=== PATIENT | male | born 1970 | race American Indian/Alaskan Native ===

== ENCOUNTER 2018-07-16 11:43 | Inpatient (IN) | payer MEDICARE ==
--- NOTE | 2018-07-16 12:05 | Emergency Department Report ---
HPI - General Time Seen by Provider: 07/16/18 11:56 - HPI HPI: 47-year-old male presents to the emergency department with complaint of a 3-4 day history of some slurred speech and difficulty talking. He also complains of some midsternal chest pain/pressure that has been going on since last night. The patient has a history of end-stage renal disease on dialysis on Sunday//Sunday. He last had a full dialysis session last . He did go to dialysis yesterday but only had about 2 hours done. 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 He did not receive anything for his symptoms and now. He slurred speech, he denies any headache, numbness or difficulty with movement but does say that he feels tremulous. ED Past Medical Hx - Medications Home Medications: Home Medications Medication Instructions Recorded Confirmed Last Taken Type AtorvaSTATin [Lipitor] 20 mg PO QHS 07/16/18 07/16/18 Unknown History Carvedilol [Coreg] 25 mg PO BID 07/16/18 07/16/18 Unknown History Ergocalciferol (Vitamin D2) 50,000 unit PO QWEEK 07/16/18 07/16/18 Unknown History [Drisdol] Gabapentin [Gralise] 300 mg PO QHS 07/16/18 07/16/18 Unknown History Losartan [Cozaar] 100 mg PO QDAY 07/16/18 07/16/18 Unknown History NIFEdipine [Nifedipine ER] 90 mg PO QHS 07/16/18 07/16/18 Unknown History Sevelamer Carbonate [Renvela] 2,400 mg PO TIDWM 07/16/18 07/16/18 Unknown History Topiramate [Topamax] 50 mg PO BID 07/16/18 07/16/18 Unknown History Venlafaxine [Effexor 37.5mg tab] 37.5 mg PO QDAY 07/16/18 07/16/18 Unknown History Vit B Comp C/Folic Acid/Vit D3 1 each PO DAILY 07/16/18 07/16/18 Unknown History [Dialyvite 800 Plus D Wafer] hydrOXYzine HCl [Hydroxyzine HCl] 25 mg PO TID 07/16/18 07/16/18 Unknown History ED Review of Systems ROS: Stated complaint: CHEST PAIN/SLURR SPEECH Other details as noted in HPI Comment: All other systems reviewed and negative Constitutional: denies: chills, fever Eyes: denies: eye pain, vision change ENT: denies: ear pain, throat pain Respiratory: denies: cough, wheezing Cardiovascular: chest pain, edema Gastrointestinal: denies: abdominal pain, vomiting Genitourinary: denies: dysuria, discharge Musculoskeletal: denies: back pain, arthralgia Skin: denies: rash, change in color Neurological: other (slurred speech). denies: headache Physical Exam - Physical Exam Physical Exam: GENERAL: The patient is well-developed well-nourished. HEENT: Normocephalic. Atraumatic. Patient has moist mucous membranes. EYES: Extraocular motions are intact. NECK: Supple. Trachea is midline. CHEST/LUNGS: Clear to auscultation. There is no respiratory distress noted. HEART/CARDIOVASCULAR: Regular. There is no tachycardia. There is no obvious murmur. ABDOMEN: Abdomen is soft, nontender. Patient has normal bowel sounds. There is no abdominal distention. SKIN: Skin is warm and dry. There are multiple b/l foot ulcerating wounds. Bilateral lower extremity nonpitting swelling. NEURO: The patient is awake, alert, and oriented. The patient is cooperative. The patient has no focal neurologic deficits. Patient has some stuttering speech. No pronator drift. No dysmetria. MUSCULOSKELETAL: There is no tenderness or deformity. There is no evidence of acute injury. ED Medical Decision Making - Lab Data Result diagrams: 07/16/18 12:12 07/16/18 12:16 - EKG Data -: EKG Interpreted by Me EKG shows normal: sinus rhythm, axis, intervals (prolonged DC interval), QRS complexes (LVH, Q waves to the inferior leads), ST-T waves Rate: bradycardia (58 bpm) - EKG Data When compared to previous EKG there are: previous EKG unavailable Interpretation: other (mild sinus bradycardia, prolonged DC interval, LVH, Q waves in the inferior leads) - Radiology Data Radiology results: report reviewed, image reviewed interpreted by me: Chest x-ray does not show any pneumothorax, pleural effusion, pneumonia or obvious focal consolidation. CT HEAD WITHOUT CONTRAST: HISTORY: Slurred speech. TECHNIQUE: Sequential 2.5mm CT images. COMPARISON: none. FINDINGS: Cerebral Parenchyma: Within normal limits. Cerebellum: Within normal limits. Brainstem: Within normal limits. Ventricles: Normal. Sella: Normal. Extra-axial spaces: Normal. Basal Cisterns: Normal. Intracranial Hemorrhage: None. Midline Shift: None. Calvarium: Normal. Sinuses: Normal. Mastoid Air Cells: Normal. Visualized Orbits: Normal. IMPRESSION: Cranial CT scan within normal limits. No acute intracranial process identified. Transcribed By: TTR Dictated By: SHARI MARTIN JR, MD Electronically Authenticated By: SHARI MARTIN JR, MD Signed Date/Time: 07/16/18 2435 - Medical Decision Making This patient presents to the emergency department with a complaint of a 3 day history of some slurred speech and a one-day history of some chest pain. EKG did not show any signs of ST elevation [place] or dysrhythmia. Chest x-ray did not show any acute process. CT scan of the head did not show any bleed, shift, mass, ischemia or any other acute process.the patient has elevated troponin levels but at the same time also is end-stage renal disease. He was given some aspirin to protect the heart. He has an elevated d-dimer level and a VQ scan will be ordered. The patient will be admitted to the hospital for further evaluation and treatment and was accepted for admission by the hospitalist, Dr. Carlton. - Differential Diagnosis MT, PE, CVA, TIA Critical Care Time: No Critical care attestation.: If time is entered above; I have spent that time in minutes in the direct care of this critically ill patient, excluding procedure time. ED Disposition Clinical Impression: Slurred speech, ESRD needing dialysis, Elevated troponin Chest pain Qualifiers: Chest pain type: unspecified Qualified Code(s): R07.9 - Chest pain, unspecified Disposition: OP ADMIT IP TO THIS HOSP Is pt being admited?: Yes Condition: Fair Time of Disposition: 14:45
[2018-07-16 12:33] LABS: Basophils % (Auto) 0.6 % (0.0-1.8); Eosinophils # (Auto) 0.3 K/mm3 (0.0-0.4); Eosinophils % (Auto) 3.1 % (0.0-4.3); Hematocrit 34.8 % (35.5-45.6); Hemoglobin 11.6 gm/dl (11.8-15.2); Lymphocytes # (Auto) 1.2 K/mm3 (1.2-5.4); Lymphocytes % (Auto) 13.7 % (13.4-35.0); Mean Corpuscular HGB Conc 33 % (32-34); Mean Corpuscular Volume 94 fl (84-94); Monocytes # (Auto) 0.8 K/mm3 (0.0-0.8); Monocytes % (Auto) 9.3 % (0.0-7.3); Platelet Count 138 K/mm3 (140-440); Red Cell Distribution Width 15.9 % (13.2-15.2)
[2018-07-16 12:37] LABS: INR 1.08 (0.87-1.13); Partial Thromboplastin Time 29.7 Sec. (24.2-36.6)
[2018-07-16 12:51] LABS: Calcium 8.8 mg/dL (8.4-10.2)
--- NOTE | 2018-07-16 13:35 | XRay Report ---
AP CHEST: HISTORY: chest pain Mild cardiomegaly is evident. This appears to be new since 10/07/09. Normal pulmonary vascularity. The lungs are clear. The bony structures are intact. IMPRESSION: Mild cardiomegaly. Lungs clear.
[2018-07-16 13:46] LABS: Chol/HDL Ratio 2.06 %
--- NOTE | 2018-07-16 13:51 | Cat Scan Report ---
CT HEAD WITHOUT CONTRAST: HISTORY: Slurred speech. TECHNIQUE: Sequential 2.5mm CT images. COMPARISON: none. FINDINGS: Cerebral Parenchyma: Within normal limits. Cerebellum: Within normal limits. Brainstem: Within normal limits. Ventricles: Normal. Sella: Normal. Extra-axial spaces: Normal. Basal Cisterns: Normal. Intracranial Hemorrhage: None. Midline Shift: None. Calvarium: Normal. Sinuses: Normal. Mastoid Air Cells: Normal. Visualized Orbits: Normal. IMPRESSION: Cranial CT scan within normal limits. No acute intracranial process identified.
[2018-07-16] MEDS ORDERED: BABY ASPIRIN PO ONE (14:48)
[2018-07-16] MEDS ORDERED: ASPIRIN ONE (16:40)
[2018-07-16] MEDS ORDERED: ZOFRAN IV PRN ×2 (20:34→20:58)
[2018-07-16] MEDS ORDERED: SODIUM CHLORIDE FLUSH SYRINGE 10 ML IV PRN ×2 (20:34→20:58)
--- NOTE | 2018-07-16 20:38 | History and Physical Report ---
History of Present Illness Date of examination: 07/16/18 Date of admission: 07/16/18 14:47 Chief complaint: Chest pain --for 1 day since last night History of present illness: 47-year-old -[place] male with history of end-stage renal disease, hypertension hyperlipidemia, vitamin D deficiency and peripheral neuropathy comes in for chest pain since last night. Chest pain is intermittent in nature. Retrosternal. Nonradiating. Pain is about 6 on a scale of 1-10. No diaphoresis no shortness of breath. Patient had dialysis yesterday but for only 2 hours. Patient says he had 3-4 days history of slurred speech but during my history taking there was no slurred speech or any weakness . No shortness of breath. No palpitations. No orthopnea. Patient also has a chronic open wound on left lower extremity elbows or ankle and medial aspect of the left foot. No fever or chills. Past Medical History End-stage renal disease Hypertension Hyperlipidemia Vitamin D deficiency. Peripheral neuropathy Depression Past surgical history AV fistula in left upper extremity, amputation of the right big toe cholecystectomy 4 eye surgeries Family history hypertension Diabetes--mother has both of them Social history does not smoke or abnormal alcohol Review of Systems ROS: Stated complaint: CHEST PAIN/SLURR SPEECH Other details as noted in HPI Comment: All other systems reviewed and negative Constitutional: denies: chills, fever Eyes: denies: eye pain, vision change ENT: denies: ear pain, throat pain Respiratory: denies: cough, wheezing Cardiovascular: chest pain, edema Gastrointestinal: denies: abdominal pain, vomiting Genitourinary: denies: dysuria, discharge Musculoskeletal: denies: back pain, arthralgia Skin: denies: rash, change in color Neurological: other (slurred speech). denies: headache 14 point review of systems--otherwise negative Medications and Allergies Allergies Allergy/AdvReac Type Severity Reaction Status Date / Time No Known Allergies Allergy Unverified 07/16/18 16:37 Home Medications Medication Instructions Recorded Confirmed Last Taken Type AtorvaSTATin [Lipitor] 20 mg PO QHS 07/16/18 07/16/18 Unknown History Carvedilol [Coreg] 25 mg PO BID 07/16/18 07/16/18 Unknown History Ergocalciferol (Vitamin D2) 50,000 unit PO QWEEK 07/16/18 07/16/18 Unknown History [Drisdol] Gabapentin [Gralise] 300 mg PO QHS 07/16/18 07/16/18 Unknown History Losartan [Cozaar] 100 mg PO QDAY 07/16/18 07/16/18 Unknown History NIFEdipine [Nifedipine ER] 90 mg PO QHS 07/16/18 07/16/18 Unknown History Sevelamer Carbonate [Renvela] 2,400 mg PO TIDWM 07/16/18 07/16/18 Unknown History Topiramate [Topamax] 50 mg PO BID 07/16/18 07/16/18 Unknown History Venlafaxine [Effexor 37.5mg tab] 37.5 mg PO QDAY 07/16/18 07/16/18 Unknown History Vit B Comp C/Folic Acid/Vit D3 1 each PO DAILY 07/16/18 07/16/18 Unknown History [Dialyvite 800 Plus D Wafer] hydrOXYzine HCl [Hydroxyzine HCl] 25 mg PO TID 07/16/18 07/16/18 Unknown History Exam - Constitutional Vitals: Temp Pulse Resp BP Pulse Ox 97.7 F 58 L 18 118/80 99 07/16/18 18:52 07/16/18 18:52 07/16/18 18:52 07/16/18 18:52 07/16/18 16:00 General appearance: Present: no acute distress, well-nourished - EENT Eyes: Present: PERRL ENT: hearing intact, clear oral mucosa - Neck Neck: Present: supple, normal ROM - Respiratory Respiratory effort: normal Respiratory: bilateral: CTA - Cardiovascular Rhythm: regular Heart Sounds: Present: S1 & S2. Absent: rub, click - Extremities Extremities: No edema, abnormal Extremity abnormal: ulceration (right foot ulcer 6 cm x 3 cm on the medial aspect of the left foot. Superficial and erythematous infection. Also open ulcer on the left tibia L6 centimeters above the ankle anteriorly. No drainage.), other (right foot great toe amputated amputated, hyperpigmentation both lower extremities.) Peripheral Pulses: within normal limits - Abdominal General gastrointestinal: Present: soft, non-tender, non-distended, normal bowel sounds Male genitourinary: Present: normal - Rectal Rectal Exam: deferred - Integumentary Integumentary: Present: clear, warm, dry - Musculoskeletal Musculoskeletal: gait normal, strength equal bilaterally - Psychiatric Psychiatric: appropriate mood/affect, intact judgment & insight - Neurologic Neurologic: CNII-XII intact, moves all extremities - Allied Health Allied health notes reviewed: nursing, case management Results - Labs CBC & Chem 7: 07/16/18 12:12 07/16/18 12:16 Labs: Laboratory Last Values WBC 9.0 K/mm3 (4.5-11.0) 07/16/18 12:12 RBC 3.70 M/mm3 (3.65-5.03) 07/16/18 12:12 Hgb 11.6 gm/dl (11.8-15.2) L 07/16/18 12:12 Hct 34.8 % (35.5-45.6) L 07/16/18 12:12 MCV 94 fl (84-94) 07/16/18 12:12 MCH 31 pg (28-32) 07/16/18 12:12 MCHC 33 % (32-34) 07/16/18 12:12 RDW 15.9 % (13.2-15.2) H 07/16/18 12:12 Plt Count 138 K/mm3 (140-440) L 07/16/18 12:12 Lymph % (Auto) 13.7 % (13.4-35.0) 07/16/18 12:12 [place] % (Auto) 9.3 % (0.0-7.3) H 07/16/18 12:12 Eos % (Auto) 3.1 % (0.0-4.3) 07/16/18 12:12 Baso % (Auto) 0.6 % (0.0-1.8) 07/16/18 12:12 Lymph # 1.2 K/mm3 (1.2-5.4) 07/16/18 12:12 [place] # 0.8 K/mm3 (0.0-0.8) 07/16/18 12:12 Eos # 0.3 K/mm3 (0.0-0.4) 07/16/18 12:12 Baso # 0.0 K/mm3 (0.0-0.1) 07/16/18 12:12 Seg Neutrophils % 73.3 % (40.0-70.0) H 07/16/18 12:12 Seg Neutrophils # 6.6 K/mm3 (1.8-7.7) 07/16/18 12:12 PT 14.7 Sec. (12.2-14.9) 07/16/18 12:16 INR 1.08 (0.87-1.13) 07/16/18 12:16 APTT 29.7 Sec. (24.2-36.6) 07/16/18 12:16 D-Dimer 473.16 ng/mlDDU (0-234) H 07/16/18 15:23 Sodium 138 mmol/L (137-145) 07/16/18 12:16 Potassium 4.9 mmol/L (3.6-5.0) 07/16/18 12:16 Chloride 97.2 mmol/L (98-107) L 07/16/18 12:16 Carbon Dioxide 20 mmol/L (22-30) L 07/16/18 12:16 Anion Gap 26 mmol/L 07/16/18 12:16 BUN 83 mg/dL (9-20) H 07/16/18 12:16 Creatinine 8.8 mg/dL (0.8-1.5) H 07/16/18 12:16 Estimated GFR 8 ml/min 07/16/18 12:16 BUN/Creatinine Ratio 9 % 07/16/18 12:16 Glucose 169 mg/dL (75-100) H 07/16/18 12:16 Calcium 8.8 mg/dL (8.4-10.2) 07/16/18 12:16 Total Bilirubin 0.40 mg/dL (0.1-1.2) 07/16/18 12:16 AST 32 units/L (5-40) 07/16/18 12:16 ALT 46 units/L (7-56) 07/16/18 12:16 Alkaline Phosphatase 241 units/L (35-129) H 07/16/18 12:16 Troponin T 1.060 ng/mL (0.00-0.029) H* 07/16/18 19:00 Total Protein 7.9 g/dL (6.3-8.2) 07/16/18 12:16 Albumin 3.0 g/dL (3.9-5) L 07/16/18 12:16 Albumin/Globulin Ratio 0.6 % 07/16/18 12:16 Triglycerides 36 mg/dL (2-149) 07/16/18 12:16 Cholesterol 91 mg/dL (50-199) 07/16/18 12:16 LDL Cholesterol Direct 50 mg/dL (50-130) 07/16/18 12:16 HDL Cholesterol 44 mg/dL (40-59) 07/16/18 12:16 Cholesterol/HDL Ratio 2.06 % 07/16/18 12:16 - Imaging and Cardiology EKG: report reviewed Chest x-ray: report reviewed Imaging and Cardiology: EKG did not show any signs of ST elevation [place] or dysrhythmia Chest x-ray did not show any acute process. CT scan of the head did not show any bleed, shift, mass, ischemia or any other acute process. The patient has elevated troponin levels but at the same time also is end-stage renal disease. He has an elevated d-dimer level and a VQ scan will be ordered. Assessment and Plan Advance Directives: Yes (full code) VTE prophylaxis?: Chemical Plan of care discussed with patient/family: Yes - Patient Problems (1) Chest pain Current Visit: Yes Status: Acute Qualifiers: Chest pain type: unspecified Qualified Code(s): R07.9 - Chest pain, unspecified Plan to address problem: Serial troponins and Lexiscan ordered Costochondritis and gastroesophageal reflux disease in the differential diagnosis Costochondritis unlikely--no chest wall tenderness (2) ESRD needing dialysis Current Visit: Yes Status: Chronic Plan to address problem: Nephrology consultation for hemo- dialysis (3) Type 2 diabetes mellitus Current Visit: Yes Status: Chronic Qualifiers: Diabetes mellitus rn long term care insulin use: without intermediate use Plan to address problem: Coverage for now Check hemoglobin A1c (4) Elevated troponin Current Visit: Yes Status: Acute Plan to address problem: Secondary to end-stage renal disease Alison scan ordered (5) Slurred speech Current Visit: Yes Status: Resolved Plan to address problem: There is no slurred speech during my examination and patient is a very poor historian TIA workup was not ordered because there was no slurred speech. Patient says he had slurred speech for 4 days which is unusual to resolve by itself in the emergency room. Hence doubt the complaint. Hence no workup on TIA. (6) Hypertension Current Visit: Yes Status: Chronic Qualifiers: Hypertension type: essential hypertension Qualified Code(s): I10 - Essential (primary) hypertension Plan to address problem: Continue antihypertensives (7) Hyperlipidemia Current Visit: Yes Status: Chronic Qualifiers: Hyperlipidemia type: mixed hyperlipidemia Qualified Code(s): E78.2 - Mixed hyperlipidemia Plan to address problem: Continue statins (8) Peripheral neuropathy Current Visit: Yes Status: Chronic Qualifiers: Peripheral neuropathy type: polyneuropathy, unspecified Qualified Code(s): G62.9 - Polyneuropathy, unspecified Plan to address problem: Continue gabapentin (9) Depression Current Visit: Yes Status: Chronic Qualifiers: Depression Type: unspecified Qualified Code(s): F32.9 - Major depressive disorder, single episode, unspecified Plan to address problem: Continue Effexor 37.5 mg daily (10) Vitamin D deficiency Current Visit: Yes Status: Chronic Plan to address problem: Continue vitamin D per schedule (11) DVT prophylaxis Current Visit: Yes Status: Acute Plan to address problem: On heparin and GI prophylaxis
[2018-07-16] MEDS ORDERED: TYLENOL PO PRN (20:58)
[2018-07-16] MEDS ORDERED: SODIUM CHLORIDE FLUSH SYRINGE 10 ML IV SCH (22:00)
[2018-07-16] MEDS ORDERED: HEPARIN SUB-Q SCH (22:00)
[2018-07-16] MEDS: PROCARDIA XL PO SCH (22:47)
[2018-07-16] MEDS: PEPCID PO SCH (22:47)
[2018-07-16] MEDS: COZAAR PO SCH (22:47)
[2018-07-16] MEDS: HumaLOG SUB-Q SCH (22:50)
[2018-07-16] MEDS: Renal Caps PO SCH (22:51)
[2018-07-16] MEDS: COREG PO SCH (22:51)
[2018-07-16] MEDS: TOPAMAX PO SCH (22:52)
[2018-07-16] MEDS: EFFEXOR PO SCH (22:52)
[2018-07-16] MEDS: SODIUM CHLORIDE FLUSH SYRINGE 10 ML IV SCH (22:54)
[2018-07-16] MEDS: PERCOCET 5/325 PO PRN (23:40)
[2018-07-16] MEDS: ATARAX PO SCH (23:40)
[2018-07-17 06:35] LABS: Basophils # (Auto) 0.1 K/mm3 (0.0-0.1); Basophils % (Auto) 0.7 % (0.0-1.8); Eosinophils # (Auto) 0.2 K/mm3 (0.0-0.4); Eosinophils % (Auto) 3.1 % (0.0-4.3); Hematocrit 34.6 % (35.5-45.6); Hemoglobin 11.3 gm/dl (11.8-15.2); Lymphocytes % (Auto) 12.1 % (13.4-35.0); Mean Corpuscular HGB Conc 33 % (32-34); Mean Corpuscular Volume 95 fl (84-94); Monocytes # (Auto) 0.8 K/mm3 (0.0-0.8); Platelet Count 129 K/mm3 (140-440); Red Blood Count 3.63 M/mm3 (3.65-5.03); Red Cell Distribution Width 16.2 % (13.2-15.2)
[2018-07-17 07:02] LABS: Albumin 3.2 g/dL (3.9-5); Calcium 8.6 mg/dL (8.4-10.2)
[2018-07-17] MEDS: HumaLOG SUB-Q SCH ×4 (07:30→22:45)
[2018-07-17] MEDS ORDERED: ATARAX PO SCH (08:00)
[2018-07-17] MEDS: RENVELA PO SCH ×3 (08:00→19:11)
[2018-07-17] MEDS: ATARAX PO SCH ×3 (08:00→21:25)
[2018-07-17] MEDS: EFFEXOR PO SCH (10:00)
[2018-07-17] MEDS: VITAMIN D2 PO SCH (10:00)
[2018-07-17] MEDS: TOPAMAX PO SCH ×2 (10:00→22:45)
[2018-07-17] MEDS: COZAAR PO SCH (10:00)
[2018-07-17] MEDS: COREG PO SCH ×2 (10:00→22:45)
[2018-07-17] MEDS: SODIUM CHLORIDE FLUSH SYRINGE 10 ML IV SCH ×2 (10:00→22:50)
[2018-07-17] MEDS: PEPCID PO SCH ×2 (10:00→22:45)
[2018-07-17] MEDS: Renal Caps PO SCH (10:00)
--- NOTE | 2018-07-17 11:07 | Consultation ---
History of Present Illness - Reason for Consult Consult date: 07/17/18 end stage renal disease - History of Present Illness This is a 47 year old male who presented to the hospital for evaluation of slurred speech. Patient states on Sunday he began to have slurred speech and so he went to [facility] and they gave him fluids and send him home per patient. Patient decided to come to this E. for further evaluation. Patient has ESRD and receives hemodialysis at [facility] and states he was last dialyzed there on as Sunday he was at [facility] and yesterday he came here. Patient also has history of Hypertension, Diabetes Mellitus and PVD. We are being consulted for management of this patient's ESRD. Past History Past Medical History: diabetes, dialysis, hypertension, hyperlipidemia, PVD, renal failure Past Surgical History: Other (Left AVF placement) Social history: no significant social history Family history: no significant family history Medications and Allergies Allergies Allergy/AdvReac Type Severity Reaction Status Date / Time No Known Allergies Allergy Unverified 07/16/18 16:37 Home Medications Medication Instructions Recorded Confirmed Last Taken Type AtorvaSTATin [Lipitor] 20 mg PO QHS 07/16/18 07/16/18 Unknown History Carvedilol [Coreg] 25 mg PO BID 07/16/18 07/16/18 Unknown History Ergocalciferol (Vitamin D2) 50,000 unit PO QWEEK 07/16/18 07/16/18 Unknown History [Drisdol] Gabapentin [Gralise] 300 mg PO QHS 07/16/18 07/16/18 Unknown History Losartan [Cozaar] 100 mg PO QDAY 07/16/18 07/16/18 Unknown History NIFEdipine [Nifedipine ER] 90 mg PO QHS 07/16/18 07/16/18 Unknown History Sevelamer Carbonate [Renvela] 2,400 mg PO TIDWM 07/16/18 07/16/18 Unknown History Topiramate [Topamax] 50 mg PO BID 07/16/18 07/16/18 Unknown History Venlafaxine [Effexor 37.5mg tab] 37.5 mg PO QDAY 07/16/18 07/16/18 Unknown History Vit B Comp C/Folic Acid/Vit D3 1 each PO DAILY 07/16/18 07/16/18 Unknown History [Dialyvite 800 Plus D Wafer] hydrOXYzine HCl [Hydroxyzine HCl] 25 mg PO TID 07/16/18 07/16/18 Unknown History Active Meds: Active Medications Acetaminophen (Tylenol) 650 mg PO Q4H PRN PRN Reason: Pain MILD(1-3)/Fever >100.5/SANCEHZ Atorvastatin Calcium (Lipitor) 20 mg PO QHS [facility] Last Admin: 07/16/18 22:51 Dose: 20 mg Documented by: Carvedilol (Coreg) 25 mg PO BID [facility] Last Admin: 07/16/18 22:51 Dose: Not Given Documented by: Ergocalciferol (Vitamin D2) 50,000 unit PO [facility] Famotidine (Pepcid) 10 mg PO BID [facility] Last Admin: 07/16/18 22:47 Dose: 10 mg Documented by: Heparin Sodium (Porcine) (Heparin) 5,000 unit SUB-Q Q12HR [facility] Last Admin: 07/16/18 22:53 Dose: 5,000 unit Documented by: Hydroxyzine HCl (Atarax) 25 mg PO TID [facility] Last Admin: 07/16/18 23:40 Dose: Not Given Documented by: Insulin Human Lispro (Humalog) 0 unit SUB-Q [facility]; Protocol Last Admin: 07/16/18 22:50 Dose: 8 unit Documented by: Losartan Potassium (Cozaar) 100 mg PO QDAY [facility] Last Admin: 07/16/18 22:47 Dose: 100 mg Documented by: Multivit/Ca Carb/B Cmplx/FA/Prenat (Renal Caps) 1 cap PO DAILY [facility] Last Admin: 07/16/18 22:51 Dose: 1 cap Documented by: Nifedipine (Procardia Xl) 90 mg PO QHS [facility] Last Admin: 07/16/18 22:47 Dose: 90 mg Documented by: Ondansetron HCl (Zofran) 4 mg IV Q8H PRN PRN Reason: Nausea And Vomiting Oxycodone/Acetaminophen (Percocet 5/325) 1 tab PO Q6H PRN PRN Reason: Pain, Moderate (4-6) Last Admin: 07/16/18 23:40 Dose: 1 tab Documented by: Sevelamer Carbonate (Renvela) 2,400 mg PO TIDWM [facility] Sodium Chloride (Sodium Chloride Flush Syringe 10 Ml) 10 ml IV BID [facility] Last Admin: 07/16/18 22:54 Dose: 10 ml Documented by: Sodium Chloride (Sodium Chloride Flush Syringe 10 Ml) 10 ml IV PRN PRN PRN Reason: LINE FLUSH Topiramate (Topamax) 50 mg PO BID [facility] Last Admin: 07/16/18 22:52 Dose: 50 mg Documented by: Venlafaxine HCl (Effexor) 37.5 mg PO QDAY [facility] Last Admin: 07/16/18 22:52 Dose: 37.5 mg Documented by: Review of Systems Constitutional: fatigue, no weight loss, no weight gain, no fever, no chills, no sweats Ears, nose, mouth and throat: no ear pain, no ear discharge, no tinnitis, no decreased hearing, no nose pain Cardiovascular: edema, no chest pain, no orthopnea, no palpitations, no rapid/irregular heart beat, no syncope, no lightheadedness, no shortness of breath Respiratory: no cough with sputum, no shortness of breath, no dyspnea on exertion Gastrointestinal: no abdominal pain, no nausea, no vomiting, no diarrhea, no constipation Rectal: no pain, no incontinence, no bleeding Musculoskeletal: other (wounds to feet), no neck stiffness, no neck pain, no shooting arm pain Integumentary: foot/leg ulcers Neurological: no head injury, no transient paralysis, no seizures, no syncope, no tremors Psychiatric: no anxiety, no memory loss, no change in sleep habits, no sleep disturbances, no insomnia, no hypersomnia Endocrine: no cold intolerance, no heat intolerance, no polyphagia, no excessive thirst, no polydipsia Hematologic/Lymphatic: no easy bruising, no easy bleeding, no lymphadenopathy Exam - Vital Signs Vital signs: Vital Signs Temp Pulse Resp BP Pulse Ox 97.7 F 60 18 111/69 99 07/16/18 11:49 07/16/18 11:49 07/16/18 11:49 07/16/18 11:49 07/16/18 11:49 - General Appearance General appearance: well-developed, appears stated age, fatigue EENT: ATNC, PERRL, hearing intact, vision intact Neck: Present: neck supple, trachea midline Respiratory: Decreased Breath Sounds Heart: bradycardia, S1S2 Gastrointestinal: Present: normoactive bowel sounds Integumentary: warm and dry, hyperpigmentation, chronic venous stasis Neurologic: alert and oriented x3, other (has slurred speech) Musculoskeletal: Present: joint swelling, other (has wounds to bilateral legs, has andrea dressing. Has left AVF intact) Psychiatric: cooperative Results - Lab Results 07/17/18 05:58 07/17/18 05:58 Most recent lab results Calcium 8.6 mg/dL (8.4-10.2) 07/17/18 05:58 Assessment and Plan End Stage Renal Disease: -Hemodialysis today for UF and clearance -Has left AVF -Fluid restriction of 1 liter per day -Renal diet -Obtain daily weights -Monitor I/O's -Assess dialysis needs daily Slurred Speech: -Head CT normal -As per Attending PVD: -Duplex scan- pending Hypertension: -On Coreg and Losartan -Adjust regimen as needed Diabetes Mellitus: -On insulin as per primary
[2018-07-17] MEDS ORDERED: NACL 0.9% 100 ML IV PRN (11:23)
[2018-07-17] MEDS ORDERED: ALBURX 25% (ALBUMIN) IV PRN (11:23)
--- NOTE | 2018-07-17 12:02 | Consultation ---
History of Present Illness Consult date: 07/17/18 Requesting physician: BRET VELAZQUEZ Consult reason: chest pain, elevated troponin History of present illness: The pt is a 47 year old male with past medical history of ESRD on HD ([facility]), HTN, DM, PVD, blindness. He reports that he sees a stitch welder at [facility] once per year. He presented with complaints of chest pain since last night. He states that he was laying in bed when the pain began. He describes the pain as a constant precordial pressure which is currently resolved. He also experienced some SOB. He admits that he missed dialysis on both this past Sunday and Sunday. Pt denies any prior AMI, CAD, HF or arrhythmia. He denies any prior cardiac w/u. Past History Past Medical History: diabetes, dialysis, hypertension, PVD, renal failure Past Surgical History: Other (Left AVF placement) Social history: no significant social history Family history: no significant family history Medications and Allergies Allergies Allergy/AdvReac Type Severity Reaction Status Date / Time No Known Allergies Allergy Unverified 07/16/18 16:37 Home Medications Medication Instructions Recorded Confirmed Last Taken Type AtorvaSTATin [Lipitor] 20 mg PO QHS 07/16/18 07/16/18 Unknown History Carvedilol [Coreg] 25 mg PO BID 07/16/18 07/16/18 Unknown History Ergocalciferol (Vitamin D2) 50,000 unit PO QWEEK 07/16/18 07/16/18 Unknown History [Drisdol] Gabapentin [Gralise] 300 mg PO QHS 07/16/18 07/16/18 Unknown History Losartan [Cozaar] 100 mg PO QDAY 07/16/18 07/16/18 Unknown History NIFEdipine [Nifedipine ER] 90 mg PO QHS 07/16/18 07/16/18 Unknown History Sevelamer Carbonate [Renvela] 2,400 mg PO TIDWM 07/16/18 07/16/18 Unknown History Topiramate [Topamax] 50 mg PO BID 07/16/18 07/16/18 Unknown History Venlafaxine [Effexor 37.5mg tab] 37.5 mg PO QDAY 07/16/18 07/16/18 Unknown History Vit B Comp C/Folic Acid/Vit D3 1 each PO DAILY 07/16/18 07/16/18 Unknown History [Dialyvite 800 Plus D Wafer] hydrOXYzine HCl [Hydroxyzine HCl] 25 mg PO TID 07/16/18 07/16/18 Unknown History Active Meds: Active Medications Acetaminophen (Tylenol) 650 mg PO Q4H PRN PRN Reason: Pain MILD(1-3)/Fever >100.5/SANCHEZ Albumin Human (Alburx 25% (Albumin)) 12.5 gm IV JOSE PRN PRN Reason: Hypotension Atorvastatin Calcium (Lipitor) 20 mg PO QHS [facility] Last Admin: 07/16/18 22:51 Dose: 20 mg Documented by: Carvedilol (Coreg) 25 mg PO BID [facility] Last Admin: 07/16/18 22:51 Dose: Not Given Documented by: Ergocalciferol (Vitamin D2) 50,000 unit PO We [facility] Famotidine (Pepcid) 10 mg PO BID [facility] Last Admin: 07/16/18 22:47 Dose: 10 mg Documented by: Heparin Sodium (Porcine) (Heparin) 5,000 unit SUB-Q Q12HR [facility] Last Admin: 07/16/18 22:53 Dose: 5,000 unit Documented by: Hydroxyzine HCl (Atarax) 25 mg PO TID [facility] Last Admin: 07/16/18 23:40 Dose: Not Given Documented by: Sodium Chloride (Nacl 0.9%) 100 mls @ 999 mls/hr IV JOSE PRN PRN Reason: Hypotension Insulin Human Lispro (Humalog) 0 unit SUB-Q ACHS [facility]; Protocol Last Admin: 07/16/18 22:50 Dose: 8 unit Documented by: Losartan Potassium (Cozaar) 100 mg PO QDAY [facility] Last Admin: 07/16/18 22:47 Dose: 100 mg Documented by: Multivit/Ca Carb/B Cmplx/FA/Prenat (Renal Caps) 1 cap PO DAILY [facility] Last Admin: 07/16/18 22:51 Dose: 1 cap Documented by: Nifedipine (Procardia Xl) 90 mg PO QHS [facility] Last Admin: 07/16/18 22:47 Dose: 90 mg Documented by: Ondansetron HCl (Zofran) 4 mg IV Q8H PRN PRN Reason: Nausea And Vomiting Oxycodone/Acetaminophen (Percocet 5/325) 1 tab PO Q6H PRN PRN Reason: Pain, Moderate (4-6) Last Admin: 07/16/18 23:40 Dose: 1 tab Documented by: Sevelamer Carbonate (Renvela) 2,400 mg PO TIDWM [facility] Sodium Chloride (Sodium Chloride Flush Syringe 10 Ml) 10 ml IV BID [facility] Last Admin: 07/16/18 22:54 Dose: 10 ml Documented by: Sodium Chloride (Sodium Chloride Flush Syringe 10 Ml) 10 ml IV PRN PRN PRN Reason: LINE FLUSH Topiramate (Topamax) 50 mg PO BID [facility] Last Admin: 07/16/18 22:52 Dose: 50 mg Documented by: Venlafaxine HCl (Effexor) 37.5 mg PO QDAY [facility] Last Admin: 07/16/18 22:52 Dose: 37.5 mg Documented by: Review of Systems Constitutional: no weight loss, no weight gain, no fever, no chills, no sweats Ears, nose, mouth and throat: no ear pain, no nose pain, no sinus pressure, no sinus pain Cardiovascular: chest pain, shortness of breath, high blood pressure, no orthopnea, no palpitations, no rapid/irregular heart beat, no edema, no syncope, no lightheadedness, no paroxysmal nocturnal dyspnea, no leg edema Respiratory: shortness of breath, no cough, no congestion, no wheezing, no pain on inspiration Gastrointestinal: no abdominal pain, no nausea, no vomiting, no diarrhea, no constipation, no change in bowel habits Genitourinary Male: no dysuria, no hematuria, no flank pain, no discharge, no urinary frequency, no urinary hesitancy Musculoskeletal: no neck stiffness, no neck pain, no shooting arm pain, no arm numbness/tingling, no low back pain, no shooting leg pain, no leg numbness/tingling Integumentary: no rash, no pruritis, no redness, no sores, no wounds Neurological: no head injury, no paralysis, no weakness, no parathesias, no numbness, no tingling, no seizures, no syncope Psychiatric: no anxiety Endocrine: no cold intolerance, no heat intolerance Hematologic/Lymphatic: no easy bruising, no easy bleeding Allergic/Immunologic: no urticaria, no wheezing Physical Examination Vital Signs Temp Pulse Resp BP Pulse Ox 97.7 F 60 18 111/69 99 07/16/18 11:49 07/16/18 11:49 07/16/18 11:49 07/16/18 11:49 07/16/18 11:49 General appearance: no acute distress HEENT: Positive: Normocephaly, Mucus Membranes Moist Neck: Positive: neck supple, trachea midline Cardiac: Positive: Reg Rate and Rhythm, S1/S2 Lungs: Positive: Decreased Breath Sounds Neuro: Positive: Grossly Intact Abdomen: Positive: Soft. Negative: Tender Skin: Positive: Other (bilateral foot wounds in dressings ) Extremities: Present: Other (bilateral foot wounds covered with dressings ) Results 07/17/18 05:58 07/17/18 05:58 Cardiac Enzymes 07/16/18 07/17/18 Range/Units 12:16 05:58 AST 32 33 (5-40) units/L Coagulation 07/16/18 Range/Units 12:16 PT 14.7 (12.2-14.9) Sec. INR 1.08 (0.87-1.13) APTT 29.7 (24.2-36.6) Sec. Lipids 07/16/18 Range/Units 12:16 Triglycerides 36 (2-149) mg/dL Cholesterol 91 (50-199) mg/dL HDL Cholesterol 44 (40-59) mg/dL Cholesterol/HDL Ratio 2.06 % CBC 07/16/18 07/17/18 Range/Units 12:12 05:58 WBC 9.0 8.0 (4.5-11.0) K/mm3 RBC 3.70 3.63 L (3.65-5.03) M/mm3 Hgb 11.6 L 11.3 L (11.8-15.2) gm/dl Hct 34.8 L 34.6 L (35.5-45.6) % Plt Count 138 L 129 L (140-440) K/mm3 Lymph # 1.2 1.0 L (1.2-5.4) K/mm3 [place] # 0.8 0.8 (0.0-0.8) K/mm3 Eos # 0.3 0.2 (0.0-0.4) K/mm3 Baso # 0.0 0.1 (0.0-0.1) K/mm3 Comprehensive Metabolic Panel 07/16/18 07/17/18 Range/Units 12:16 05:58 Sodium 138 137 (137-145) mmol/L Potassium 4.9 4.9 (3.6-5.0) mmol/L Chloride 97.2 L 94.9 L (98-107) mmol/L Carbon Dioxide 20 L 21 L (22-30) mmol/L BUN 83 H 94 H (9-20) mg/dL Creatinine 8.8 H 9.5 H (0.8-1.5) mg/dL Glucose 169 H 281 H (75-100) mg/dL Calcium 8.8 8.6 (8.4-10.2) mg/dL AST 32 33 (5-40) units/L ALT 46 48 (7-56) units/L Alkaline Phosphatase 241 H 257 H (35-129) units/L Total Protein 7.9 8.2 (6.3-8.2) g/dL Albumin 3.0 L 3.2 L (3.9-5) g/dL - Imaging and Cardiology Echo: pending EKG: report reviewed, image reviewed EKG interpretations - Telemetry EKG Rhythm: Sinus Rhythm - EKG Sinus rhythms and dysrhythmias: sinus rhythm Chamber hypertrophy or enlargement: left ventricular hypertro Myocardial infarction: inferior WI (old age inde Assessment and Plan Initiate heparin gtt and ASA in setting of significant elevated cardiac enzymes, although suspect NSTEMI type 2. Pt currently reports resolution of chest pain, ECG with no acute ischemic changes. Agree with all other present cardiac management. Obtain echo. Pt with elevated DDimer - he is to have V/Q scan today and stress test on Sunday, 07/19. The patient has been seen in conjunction with Dr. Caren Asif who agrees with the assessment and plan of care. - Patient Problems (1) Chest pain Current Visit: Yes Status: Acute Qualifiers: Chest pain type: unspecified Qualified Code(s): R07.9 - Chest pain, unspecified (2) NSTEMI (non-ST elevated myocardial infarction) Current Visit: Yes Status: Acute (3) Elevated d-dimer Current Visit: Yes Status: Acute (4) ESRD needing dialysis Current Visit: Yes Status: Chronic (5) Hypertension Current Visit: Yes Status: Chronic Qualifiers: Hypertension type: essential hypertension Qualified Code(s): I10 - Essential (primary) hypertension (6) Type 2 diabetes mellitus Current Visit: Yes Status: Chronic Qualifiers: Diabetes mellitus manager long term care insulin use: without nursing home use (7) PVD (peripheral vascular disease) Current Visit: Yes Status: Chronic
[2018-07-17] MEDS ORDERED: HEPARIN 10,000 UNITS/10 ML IV ONE (12:11)
--- NOTE | 2018-07-17 12:35 | Nuclear Medicine Report ---
LUNG SCAN, VENTILATION AND PERFUSION: History: Elevated d-dimer. Technique: 5mci of Tc99m MAA was infused for the perfusion images. 15mci XE 133 gas was inhaled for the ventilatory images. Correlation is made with a chest x-ray dated . Findings: Inhalation of Xenon gas demonstrates a normal distribution of the activity throughout both lungs. The wash out phases show no focal retention of activity. After injection of Technetium 99m macroaggregated albumin gamma camera imaging of the lungs in multiple projections demonstrates normal pulmonary contours with a homogeneous distribution of activity. No focal areas of perfusion deficiency are identified. IMPRESSION: Low probability for pulmonary embolus.
[2018-07-17 13:20] LABS: Hematocrit 34.4 % (35.5-45.6); Hemoglobin 11.4 gm/dl (11.8-15.2)
[2018-07-17 13:27] LABS: INR 1.19 (0.87-1.13)
[2018-07-17 13:28] LABS: Partial Thromboplastin Time 32.6 Sec. (24.2-36.6)
--- NOTE | 2018-07-17 15:44 | Progress Note ---
Assessment and Plan Assessment and plan: (1) Chest pain - Troponins were negative - We'll do stress test (2) ESRD needing dialysis - Nephrology consulted and will have hemodialysis (3) Type 2 diabetes mellitus - Poorly controlled - Hemoglobin A1c is 10.5 - Sliding-scale insulin, Lantus 20 units daily at bedtime will be started tonight, I'll give him a dose of Lantus 10 units - Accu-Chek, ADA diet, monitoring and adjust as needed (4) Elevated troponin - Cardiology consulted - We'll follow the results of Lexiscan (5) Slurred speech - Patient said he went [place] when he has slurred speech and told has TIA but no workup was done - CT head was done and negative (6) Hypertension Continue antihypertensives (7) Hyperlipidemia Continue statins (8) Peripheral neuropathy Continue gabapentin (9) Depression Continue Effexor 37.5 mg daily (10) Vitamin D deficiency Continue vitamin D per schedule (11) DVT prophylaxis On heparin and GI prophylaxis History Interval history: Patient was seen and evaluated this morning, patient is legally blind. Alert and oriented. Noticed leg swelling and ulcer 3 days ago. Hospitalist Physical - Physical exam Narrative exam: Not in cardiopulmonary distress. The patient appeared well nourished and normally developed. Vital signs as documented. Head exam is unremarkable. No scleral icterus . Neck is without jugular venous distension, thyromegaly, or carotid bruits. Lungs are clear to auscultation. Cardiac exam reveals regular rate and Rhythm. First and second heart sounds normal. No murmurs, rubs or gallops. Abdominal exam reveals normal bowel sounds, no masses, no organomegaly and no aortic enlargement. Extremities bliateral cronic LE swelling and ulcer on the left leg and foot. 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 No focal weakness. - Constitutional Vitals: Temp Pulse Resp BP Pulse Ox 97.9 F 58 L 18 141/80 97 07/17/18 01:42 07/17/18 04:00 07/17/18 01:12 07/17/18 01:12 07/17/18 08:57 General appearance: Present: no acute distress Results - Labs CBC & Chem 7: 07/17/18 12:52 07/17/18 05:58 Labs: Laboratory Last Values WBC 8.0 K/mm3 (4.5-11.0) 07/17/18 05:58 RBC 3.63 M/mm3 (3.65-5.03) L 07/17/18 05:58 Hgb 11.4 gm/dl (11.8-15.2) L 07/17/18 12:52 Hct 34.4 % (35.5-45.6) L 07/17/18 12:52 MCV 95 fl (84-94) H 07/17/18 05:58 MCH 31 pg (28-32) 07/17/18 05:58 MCHC 33 % (32-34) 07/17/18 05:58 RDW 16.2 % (13.2-15.2) H 07/17/18 05:58 Plt Count 122 K/mm3 (140-440) L 07/17/18 12:52 Lymph % (Auto) 12.1 % (13.4-35.0) L 07/17/18 05:58 [place] % (Auto) 10.0 % (0.0-7.3) H 07/17/18 05:58 Eos % (Auto) 3.1 % (0.0-4.3) 07/17/18 05:58 Baso % (Auto) 0.7 % (0.0-1.8) 07/17/18 05:58 Lymph # 1.0 K/mm3 (1.2-5.4) L 07/17/18 05:58 [place] # 0.8 K/mm3 (0.0-0.8) 07/17/18 05:58 Eos # 0.2 K/mm3 (0.0-0.4) 07/17/18 05:58 Baso # 0.1 K/mm3 (0.0-0.1) 07/17/18 05:58 Seg Neutrophils % 74.1 % (40.0-70.0) H 07/17/18 05:58 Seg Neutrophils # 5.9 K/mm3 (1.8-7.7) 07/17/18 05:58 PT 15.9 Sec. (12.2-14.9) H 07/17/18 12:52 INR 1.19 (0.87-1.13) H 07/17/18 12:52 APTT 32.6 Sec. (24.2-36.6) 07/17/18 12:52 D-Dimer 473.16 ng/mlDDU (0-234) H 07/16/18 15:23 Sodium 137 mmol/L (137-145) 07/17/18 05:58 Potassium 4.9 mmol/L (3.6-5.0) 07/17/18 05:58 Chloride 94.9 mmol/L (98-107) L 07/17/18 05:58 Carbon Dioxide 21 mmol/L (22-30) L 07/17/18 05:58 Anion Gap 26 mmol/L 07/17/18 05:58 BUN 94 mg/dL (9-20) H 07/17/18 05:58 Creatinine 9.5 mg/dL (0.8-1.5) H 07/17/18 05:58 Estimated GFR 7 ml/min 07/17/18 05:58 BUN/Creatinine Ratio 10 % 07/17/18 05:58 Glucose 281 mg/dL (75-100) H 07/17/18 05:58 POC Glucose 268 (70-105) H 07/17/18 08:29 Hemoglobin A1c 10.9 % (4-6) H 07/16/18 21:16 Calcium 8.6 mg/dL (8.4-10.2) 07/17/18 05:58 Total Bilirubin 0.40 mg/dL (0.1-1.2) 07/17/18 05:58 AST 33 units/L (5-40) 07/17/18 05:58 ALT 48 units/L (7-56) 07/17/18 05:58 Alkaline Phosphatase 257 units/L (35-129) H 07/17/18 05:58 Troponin T 1.080 ng/mL (0.00-0.029) H* 07/17/18 05:58 Total Protein 8.2 g/dL (6.3-8.2) 07/17/18 05:58 Albumin 3.2 g/dL (3.9-5) L 07/17/18 05:58 Albumin/Globulin Ratio 0.6 % 07/17/18 05:58 Triglycerides 36 mg/dL (2-149) 07/16/18 12:16 Cholesterol 91 mg/dL (50-199) 07/16/18 12:16 LDL Cholesterol Direct 50 mg/dL (50-130) 07/16/18 12:16 HDL Cholesterol 44 mg/dL (40-59) 07/16/18 12:16 Cholesterol/HDL Ratio 2.06 % 07/16/18 12:16 Active Medications - Current Medications Current Medications: Generic Name Dose Route Start Last Admin Trade Name Freq PRN Reason Stop Dose Admin Acetaminophen 650 mg 07/16/18 20:34 Tylenol PO Q4H PRN Pain MILD(1-3)/Fever >100.5/SANCHEZ Albumin Human 12.5 gm 07/17/18 11:23 Alburx 25% (Albumin) IV JOSE PRN Hypotension Aspirin 325 mg 07/18/18 10:00 Aspirin PO QDAY [facility] Atorvastatin Calcium 20 mg 07/16/18 22:00 07/16/18 22:51 Lipitor PO 20 mg QHS [facility] Administration Carvedilol 25 mg 07/16/18 22:00 07/17/18 10:00 Coreg PO Not Given BID [facility] Ergocalciferol 50,000 unit 07/17/18 10:00 07/17/18 10:00 Vitamin D2 PO Not Given [facility] Famotidine 10 mg 07/16/18 22:00 07/17/18 10:00 Pepcid PO Not Given BID [facility] Hydroxyzine HCl 25 mg 07/16/18 23:00 07/17/18 14:00 Atarax PO Not Given TID [facility] Sodium Chloride 100 mls @ 999 mls/hr 07/17/18 11:23 Nacl 0.9% IV JOSE PRN Hypotension Heparin Sodium/Sodium Chloride 25,000 unit in 500 mls @ 20 mls/hr 07/17/18 13:00 Heparin/ 0.45% Nacl-25,000 Unit/500 Ml IV TITRATE [facility] Protocol 1,000 UNITS/HR Insulin Human Lispro 0 unit 07/16/18 22:00 07/17/18 11:30 Humalog SUB-Q Not Given ACHS [facility] Protocol Losartan Potassium 100 mg 07/16/18 21:00 07/17/18 10:00 Cozaar PO Not Given QDAY [facility] Multivit/Ca Carb/B Cmplx/FA/Prenat 1 cap 07/16/18 21:00 07/17/18 10:00 Renal Caps PO Not Given DAILY [facility] Nifedipine 90 mg 07/16/18 22:00 07/16/18 22:47 Procardia Xl PO 90 mg QHS [facility] Administration Ondansetron HCl 4 mg 07/16/18 20:34 Zofran IV Q8H PRN Nausea And Vomiting Oxycodone/Acetaminophen 1 tab 07/16/18 20:34 07/16/18 23:40 Percocet 5/325 PO 1 tab Q6H PRN Administration Pain, Moderate (4-6) Sevelamer Carbonate 2,400 mg 07/17/18 08:00 07/17/18 12:00 Renvela PO Not Given TIDWM [facility] Sodium Chloride 10 ml 07/16/18 22:00 07/17/18 10:00 Sodium Chloride Flush Syringe 10 Ml IV Not Given BID [facility] Sodium Chloride 10 ml 07/16/18 20:58 Sodium Chloride Flush Syringe 10 Ml IV PRN PRN LINE FLUSH Topiramate 50 mg 07/16/18 22:00 07/17/18 10:00 Topamax PO Not Given BID [facility] Venlafaxine HCl 37.5 mg 07/16/18 21:00 07/17/18 10:00 Effexor PO Not Given QDAY [facility]
[2018-07-17] MEDS ORDERED: LANTUS SUB-Q ONE (16:00)
[2018-07-17] MEDS ORDERED: NACL 0.9 (PRIMING MACHINE ONLY DIALYSIS) MC ONE (16:31)
[2018-07-17] MEDS ORDERED: LANTUS SUB-Q SCH (22:00)
[2018-07-17 22:02] LABS: Hepatitis B Surface Antigen Non-Reactive (Negative); Hepatitis C Virus Antibody Non-Reactive (NonReactive)
[2018-07-17] MEDS: PROCARDIA XL PO SCH (22:45)
[2018-07-17] MEDS: PERCOCET 5/325 PO PRN (23:56)
[2018-07-18] MEDS ORDERED: HEPARIN 10,000 UNITS/10 ML IV ONE ×2 (03:00→03:10)
[2018-07-18] MEDS: HEPARIN/ 0.45% NACL-25,000 UNIT/500 ML 25,000 UNIT/500 ML BAG IV SCH (03:02)
[2018-07-18 06:14] LABS: Basophils # (Auto) 0.1 K/mm3 (0.0-0.1); Basophils % (Auto) 0.7 % (0.0-1.8); Eosinophils # (Auto) 0.3 K/mm3 (0.0-0.4); Eosinophils % (Auto) 4.2 % (0.0-4.3); Hematocrit 33.3 % (35.5-45.6); Hemoglobin 10.9 gm/dl (11.8-15.2); Lymphocytes # (Auto) 1.3 K/mm3 (1.2-5.4); Lymphocytes % (Auto) 18.2 % (13.4-35.0); Mean Corpuscular HGB Conc 33 % (32-34); Mean Corpuscular Volume 95 fl (84-94); Monocytes # (Auto) 0.7 K/mm3 (0.0-0.8); Monocytes % (Auto) 9.6 % (0.0-7.3); Platelet Count 120 K/mm3 (140-440); Red Cell Distribution Width 16.7 % (13.2-15.2)
[2018-07-18 06:43] LABS: Albumin 2.9 g/dL (3.9-5); Calcium 8.3 mg/dL (8.4-10.2)
[2018-07-18] MEDS: HumaLOG SUB-Q SCH ×3 (07:30→22:55)
[2018-07-18] MEDS: ASPIRIN PO SCH (09:01)
[2018-07-18] MEDS: COREG PO SCH ×2 (09:01→22:44)
[2018-07-18] MEDS: PEPCID PO SCH ×2 (09:01→22:43)
[2018-07-18] MEDS: RENVELA PO SCH ×2 (09:01→17:52)
[2018-07-18] MEDS: Renal Caps PO SCH (09:02)
[2018-07-18] MEDS: COZAAR PO SCH (09:02)
[2018-07-18] MEDS: EFFEXOR PO SCH (09:02)
[2018-07-18] MEDS: TOPAMAX PO SCH ×2 (09:02→22:45)
[2018-07-18] MEDS: ATARAX PO SCH ×3 (09:02→20:16)
--- NOTE | 2018-07-18 12:22 | Consultation ---
History of Present Illness Consult date: 07/18/18 Reason for consult: other (Bilateral foot ulcerations) - History of present illness History of present illness: 47 yo blind diabetic male with bilateral foot ulcerations. He is ambulatory with assistance. Past History Past Medical History: diabetes, dialysis, hypertension, PVD, renal failure Past Surgical History: Other (Left AVF placement) Social history: no significant social history Family history: no significant family history Medications and Allergies Allergies Allergy/AdvReac Type Severity Reaction Status Date / Time No Known Allergies Allergy Unverified 07/16/18 16:37 Home Medications Medication Instructions Recorded Confirmed Last Taken Type AtorvaSTATin [Lipitor] 20 mg PO QHS 07/16/18 07/16/18 Unknown History Carvedilol [Coreg] 25 mg PO BID 07/16/18 07/16/18 Unknown History Ergocalciferol (Vitamin D2) 50,000 unit PO QWEEK 07/16/18 07/16/18 Unknown History [Drisdol] Gabapentin [Gralise] 300 mg PO QHS 07/16/18 07/16/18 Unknown History Losartan [Cozaar] 100 mg PO QDAY 07/16/18 07/16/18 Unknown History NIFEdipine [Nifedipine ER] 90 mg PO QHS 07/16/18 07/16/18 Unknown History Sevelamer Carbonate [Renvela] 2,400 mg PO TIDWM 07/16/18 07/16/18 Unknown History Topiramate [Topamax] 50 mg PO BID 07/16/18 07/16/18 Unknown History Venlafaxine [Effexor 37.5mg tab] 37.5 mg PO QDAY 07/16/18 07/16/18 Unknown History Vit B Comp C/Folic Acid/Vit D3 1 each PO DAILY 07/16/18 07/16/18 Unknown History [Dialyvite 800 Plus D Wafer] hydrOXYzine HCl [Hydroxyzine HCl] 25 mg PO TID 07/16/18 07/16/18 Unknown History Active Meds: Active Medications Acetaminophen (Tylenol) 650 mg PO Q4H PRN PRN Reason: Pain MILD(1-3)/Fever >100.5/SANCHEZ Albumin Human (Alburx 25% (Albumin)) 12.5 gm IV JOSE PRN PRN Reason: Hypotension Aspirin (Aspirin) 325 mg PO QDAY [facility]RISTINE Last Admin: 07/18/18 09:01 Dose: 325 mg Documented by: Atorvastatin Calcium (Lipitor) 20 mg PO QHS [facility] Last Admin: 07/17/18 22:45 Dose: 20 mg Documented by: Carvedilol (Coreg) 25 mg PO BID [facility] Last Admin: 07/18/18 09:01 Dose: 25 mg Documented by: Ergocalciferol (Vitamin D2) 50,000 unit PO We [facility] Last Admin: 07/17/18 10:00 Dose: Not Given Documented by: Famotidine (Pepcid) 10 mg PO BID [facility] Last Admin: 07/18/18 09:01 Dose: 10 mg Documented by: Hydroxyzine HCl (Atarax) 25 mg PO TID [facility] Last Admin: 07/18/18 09:02 Dose: 25 mg Documented by: Sodium Chloride (Nacl 0.9%) 100 mls @ 999 mls/hr IV JOSE PRN PRN Reason: Hypotension Heparin Sodium/Sodium Chloride (Heparin/ 0.45% Nacl-25,000 Unit/500 Ml) 25,000 unit in 500 mls @ 20 mls/hr IV TITRATE [facility]; Protocol Last Titration: 07/18/18 11:33 Dose: 1,100 units/hr, 22 mls/hr Documented by: Insulin Glargine (Lantus) 20 units SUB-Q QHS [facility] Last Admin: 07/17/18 22:45 Dose: 20 units Documented by: Insulin Human Lispro (Humalog) 0 unit SUB-Q ACHS [facility]; Protocol Last Admin: 07/18/18 07:30 Dose: Not Given Documented by: Losartan Potassium (Cozaar) 100 mg PO QDAY [facility] Last Admin: 07/18/18 09:02 Dose: 100 mg Documented by: Multivit/Ca Carb/B Cmplx/FA/Prenat (Renal Caps) 1 cap PO DAILY [facility] Last Admin: 07/18/18 09:02 Dose: 1 cap Documented by: Nifedipine (Procardia Xl) 90 mg PO QHS [facility] Last Admin: 07/17/18 22:45 Dose: 90 mg Documented by: Ondansetron HCl (Zofran) 4 mg IV Q8H PRN PRN Reason: Nausea And Vomiting Oxycodone/Acetaminophen (Percocet 5/325) 1 tab PO Q6H PRN PRN Reason: Pain, Moderate (4-6) Last Admin: 07/17/18 23:56 Dose: 1 tab Documented by: Sevelamer Carbonate (Renvela) 2,400 mg PO TIDWM [facility] Last Admin: 07/18/18 09:01 Dose: 2,400 mg Documented by: Sodium Chloride (Sodium Chloride Flush Syringe 10 Ml) 10 ml IV BID [facility] Last Admin: 07/17/18 22:50 Dose: 10 ml Documented by: Sodium Chloride (Sodium Chloride Flush Syringe 10 Ml) 10 ml IV PRN PRN PRN Reason: LINE FLUSH Topiramate (Topamax) 50 mg PO BID [facility] Last Admin: 07/18/18 09:02 Dose: 50 mg Documented by: Venlafaxine HCl (Effexor) 37.5 mg PO QDAY [facility] Last Admin: 07/18/18 09:02 Dose: 37.5 mg Documented by: Review of Systems All systems: negative (none) Exam Vital Signs Temp Pulse Resp BP Pulse Ox 97.7 F 60 18 111/69 99 07/16/18 11:49 07/16/18 11:49 07/16/18 11:49 07/16/18 11:49 07/16/18 11:49 - General physical appearance Positive: well developed, well nourished, no distress - Eyes Positive: PERRL, normal occular movement - ENT Positive: normal pinna, normal nares, normal mucosa, no hearing loss, no [place] estion - Neck Positive: no masses, no bruits, trachea midline, no venous distension - Respiratory Positive: normal expansion, normal respiratory effort, clear to auscultation - Cardiovascular Rhythm: regular Heart Sounds: Present: S1 & S2. Absent: rub, click - Extremities Extremities: no ischemia, pulses symmetrical, No edema - Breasts Breasts: deferred - Abdomen Abdomen: Present: soft, bowel sounds normal. Absent: tender, distended Hernia: none - Genitourinary Male Genitourinary: deferred - Integumentary other (There is a 15 X 3 X 0.3 cm left anterior leg ulceration. The left medial foot and great toe is denuded as is the right metatarsal area & lateral foot. DP are non-palpable bilaterally. The right great toe is surgically absent. ) - Neurologic Neurologic: alert and oriented to time, place and person, motor strength and sensation are grossly intact - Musculoskeletal normal gait, normal posture - Psychiatric Psychiatric: appropriate mood/affect, intact judgment & insight Results - Labs 07/18/18 04:55 07/18/18 04:55 Abnormal lab results 07/17/18 07/17/18 07/17/18 Range/Units 12:52 12:52 18:49 RBC (3.65-5.03) M/mm3 Hgb 11.4 L (11.8-15.2) gm/dl Hct 34.4 L (35.5-45.6) % MCV (84-94) fl RDW (13.2-15.2) % Plt Count 122 L (140-440) K/mm3 [place] % (Auto) (0.0-7.3) % PT 15.9 H (12.2-14.9) Sec. INR 1.19 H (0.87-1.13) Heparin Anti-Xa Level (0.3-0.7) U.I./ml Chloride (98-107) mmol/L BUN (9-20) mg/dL Creatinine (0.8-1.5) mg/dL Glucose (75-100) mg/dL POC Glucose 270 H (70-105) Calcium (8.4-10.2) mg/dL Phosphorus (2.5-4.5) mg/dL Alkaline Phosphatase (35-129) units/L Albumin (3.9-5) g/dL 07/17/18 07/18/18 07/18/18 Range/Units 21:09 04:55 04:55 RBC 3.50 L (3.65-5.03) M/mm3 Hgb 10.9 L (11.8-15.2) gm/dl Hct 33.3 L (35.5-45.6) % MCV 95 H (84-94) fl RDW 16.7 H (13.2-15.2) % Plt Count 120 L (140-440) K/mm3 [place] % (Auto) 9.6 H (0.0-7.3) % PT (12.2-14.9) Sec. INR (0.87-1.13) Heparin Anti-Xa Level (0.3-0.7) U.I./ml Chloride 95.6 L (98-107) mmol/L BUN 62 H (9-20) mg/dL Creatinine 7.3 H (0.8-1.5) mg/dL Glucose 123 H (75-100) mg/dL POC Glucose 315 H (70-105) Calcium 8.3 L (8.4-10.2) mg/dL Phosphorus 6.20 H (2.5-4.5) mg/dL Alkaline Phosphatase 275 H (35-129) units/L Albumin 2.9 L (3.9-5) g/dL 07/18/18 Range/Units 09:24 RBC (3.65-5.03) M/mm3 Hgb (11.8-15.2) gm/dl Hct (35.5-45.6) % MCV (84-94) fl RDW (13.2-15.2) % Plt Count (140-440) K/mm3 [place] % (Auto) (0.0-7.3) % PT (12.2-14.9) Sec. INR (0.87-1.13) Heparin Anti-Xa Level 0.15 L (0.3-0.7) U.I./ml Chloride (98-107) mmol/L BUN (9-20) mg/dL Creatinine (0.8-1.5) mg/dL Glucose (75-100) mg/dL POC Glucose (70-105) Calcium (8.4-10.2) mg/dL Phosphorus (2.5-4.5) mg/dL Alkaline Phosphatase (35-129) units/L Albumin (3.9-5) g/dL Diabetes panel 07/18/18 Range/Units 04:55 Sodium 138 (137-145) mmol/L Potassium 4.3 (3.6-5.0) mmol/L Chloride 95.6 L (98-107) mmol/L Carbon Dioxide 22 (22-30) mmol/L BUN 62 H (9-20) mg/dL Creatinine 7.3 H (0.8-1.5) mg/dL Glucose 123 H (75-100) mg/dL Calcium 8.3 L (8.4-10.2) mg/dL AST 34 (5-40) units/L ALT 48 (7-56) units/L Alkaline Phosphatase 275 H (35-129) units/L Total Protein 7.8 (6.3-8.2) g/dL Albumin 2.9 L (3.9-5) g/dL Calcium panel 07/18/18 Range/Units 04:55 Calcium 8.3 L (8.4-10.2) mg/dL Phosphorus 6.20 H (2.5-4.5) mg/dL Albumin 2.9 L (3.9-5) g/dL Pituitary panel 07/18/18 Range/Units 04:55 Sodium 138 (137-145) mmol/L Potassium 4.3 (3.6-5.0) mmol/L Chloride 95.6 L (98-107) mmol/L Carbon Dioxide 22 (22-30) mmol/L BUN 62 H (9-20) mg/dL Creatinine 7.3 H (0.8-1.5) mg/dL Glucose 123 H (75-100) mg/dL Calcium 8.3 L (8.4-10.2) mg/dL Adrenal panel 07/18/18 Range/Units 04:55 Sodium 138 (137-145) mmol/L Potassium 4.3 (3.6-5.0) mmol/L Chloride 95.6 L (98-107) mmol/L Carbon Dioxide 22 (22-30) mmol/L BUN 62 H (9-20) mg/dL Creatinine 7.3 H (0.8-1.5) mg/dL Glucose 123 H (75-100) mg/dL Calcium 8.3 L (8.4-10.2) mg/dL Total Bilirubin 0.50 (0.1-1.2) mg/dL AST 34 (5-40) units/L ALT 48 (7-56) units/L Alkaline Phosphatase 275 H (35-129) units/L Total Protein 7.8 (6.3-8.2) g/dL Albumin 2.9 L (3.9-5) g/dL - Imaging Additional studies: 1) A1c on 07/16/18 was 10.9. 2) Arterial dopplers were performed on 07/16/18. Results are still pending. Assessment and Plan - Patient Problems (1) PVD (peripheral vascular disease) Current Visit: Yes Status: Chronic Plan to address problem: 1) F/u arterial dopplers 2) Strict control of DM 3) F[facility]u in [facility] 4) Wound care per the Wound Care nurse.
--- NOTE | 2018-07-18 12:53 | Progress Note ---
Assessment and Plan End Stage Renal Disease: -S/P Hemodialysis yesterday for UF and clearance -Has left AVF that is functional -Fluid restriction of 1 liter per day -Renal diet -Obtain daily weights -Monitor I/O's -Assess dialysis needs daily Slurred Speech: -Head CT normal -As per Attending PVD: -Duplex scan- pending Hypertension: -On Coreg and Losartan -Adjust regimen as needed Diabetes Mellitus: -On insulin as per primary Subjective Date of service: 07/18/18 Principal diagnosis: ESRD Interval history: Seen sitting up at edge of bed. Awake and alert. No family at bedside. Objective - Vital Signs Vital signs: Vital Signs - 12hr 07/18/18 07/18/18 07/18/18 03:13 04:00 04:31 Temperature 98.2 F Pulse Rate 64 64 65 Respiratory 16 16 Rate Blood Pressure 150/89 145/86 O2 Sat by Pulse 93 90 Oximetry 07/18/18 07/18/18 07/18/18 08:18 08:22 10:00 Temperature 97.9 F 97.9 F Pulse Rate 63 Respiratory 18 20 Rate Blood Pressure 141/84 O2 Sat by Pulse 94 94 Oximetry - General Appearance General appearance: well-developed, appears stated age, fatigue EENT: ATNC, PERRL, hearing intact, vision intact Neck: no JVD, supple Respiratory: Present: Decreased Breath Sounds Cardiology: regular, S1S2 Gastrointestinal: normoactive bowel sounds Integumentary: warm and dry, chronic venous stasis Neurologic: alert and oriented x3 Musculoskeletal: joint swelling, other (has wound dressing to both feet, positive edema) Psychiatric: cooperative - Lab 07/18/18 04:55 07/18/18 04:55 Most recent lab results Calcium 8.3 mg/dL (8.4-10.2) L 07/18/18 04:55 Phosphorus 6.20 mg/dL (2.5-4.5) H 07/18/18 04:55 Medications & Allergies - Medications Allergies/Adverse Reactions: Allergies No Known Allergies Allergy (Unverified 07/16/18 16:37) Home Medications: Home Medications Medication Instructions Recorded Confirmed Last Taken Type AtorvaSTATin [Lipitor] 20 mg PO QHS 07/16/18 07/16/18 Unknown History Carvedilol [Coreg] 25 mg PO BID 07/16/18 07/16/18 Unknown History Ergocalciferol (Vitamin D2) 50,000 unit PO QWEEK 07/16/18 07/16/18 Unknown History [Drisdol] Gabapentin [Gralise] 300 mg PO QHS 07/16/18 07/16/18 Unknown History Losartan [Cozaar] 100 mg PO QDAY 07/16/18 07/16/18 Unknown History NIFEdipine [Nifedipine ER] 90 mg PO QHS 07/16/18 07/16/18 Unknown History Sevelamer Carbonate [Renvela] 2,400 mg PO TIDWM 07/16/18 07/16/18 Unknown History Topiramate [Topamax] 50 mg PO BID 07/16/18 07/16/18 Unknown History Venlafaxine [Effexor 37.5mg tab] 37.5 mg PO QDAY 07/16/18 07/16/18 Unknown History Vit B Comp C/Folic Acid/Vit D3 1 each PO DAILY 07/16/18 07/16/18 Unknown History [Dialyvite 800 Plus D Wafer] hydrOXYzine HCl [Hydroxyzine HCl] 25 mg PO TID 07/16/18 07/16/18 Unknown History Active Medications: Generic Name Dose Route Start Last Admin Trade Name Freq PRN Reason Stop Dose Admin Acetaminophen 650 mg 07/16/18 20:34 Tylenol PO Q4H PRN Pain MILD(1-3)/Fever >100.5/SANCHEZ Albumin Human 12.5 gm 07/17/18 11:23 Alburx 25% (Albumin) IV JOSE PRN Hypotension Aspirin 325 mg 07/18/18 10:00 07/18/18 09:01 Aspirin PO 325 mg QDAY CHRISTINE Administration Atorvastatin Calcium 20 mg 07/16/18 22:00 07/17/18 22:45 Lipitor PO 20 mg QHS CHRISTINE Administration Carvedilol 25 mg 07/16/18 22:00 07/18/18 09:01 Coreg PO 25 mg BID CHRISTINE Administration Ergocalciferol 50,000 unit 07/17/18 10:00 07/17/18 10:00 Vitamin D2 PO Not Given We [facility] Famotidine 10 mg 07/16/18 22:00 07/18/18 09:01 Pepcid PO 10 mg BID CHRISTINE Administration Hydroxyzine HCl 25 mg 07/16/18 23:00 07/18/18 09:02 Atarax PO 25 mg TID CHRISTINE Administration Sodium Chloride 100 mls @ 999 mls/hr 07/17/18 11:23 Nacl 0.9% IV JOSE PRN Hypotension Heparin Sodium/Sodium Chloride 25,000 unit in 500 mls @ 20 mls/hr 07/17/18 13:00 07/18/18 11:33 Heparin/ 0.45% Nacl-25,000 Unit/500 Ml IV 1,100 units/hr TITRATE CHRISTINE 22 mls/hr Titration Protocol 1,000 UNITS/HR Insulin Glargine 20 units 07/17/18 22:00 07/17/18 22:45 Lantus SUB-Q 20 units QHS [facility]STINE Administration Insulin Human Lispro 0 unit 07/16/18 22:00 07/18/18 07:30 Humalog SUB-Q Not Given ACHS [facility] Protocol Losartan Potassium 100 mg 07/16/18 21:00 07/18/18 09:02 Cozaar PO 100 mg QDAY [facility]STINE Administration Multivit/Ca Carb/B Cmplx/FA/Prenat 1 cap 07/16/18 21:00 07/18/18 09:02 Renal Caps PO 1 cap DAILY [facility] Administration Nifedipine 90 mg 07/16/18 22:00 07/17/18 22:45 Procardia Xl PO 90 mg QHS [facility] Administration Ondansetron HCl 4 mg 07/16/18 20:34 Zofran IV Q8H PRN Nausea And Vomiting Oxycodone/Acetaminophen 1 tab 07/16/18 20:34 07/17/18 23:56 Percocet 5/325 PO 1 tab Q6H PRN Administration Pain, Moderate (4-6) Sevelamer Carbonate 2,400 mg 07/17/18 08:00 07/18/18 09:01 Renvela PO 2,400 mg TIDWM [facility]STINE Administration Sodium Chloride 10 ml 07/16/18 22:00 07/17/18 22:50 Sodium Chloride Flush Syringe 10 Ml IV 10 ml BID [facility]STINE Administration Sodium Chloride 10 ml 07/16/18 20:58 Sodium Chloride Flush Syringe 10 Ml IV PRN PRN LINE FLUSH Topiramate 50 mg 07/16/18 22:00 07/18/18 09:02 Topamax PO 50 mg BID [facility]INE Administration Venlafaxine HCl 37.5 mg 07/16/18 21:00 07/18/18 09:02 Effexor PO 37.5 mg QDAY CHRISTINE Administration
--- NOTE | 2018-07-18 14:19 | Progress Note ---
Assessment and Plan Cont heparin gtt and ASA in setting of significant elevated cardiac enzymes, although suspect NSTEMI type 2. Pt reports resolution of chest pain, ECG with no acute ischemic changes. Await echo. Pt with elevated DDimer - s/p V/Q scan yesterday which was low prob for PE. Pt for stress test on Sunday, 07/19. NPO after MN. The patient has been seen in conjunction with Dr. Caren Asif who agrees with the assessment and plan of care. - Patient Problems (1) Chest pain Current Visit: Yes Status: Acute Qualifiers: Chest pain type: unspecified Qualified Code(s): R07.9 - Chest pain, unspecified (2) NSTEMI (non-ST elevated myocardial infarction) Current Visit: Yes Status: Acute (3) Elevated d-dimer Current Visit: Yes Status: Acute (4) ESRD needing dialysis Current Visit: Yes Status: Chronic (5) Hypertension Current Visit: Yes Status: Chronic Qualifiers: Hypertension type: essential hypertension Qualified Code(s): I10 - Essential (primary) hypertension (6) Type 2 diabetes mellitus Current Visit: Yes Status: Chronic Qualifiers: Diabetes mellitus half-way insulin use: without intermediate accountant use (7) PVD (peripheral vascular disease) Current Visit: Yes Status: Chronic Subjective Date of service: 07/18/18 Principal diagnosis: ESRD Interval history: pt sitting up at bedside, states he is feeling better today. in SR/SB on telemetry. Objective Last Vital Signs Temp 97.9 F 07/18/18 08:22 Pulse 63 07/18/18 08:18 Resp 20 07/18/18 08:22 BP 141/84 07/18/18 08:18 Pulse Ox 94 07/18/18 10:00 - Physical Examination General: No Apparent Distress HEENT: Positive: Normocephaly, Mucus Membranes Moist Neck: Positive: neck supple, trachea midline Cardiac: Positive: Reg Rate and Rhythm, S1/S2 Lungs: Positive: Decreased Breath Sounds Neuro: Positive: Grossly Intact Abdomen: Positive: Soft. Negative: Tender Skin: Positive: Other (bilateral foot wounds in dressings ) Extremities: Present: Other (bilateral foot wounds covered with dressings ) - Labs and Meds Cardiac Enzymes 07/18/18 Range/Units 04:55 AST 34 (5-40) units/L CBC 07/18/18 Range/Units 04:55 WBC 7.2 (4.5-11.0) K/mm3 RBC 3.50 L (3.65-5.03) M/mm3 Hgb 10.9 L (11.8-15.2) gm/dl Hct 33.3 L (35.5-45.6) % Plt Count 120 L (140-440) K/mm3 Lymph # 1.3 (1.2-5.4) K/mm3 [place] # 0.7 (0.0-0.8) K/mm3 Eos # 0.3 (0.0-0.4) K/mm3 Baso # 0.1 (0.0-0.1) K/mm3 Comprehensive Metabolic Panel 07/18/18 Range/Units 04:55 Sodium 138 (137-145) mmol/L Potassium 4.3 (3.6-5.0) mmol/L Chloride 95.6 L (98-107) mmol/L Carbon Dioxide 22 (22-30) mmol/L BUN 62 H (9-20) mg/dL Creatinine 7.3 H (0.8-1.5) mg/dL Glucose 123 H (75-100) mg/dL Calcium 8.3 L (8.4-10.2) mg/dL AST 34 (5-40) units/L ALT 48 (7-56) units/L Alkaline Phosphatase 275 H (35-129) units/L Total Protein 7.8 (6.3-8.2) g/dL Albumin 2.9 L (3.9-5) g/dL - Imaging and Cardiology EKG: report reviewed, image reviewed Echo: pending - Telemetry EKG Rhythm: Sinus Rhythm - EKG Sinus rhythms and dysrhythmias: sinus rhythm Chamber hypertrophy or enlargement: left ventricular hypertro Myocardial infarction: inferior RI (old age inde
--- NOTE | 2018-07-18 15:29 | Progress Note ---
Assessment and Plan Assessment and plan: (1) Chest pain, NSTEMI - On heparin drip - Troponins were negative - We'll do stress test on Sunday because patient has VQ scan yesterday (2) ESRD needing dialysis - Nephrology consulted and will continue with dialysis (3) Type 2 diabetes mellitus - Poorly controlled - Hemoglobin A1c is 10.5 - Sliding-scale insulin, Lantus 25 units daily at bedtime and Humalog 10 units TID - Accu-Chek, ADA diet, monitoring and adjust as needed (4) Slurred speech - Patient said he went [place] when he has slurred speech and told has TIA but no workup was done - CT head was done and negative (5) Hypertension - Continue antihypertensives - Controlled (6) Hyperlipidemia Continue statins (7) left foot and leg ulcer - Evaluated by Dr Toney and recommend wound care - Will follow the Arterial doppler and was done (8) Peripheral neuropathy Continue gabapentin (9) Depression Continue Effexor 37.5 mg daily (10) Vitamin D deficiency Continue vitamin D per schedule (11) DVT prophylaxis On heparin and GI prophylaxis History Interval history: Patient was seen and evaluated this morning, patient is legally blind. Alert and oriented. Noticed leg swelling and ulcer 3 days ago. Hospitalist Physical - Physical exam Narrative exam: Not in cardiopulmonary distress. The patient appeared well nourished and normally developed. Vital signs as documented. Head exam is unremarkable. No scleral icterus . Neck is without jugular venous distension, thyromegaly, or carotid bruits. Lungs are clear to auscultation. Cardiac exam reveals regular rate and Rhythm. First and second heart sounds normal. No murmurs, rubs or gallops. Abdominal exam reveals normal bowel sounds, no masses, no organomegaly and no aortic enlargement. Extremities bliateral cronic LE swelling and ulcer on the left leg and foot. 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 No focal weakness. - Constitutional Vitals: Temp Pulse Resp BP Pulse Ox 97.9 F 63 20 141/84 94 07/18/18 08:22 07/18/18 08:18 07/18/18 08:22 07/18/18 08:18 07/18/18 10:00 General appearance: Present: no acute distress Results - Labs CBC & Chem 7: 07/18/18 04:55 07/18/18 04:55 Labs: Laboratory Last Values WBC 7.2 K/mm3 (4.5-11.0) 07/18/18 04:55 RBC 3.50 M/mm3 (3.65-5.03) L 07/18/18 04:55 Hgb 10.9 gm/dl (11.8-15.2) L 07/18/18 04:55 Hct 33.3 % (35.5-45.6) L 07/18/18 04:55 MCV 95 fl (84-94) H 07/18/18 04:55 MCH 31 pg (28-32) 07/18/18 04:55 MCHC 33 % (32-34) 07/18/18 04:55 RDW 16.7 % (13.2-15.2) H 07/18/18 04:55 Plt Count 120 K/mm3 (140-440) L 07/18/18 04:55 Lymph % (Auto) 18.2 % (13.4-35.0) 07/18/18 04:55 [place] % (Auto) 9.6 % (0.0-7.3) H 07/18/18 04:55 Eos % (Auto) 4.2 % (0.0-4.3) 07/18/18 04:55 Baso % (Auto) 0.7 % (0.0-1.8) 07/18/18 04:55 Lymph # 1.3 K/mm3 (1.2-5.4) 07/18/18 04:55 [place] # 0.7 K/mm3 (0.0-0.8) 07/18/18 04:55 Eos # 0.3 K/mm3 (0.0-0.4) 07/18/18 04:55 Baso # 0.1 K/mm3 (0.0-0.1) 07/18/18 04:55 Seg Neutrophils % 67.3 % (40.0-70.0) 07/18/18 04:55 Seg Neutrophils # 4.8 K/mm3 (1.8-7.7) 07/18/18 04:55 PT 15.9 Sec. (12.2-14.9) H 07/17/18 12:52 INR 1.19 (0.87-1.13) H 07/17/18 12:52 APTT 32.6 Sec. (24.2-36.6) 07/17/18 12:52 D-Dimer 473.16 ng/mlDDU (0-234) H 07/16/18 15:23 Heparin Anti-Xa Level 0.15 U.I./ml (0.3-0.7) L 07/18/18 09:24 Sodium 138 mmol/L (137-145) 07/18/18 04:55 Potassium 4.3 mmol/L (3.6-5.0) 07/18/18 04:55 Chloride 95.6 mmol/L (98-107) L 07/18/18 04:55 Carbon Dioxide 22 mmol/L (22-30) 07/18/18 04:55 Anion Gap 25 mmol/L 07/18/18 04:55 BUN 62 mg/dL (9-20) H 07/18/18 04:55 Creatinine 7.3 mg/dL (0.8-1.5) H 07/18/18 04:55 Estimated GFR 10 ml/min 07/18/18 04:55 BUN/Creatinine Ratio 8 % 07/18/18 04:55 Glucose 123 mg/dL (75-100) H 07/18/18 04:55 POC Glucose 315 (70-105) H 07/17/18 21:09 Hemoglobin A1c 10.9 % (4-6) H 07/16/18 21:16 Calcium 8.3 mg/dL (8.4-10.2) L 07/18/18 04:55 Phosphorus 6.20 mg/dL (2.5-4.5) H 07/18/18 04:55 Total Bilirubin 0.50 mg/dL (0.1-1.2) 07/18/18 04:55 AST 34 units/L (5-40) 07/18/18 04:55 ALT 48 units/L (7-56) 07/18/18 04:55 Alkaline Phosphatase 275 units/L (35-129) H 07/18/18 04:55 Troponin T 1.080 ng/mL (0.00-0.029) H* 07/17/18 05:58 Total Protein 7.8 g/dL (6.3-8.2) 07/18/18 04:55 Albumin 2.9 g/dL (3.9-5) L 07/18/18 04:55 Albumin/Globulin Ratio 0.6 % 07/18/18 04:55 Triglycerides 36 mg/dL (2-149) 07/16/18 12:16 Cholesterol 91 mg/dL (50-199) 07/16/18 12:16 LDL Cholesterol Direct 50 mg/dL (50-130) 07/16/18 12:16 HDL Cholesterol 44 mg/dL (40-59) 07/16/18 12:16 Cholesterol/HDL Ratio 2.06 % 07/16/18 12:16 Hepatitis A IgM Ab Non-reactive (NonReactive) 07/17/18 20:48 Hep Bs Antigen Non-reactive (Negative) 07/17/18 20:48 Hep B Core IgM Ab Non-reactive (NonReactive) 07/17/18 20:48 Hepatitis C Antibody Non-reactive (NonReactive) 07/17/18 20:48 Active Medications - Current Medications Current Medications: Generic Name Dose Route Start Last Admin Trade Name Freq PRN Reason Stop Dose Admin Acetaminophen 650 mg 07/16/18 20:34 Tylenol PO Q4H PRN Pain MILD(1-3)/Fever >100.5/SANCHEZ Albumin Human 12.5 gm 07/17/18 11:23 Alburx 25% (Albumin) IV JOSE PRN Hypotension Aspirin 325 mg 07/18/18 10:00 07/18/18 09:01 Aspirin PO 325 mg QDAY CHRISTINE Administration Atorvastatin Calcium 20 mg 07/16/18 22:00 07/17/18 22:45 Lipitor PO 20 mg QHS CHRISTINE Administration Carvedilol 25 mg 07/16/18 22:00 07/18/18 09:01 Coreg PO 25 mg BID CHRISTINE Administration Ergocalciferol 50,000 unit 07/17/18 10:00 07/17/18 10:00 Vitamin D2 PO Not Given We [facility] Famotidine 10 mg 07/16/18 22:00 07/18/18 09:01 Pepcid PO 10 mg BID CHRISTINE Administration Hydroxyzine HCl 25 mg 07/16/18 23:00 07/18/18 09:02 Atarax PO 25 mg TID CHRISTINE Administration Sodium Chloride 100 mls @ 999 mls/hr 07/17/18 11:23 Nacl 0.9% IV JOSE PRN Hypotension Heparin Sodium/Sodium Chloride 25,000 unit in 500 mls @ 20 mls/hr 07/17/18 13:00 07/18/18 11:33 Heparin/ 0.45% Nacl-25,000 Unit/500 Ml IV 1,100 units/hr TITRATE [facility] 22 mls/hr Titration Protocol 1,000 UNITS/HR Insulin Glargine 20 units 07/17/18 22:00 07/17/18 22:45 Lantus SUB-Q 20 units QHS CHRISTINE Administration Insulin Human Lispro 0 unit 07/16/18 22:00 07/18/18 07:30 Humalog SUB-Q Not Given ACHS [facility] Protocol Losartan Potassium 100 mg 07/16/18 21:00 07/18/18 09:02 Cozaar PO 100 mg QDAY CHRISTINE Administration Multivit/Ca Carb/B Cmplx/FA/Prenat 1 cap 07/16/18 21:00 07/18/18 09:02 Renal Caps PO 1 cap DAILY CHRISTINE Administration Nifedipine 90 mg 07/16/18 22:00 07/17/18 22:45 Procardia Xl PO 90 mg QHS CHRISTINE Administration Ondansetron HCl 4 mg 07/16/18 20:34 Zofran IV Q8H PRN Nausea And Vomiting Oxycodone/Acetaminophen 1 tab 07/16/18 20:34 07/17/18 23:56 Percocet 5/325 PO 1 tab Q6H PRN Administration Pain, Moderate (4-6) Sevelamer Carbonate 2,400 mg 07/17/18 08:00 07/18/18 09:01 Renvela PO 2,400 mg TIDWM CHRISTINE Administration Sodium Chloride 10 ml 07/16/18 22:00 07/17/18 22:50 Sodium Chloride Flush Syringe 10 Ml IV 10 ml BID CHRISTINE Administration Sodium Chloride 10 ml 07/16/18 20:58 Sodium Chloride Flush Syringe 10 Ml IV PRN PRN LINE FLUSH Topiramate 50 mg 07/16/18 22:00 07/18/18 09:02 Topamax PO 50 mg BID CHRISTINE Administration Venlafaxine HCl 37.5 mg 07/16/18 21:00 07/18/18 09:02 Effexor PO 37.5 mg QDAY CHRISTINE Administration
--- NOTE | 2018-07-18 15:44 | Vascular Lab Report ---
PROCEDURE: VL ARTERIAL DUPLEX LE BILAT TECHNIQUE: Fernández scale, color and pulsed Doppler ultrasound with color flow and spectral analysis eval uation of bilateral lower extremities arteries were performed. HISTORY: peripheral arterial disease and ulcer left foot COMPARISONS: None currently available. FINDINGS: RIGHT EXTREMITY: proximal FIREWALL SECURITY ENGINEER, distal FIREWALL SECURITY ENGINEER, proximal SFA, DFA, mid SFA, distal SFA, popliteal, SPORTS SPECIALIST, and SREEKANTH velocities in cm/sec: 80, 44, 58, 49, 53, 60, 0, 35, and 0. Little to no flow in the popliteal and anterior tibi al artery. Biphasic flow in the posterior tibial artery and the remainder of the right lower extremit y. Prominent right groin lymph node measures 3.0 x 1.7 cm. LEFT EXTREMITY: proximal FIREWALL SECURITY ENGINEER, distal FIREWALL SECURITY ENGINEER, proximal SFA, DFA, mid SFA, distal SFA, popliteal, SPORTS SPECIALIST, and SREEKANTH velocities in cm/sec: 82, 70, 65, 50, 57, 54, 0, 0, and 0. Monophasic flow in the mid and distal SFA. Little to no flow in the popliteal, posterior tibial, and anterior tibial arteries. Prominent left groin lymph node measures 3.9 x 1.5 cm. IMPRESSION: * Prominent bilateral groin lymph nodes. * Near occlusion or occlusion suspected in the right popliteal and anterior tibial arteries and in t he left popliteal, posterior tibial, and anterior tibial arteries. This document is electronically signed by Joseluis Wilson MD., July 18 2018 03:42:50 PM ET
[2018-07-18] MEDS: SODIUM CHLORIDE FLUSH SYRINGE 10 ML IV SCH ×2 (17:52→22:45)
[2018-07-18] MEDS: PERCOCET 5/325 PO PRN (20:16)
[2018-07-18] MEDS: PROCARDIA XL PO SCH (22:43)
[2018-07-18] MEDS: LANTUS SUB-Q SCH (22:44)
[2018-07-19] MEDS: HEPARIN/ 0.45% NACL-25,000 UNIT/500 ML 25,000 UNIT/500 ML BAG IV SCH (02:00)
[2018-07-19 06:30] LABS: Hematocrit 32.8 % (35.5-45.6); Hemoglobin 10.7 gm/dl (11.8-15.2)
[2018-07-19] MEDS: HumaLOG SUB-Q SCH ×4 (07:30→21:56)
[2018-07-19] MEDS: RENVELA PO SCH ×3 (08:00→18:25)
[2018-07-19] MEDS: ATARAX PO SCH ×3 (09:00→22:22)
[2018-07-19] MEDS ORDERED: LEXISCAN IV ONE ×2 (09:17→09:18)
[2018-07-19] MEDS: COREG PO SCH ×2 (10:00→22:13)
--- NOTE | 2018-07-19 10:04 | Progress Note ---
Assessment and Plan End Stage Renal Disease: -HD today for clearance and volume removal -Has left AVF that is functional -Fluid restriction of 1 liter per day -Renal diet -Obtain daily weights -Monitor I/O's -Assess dialysis needs daily Slurred Speech: -Head CT normal -As per Attending PVD: -Duplex scan- pending Hypertension: -On Coreg and Losartan -Adjust regimen as needed Diabetes Mellitus: -On insulin as per primary Subjective Date of service: 07/19/18 Principal diagnosis: ESRD Interval history: in dialysis Objective - Vital Signs Vital signs: Vital Signs - 12hr 07/18/18 07/19/18 23:21 04:35 Temperature 98.2 F 97.5 F L Pulse Rate 56 L 57 L Respiratory 20 18 Rate Blood Pressure 129/91 119/60 O2 Sat by Pulse 96 97 Oximetry - Lab 07/19/18 05:45 07/18/18 04:55 Most recent lab results Calcium 8.3 mg/dL (8.4-10.2) L 07/18/18 04:55 Phosphorus 6.20 mg/dL (2.5-4.5) H 07/18/18 04:55 Medications & Allergies - Medications Allergies/Adverse Reactions: Allergies No Known Allergies Allergy (Unverified 07/16/18 16:37) Home Medications: Home Medications Medication Instructions Recorded Confirmed Last Taken Type AtorvaSTATin [Lipitor] 20 mg PO QHS 07/16/18 07/16/18 Unknown History Carvedilol [Coreg] 25 mg PO BID 07/16/18 07/16/18 Unknown History Ergocalciferol (Vitamin D2) 50,000 unit PO QWEEK 07/16/18 07/16/18 Unknown History [Drisdol] Gabapentin [Gralise] 300 mg PO QHS 07/16/18 07/16/18 Unknown History Losartan [Cozaar] 100 mg PO QDAY 07/16/18 07/16/18 Unknown History NIFEdipine [Nifedipine ER] 90 mg PO QHS 07/16/18 07/16/18 Unknown History Sevelamer Carbonate [Renvela] 2,400 mg PO TIDWM 07/16/18 07/16/18 Unknown History Topiramate [Topamax] 50 mg PO BID 07/16/18 07/16/18 Unknown History Venlafaxine [Effexor 37.5mg tab] 37.5 mg PO QDAY 07/16/18 07/16/18 Unknown History Vit B Comp C/Folic Acid/Vit D3 1 each PO DAILY 07/16/18 07/16/18 Unknown History [Dialyvite 800 Plus D Wafer] hydrOXYzine HCl [Hydroxyzine HCl] 25 mg PO TID 07/16/18 07/16/18 Unknown History Active Medications: Generic Name Dose Route Start Last Admin Trade Name Freq PRN Reason Stop Dose Admin Acetaminophen 650 mg 07/16/18 20:34 Tylenol PO Q4H PRN Pain MILD(1-3)/Fever >100.5/SANCHEZ Albumin Human 12.5 gm 07/17/18 11:23 Alburx 25% (Albumin) IV JOSE PRN Hypotension Aspirin 325 mg 07/18/18 10:00 07/18/18 09:01 Aspirin PO 325 mg QDAY CHRISTINE Administration Atorvastatin Calcium 20 mg 07/16/18 22:00 07/18/18 22:44 Lipitor PO 20 mg QHS CHRISTINE Administration Carvedilol 25 mg 07/16/18 22:00 07/18/18 22:44 Coreg PO 25 mg BID CHRISTINE Administration Ergocalciferol 50,000 unit 07/17/18 10:00 07/17/18 10:00 Vitamin D2 PO Not Given We [facility] Famotidine 10 mg 07/16/18 22:00 07/18/18 22:43 Pepcid PO 10 mg BID CHRISTINE Administration Hydroxyzine HCl 25 mg 07/16/18 23:00 07/18/18 20:16 Atarax PO 25 mg TID CHRISTINE Administration Sodium Chloride 100 mls @ 999 mls/hr 07/17/18 11:23 Nacl 0.9% IV JOSE PRN Hypotension Heparin Sodium/Sodium Chloride 25,000 unit in 500 mls @ 20 mls/hr 07/17/18 13:00 07/19/18 02:00 Heparin/ 0.45% Nacl-25,000 Unit/500 Ml IV 1,200 units/hr TITRATE CHRISTINE 24 mls/hr Administration Protocol 1,000 UNITS/HR Insulin Glargine 25 units 07/18/18 22:00 07/18/18 22:44 Lantus SUB-Q 25 units QHS CHRISTINE Administration Insulin Human Lispro 10 unit 07/18/18 15:32 07/18/18 22:55 Humalog SUB-Q Not Given ACHS CHRISTINE Protocol Losartan Potassium 100 mg 07/16/18 21:00 07/18/18 09:02 Cozaar PO 100 mg QDAY CHRISTINE Administration Multivit/Ca Carb/B Cmplx/FA/Prenat 1 cap 07/16/18 21:00 07/18/18 09:02 Renal Caps PO 1 cap DAILY CHRISTINE Administration Nifedipine 90 mg 07/16/18 22:00 07/18/18 22:43 Procardia Xl PO 90 mg QHS CHRISTINE Administration Ondansetron HCl 4 mg 07/16/18 20:34 Zofran IV Q8H PRN Nausea And Vomiting Oxycodone/Acetaminophen 1 tab 07/16/18 20:34 07/18/18 20:16 Percocet 5/325 PO 1 tab Q6H PRN Administration Pain, Moderate (4-6) Sevelamer Carbonate 2,400 mg 07/17/18 08:00 07/18/18 17:52 Renvela PO 2,400 mg TIDWM CHRISTINE Administration Sodium Chloride 10 ml 07/16/18 22:00 07/18/18 22:45 Sodium Chloride Flush Syringe 10 Ml IV 10 ml BID CHRISTINE Administration Sodium Chloride 10 ml 07/16/18 20:58 Sodium Chloride Flush Syringe 10 Ml IV PRN PRN LINE FLUSH Topiramate 50 mg 07/16/18 22:00 07/18/18 22:45 Topamax PO Not Given BID CHRISTINE Venlafaxine HCl 37.5 mg 07/16/18 21:00 07/18/18 09:02 Effexor PO 37.5 mg QDAY CHRISTINE Administration
--- NOTE | 2018-07-19 11:56 | Progress Note ---
Assessment and Plan Patient appears to be comfortable. No significant chest pain today. No difficulty in breathing or palpitations. Patient is noted to have severe aortic stenosis. Ejection fraction is 40-45%. No significant ischemia is noted with the stress test today. Patient is going to have dialysis today. The plan is to obtain a cardiac catheterization on Sunday for further cardiac evaluation and management. Discussed with Dr. Villa - Patient Problems (1) Chest pain Current Visit: Yes Status: Acute Qualifiers: Chest pain type: unspecified Qualified Code(s): R07.9 - Chest pain, unspecified (2) Hyperlipidemia Current Visit: Yes Status: Chronic Qualifiers: Hyperlipidemia type: mixed hyperlipidemia Qualified Code(s): E78.2 - Mixed hyperlipidemia (3) Hypertension Current Visit: Yes Status: Chronic Qualifiers: Hypertension type: essential hypertension Qualified Code(s): I10 - Essential (primary) hypertension (4) Type 2 diabetes mellitus Current Visit: Yes Status: Chronic Qualifiers: Diabetes mellitus intermediate insulin use: without timber buyer use (5) Aortic stenosis Current Visit: Yes Status: Acute (6) LV dysfunction Current Visit: Yes Status: Acute Subjective Date of service: 07/19/18 Principal diagnosis: ESRD Interval history: Patient appears to be comfortable denies chest pain difficulty in breathing or palpitations. Objective Vital Signs Temp Pulse Resp BP Pulse Ox 07/19/18 10:19 113/81 07/19/18 10:17 108/76 07/19/18 10:16 115/77 07/19/18 10:15 114/74 07/19/18 10:13 115/77 07/19/18 10:11 117/76 07/19/18 10:10 117/84 07/19/18 10:05 122/81 07/19/18 09:24 121/81 07/19/18 04:35 97.5 F L 57 L 18 119/60 97 07/18/18 23:21 98.2 F 56 L 20 129/91 96 07/18/18 19:45 56 L 07/18/18 19:13 98.5 F 59 L 20 147/89 94 07/18/18 15:31 98.4 F 58 L 20 126/72 92 - Physical Examination General: No Apparent Distress HEENT: Positive: PERRL, Normocephaly, Mucus Membranes Moist Neck: Positive: neck supple, trachea midline Cardiac: Positive: Regular Rate, Systolic Murmur Lungs: Positive: clear to auscultation Neuro: Positive: Grossly Intact Abdomen: Positive: Soft. Negative: Tender Skin: Positive: Other (bilateral foot wounds in dressings ) Extremities: Present: Other (bilateral foot wounds covered with dressings ) - Labs and Meds CBC 07/19/18 Range/Units 05:45 Hgb 10.7 L (11.8-15.2) gm/dl Hct 32.8 L (35.5-45.6) % Plt Count 104 L (140-440) K/mm3 - Imaging and Cardiology EKG: report reviewed, image reviewed Echo: pending - EKG Sinus rhythms and dysrhythmias: sinus rhythm Chamber hypertrophy or enlargement: left ventricular hypertro Myocardial infarction: inferior TN (old age inde
[2018-07-19] MEDS ORDERED: NACL 0.9 (PRIMING MACHINE ONLY DIALYSIS) MC ONE ×2 (11:58→14:07)
--- NOTE | 2018-07-19 13:29 | Progress Note ---
Assessment and Plan Assessment and plan: (1) Chest pain, NSTEMI - On heparin drip - Troponins were negative - Stress test is negative - Echo was done and ejection fraction was 40-45%, with severe aortic stenosis - Patient will have cardiac cath on Sunday (2) ESRD needing dialysis - Nephrology consulted and will continue with dialysis (3) Type 2 diabetes mellitus - Well controlled - Hemoglobin A1c is 10.5 - Sliding-scale insulin, Lantus 25 units daily at bedtime and Humalog 10 units TID - Accu-Chek, ADA diet, monitoring and adjust as needed (4) Slurred speech - Patient said he went [place] when he has slurred speech and told has TIA but no workup was done - CT head was done and negative, no further workup needed (5) Hypertension - Continue antihypertensives - Controlled (6) Hyperlipidemia Continue statins (7) left foot and leg ulcer - Evaluated by Dr Toney and recommend wound care - Will follow the Arterial doppler and was done (8) Peripheral neuropathy Continue gabapentin (9) Depression Continue Effexor 37.5 mg daily (10) Vitamin D deficiency Continue vitamin D per schedule (11) DVT prophylaxis On heparin and GI prophylaxis History Interval history: Patient was seen and evaluated this morning, patient didn't have any new complaints. Hospitalist Physical - Physical exam Narrative exam: Not in cardiopulmonary distress. The patient appeared well nourished and normally developed. Vital signs as documented. Head exam is unremarkable. No scleral icterus . Neck is without jugular venous distension, thyromegaly, or carotid bruits. Lungs are clear to auscultation. Cardiac exam reveals regular rate and Rhythm. First and second heart sounds normal. No murmurs, rubs or gallops. Abdominal exam reveals normal bowel sounds, no masses, no organomegaly and no aortic enlargement. Extremities bliateral cronic LE swelling and ulcer on the left leg and foot. 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 No focal weakness. - Constitutional Vitals: Temp Pulse Resp BP Pulse Ox 97.5 F L 57 L 18 113/81 97 07/19/18 04:35 07/19/18 04:35 07/19/18 04:35 07/19/18 10:19 07/19/18 04:35 General appearance: Present: no acute distress Results - Labs CBC & Chem 7: 07/19/18 05:45 07/18/18 04:55 Labs: Laboratory Last Values WBC 7.2 K/mm3 (4.5-11.0) 07/18/18 04:55 RBC 3.50 M/mm3 (3.65-5.03) L 07/18/18 04:55 Hgb 10.7 gm/dl (11.8-15.2) L 07/19/18 05:45 Hct 32.8 % (35.5-45.6) L 07/19/18 05:45 MCV 95 fl (84-94) H 07/18/18 04:55 MCH 31 pg (28-32) 07/18/18 04:55 MCHC 33 % (32-34) 07/18/18 04:55 RDW 16.7 % (13.2-15.2) H 07/18/18 04:55 Plt Count 104 K/mm3 (140-440) L 07/19/18 05:45 Lymph % (Auto) 18.2 % (13.4-35.0) 07/18/18 04:55 [place] % (Auto) 9.6 % (0.0-7.3) H 07/18/18 04:55 Eos % (Auto) 4.2 % (0.0-4.3) 07/18/18 04:55 Baso % (Auto) 0.7 % (0.0-1.8) 07/18/18 04:55 Lymph # 1.3 K/mm3 (1.2-5.4) 07/18/18 04:55 [place] # 0.7 K/mm3 (0.0-0.8) 07/18/18 04:55 Eos # 0.3 K/mm3 (0.0-0.4) 07/18/18 04:55 Baso # 0.1 K/mm3 (0.0-0.1) 07/18/18 04:55 Seg Neutrophils % 67.3 % (40.0-70.0) 07/18/18 04:55 Seg Neutrophils # 4.8 K/mm3 (1.8-7.7) 07/18/18 04:55 PT 15.9 Sec. (12.2-14.9) H 07/17/18 12:52 INR 1.19 (0.87-1.13) H 07/17/18 12:52 APTT 32.6 Sec. (24.2-36.6) 07/17/18 12:52 D-Dimer 473.16 ng/mlDDU (0-234) H 07/16/18 15:23 Heparin Anti-Xa Level 0.51 U.I./ml (0.3-0.7) 07/19/18 05:55 Sodium 138 mmol/L (137-145) 07/18/18 04:55 Potassium 4.3 mmol/L (3.6-5.0) 07/18/18 04:55 Chloride 95.6 mmol/L (98-107) L 07/18/18 04:55 Carbon Dioxide 22 mmol/L (22-30) 07/18/18 04:55 Anion Gap 25 mmol/L 07/18/18 04:55 BUN 62 mg/dL (9-20) H 07/18/18 04:55 Creatinine 7.3 mg/dL (0.8-1.5) H 07/18/18 04:55 Estimated GFR 10 ml/min 07/18/18 04:55 BUN/Creatinine Ratio 8 % 07/18/18 04:55 Glucose 123 mg/dL (75-100) H 07/18/18 04:55 POC Glucose 102 (70-105) 07/19/18 07:33 Hemoglobin A1c 10.9 % (4-6) H 07/16/18 21:16 Calcium 8.3 mg/dL (8.4-10.2) L 07/18/18 04:55 Phosphorus 6.20 mg/dL (2.5-4.5) H 07/18/18 04:55 Total Bilirubin 0.50 mg/dL (0.1-1.2) 07/18/18 04:55 AST 34 units/L (5-40) 07/18/18 04:55 ALT 48 units/L (7-56) 07/18/18 04:55 Alkaline Phosphatase 275 units/L (35-129) H 07/18/18 04:55 Troponin T 1.080 ng/mL (0.00-0.029) H* 07/17/18 05:58 Total Protein 7.8 g/dL (6.3-8.2) 07/18/18 04:55 Albumin 2.9 g/dL (3.9-5) L 07/18/18 04:55 Albumin/Globulin Ratio 0.6 % 07/18/18 04:55 Triglycerides 36 mg/dL (2-149) 07/16/18 12:16 Cholesterol 91 mg/dL (50-199) 07/16/18 12:16 LDL Cholesterol Direct 50 mg/dL (50-130) 07/16/18 12:16 HDL Cholesterol 44 mg/dL (40-59) 07/16/18 12:16 Cholesterol/HDL Ratio 2.06 % 07/16/18 12:16 Hepatitis A IgM Ab Non-reactive (NonReactive) 07/17/18 20:48 Hep Bs Antigen Non-reactive (Negative) 07/17/18 20:48 Hep B Core IgM Ab Non-reactive (NonReactive) 07/17/18 20:48 Hepatitis C Antibody Non-reactive (NonReactive) 07/17/18 20:48 Active Medications - Current Medications Current Medications: Generic Name Dose Route Start Last Admin Trade Name Freq PRN Reason Stop Dose Admin Acetaminophen 650 mg 07/16/18 20:34 Tylenol PO Q4H PRN Pain MILD(1-3)/Fever >100.5/SANCHEZ Albumin Human 12.5 gm 07/17/18 11:23 Alburx 25% (Albumin) IV JOSE PRN Hypotension Aspirin 325 mg 07/18/18 10:00 07/18/18 09:01 Aspirin PO 325 mg QDAY CHRISTINE Administration Atorvastatin Calcium 20 mg 07/16/18 22:00 07/18/18 22:44 Lipitor PO 20 mg QHS CHRISTINE Administration Carvedilol 25 mg 07/16/18 22:00 07/18/18 22:44 Coreg PO 25 mg BID CHRISTINE Administration Ergocalciferol 50,000 unit 07/17/18 10:00 07/17/18 10:00 Vitamin D2 PO Not Given We [facility] Famotidine 10 mg 07/16/18 22:00 07/18/18 22:43 Pepcid PO 10 mg BID CHRISTINE Administration Hydroxyzine HCl 25 mg 07/16/18 23:00 07/18/18 20:16 Atarax PO 25 mg TID CHRISTINE Administration Sodium Chloride 100 mls @ 999 mls/hr 07/17/18 11:23 Nacl 0.9% IV JOSE PRN Hypotension Heparin Sodium/Sodium Chloride 25,000 unit in 500 mls @ 20 mls/hr 07/17/18 13:00 07/19/18 02:00 Heparin/ 0.45% Nacl-25,000 Unit/500 Ml IV 1,200 units/hr TITRATE CHRISTINE 24 mls/hr Administration Protocol 1,000 UNITS/HR Insulin Glargine 25 units 07/18/18 22:00 07/18/18 22:44 Lantus SUB-Q 25 units QHS CHRISTINE Administration Insulin Human Lispro 10 unit 07/18/18 15:32 07/18/18 22:55 Humalog SUB-Q Not Given ACHS [facility] Protocol Losartan Potassium 100 mg 07/16/18 21:00 07/18/18 09:02 Cozaar PO 100 mg QDAY CHRISTINE Administration Multivit/Ca Carb/B Cmplx/FA/Prenat 1 cap 07/16/18 21:00 07/18/18 09:02 Renal Caps PO 1 cap DAILY CHRISTINE Administration Nifedipine 90 mg 07/16/18 22:00 07/18/18 22:43 Procardia Xl PO 90 mg QHS CHRISTINE Administration Ondansetron HCl 4 mg 07/16/18 20:34 Zofran IV Q8H PRN Nausea And Vomiting Oxycodone/Acetaminophen 1 tab 07/16/18 20:34 07/18/18 20:16 Percocet 5/325 PO 1 tab Q6H PRN Administration Pain, Moderate (4-6) Sevelamer Carbonate 2,400 mg 07/17/18 08:00 07/18/18 17:52 Renvela PO 2,400 mg TIDWM CHRISTINE Administration Sodium Chloride 10 ml 07/16/18 22:00 07/18/18 22:45 Sodium Chloride Flush Syringe 10 Ml IV 10 ml BID CHRISTINE Administration Sodium Chloride 10 ml 07/16/18 20:58 Sodium Chloride Flush Syringe 10 Ml IV PRN PRN LINE FLUSH Topiramate 50 mg 07/16/18 22:00 07/18/18 22:45 Topamax PO Not Given BID CHRISTINE Venlafaxine HCl 37.5 mg 07/16/18 21:00 07/18/18 09:02 Effexor PO 37.5 mg QDAY CHRISTINE Administration
--- NOTE | 2018-07-19 17:11 | Consultation ---
History of Present Illness - Reason for Consult Consult date: 07/19/18 nonhealing wounds - History of Present Illness 47 year old male with past medical history of ESRD on HD ([facility]), HTN, DM, PVD, blindness. He reports that he sees a youth care specialist at [place] once per year. He presented with complaints of chest pain at admission. He admits that he missed dialysis on both this past Sunday and Sunday. Pt denies any prior AMI, CAD, HF or arrhythmia. He denies any prior cardiac w/u. The patient reports that he is blind and on dialysis and has been walking at home until admission to the hospital but has significant wounds of the bilateral lower extremities. Arterial Doppler demonstrated severe popliteal and infrapopliteal arterial disease bilaterally. His wounds, end-stage renal dis ease, and arterial disease places him at high risk for limb loss which would be bilateral above-knee amputations. Unfortunately, he also has active cardiac issues which require cardiac catheterization on Sunday. The patient has nonpalpable bilateral pedal pulses. Past History Past Medical History: diabetes, dialysis, hypertension, PVD, renal failure Past Surgical History: Other (Left AVF placement) Social history: no significant social history Family history: no significant family history Medications and Allergies Allergies Allergy/AdvReac Type Severity Reaction Status Date / Time No Known Allergies Allergy Unverified 07/16/18 16:37 Home Medications Medication Instructions Recorded Confirmed Last Taken Type AtorvaSTATin [Lipitor] 20 mg PO QHS 07/16/18 07/16/18 Unknown History Carvedilol [Coreg] 25 mg PO BID 07/16/18 07/16/18 Unknown History Ergocalciferol (Vitamin D2) 50,000 unit PO QWEEK 07/16/18 07/16/18 Unknown History [Drisdol] Gabapentin [Gralise] 300 mg PO QHS 07/16/18 07/16/18 Unknown History Losartan [Cozaar] 100 mg PO QDAY 07/16/18 07/16/18 Unknown History NIFEdipine [Nifedipine ER] 90 mg PO QHS 07/16/18 07/16/18 Unknown History Sevelamer Carbonate [Renvela] 2,400 mg PO TIDWM 07/16/18 07/16/18 Unknown History Topiramate [Topamax] 50 mg PO BID 07/16/18 07/16/18 Unknown History Venlafaxine [Effexor 37.5mg tab] 37.5 mg PO QDAY 07/16/18 07/16/18 Unknown History Vit B Comp C/Folic Acid/Vit D3 1 each PO DAILY 07/16/18 07/16/18 Unknown History [Dialyvite 800 Plus D Wafer] hydrOXYzine HCl [Hydroxyzine HCl] 25 mg PO TID 07/16/18 07/16/18 Unknown History Active Meds: Active Medications Acetaminophen (Tylenol) 650 mg PO Q4H PRN PRN Reason: Pain MILD(1-3)/Fever >100.5/SANCHEZ Albumin Human (Alburx 25% (Albumin)) 12.5 gm IV JOSE PRN PRN Reason: Hypotension Aspirin (Aspirin) 325 mg PO QDAY [facility] Last Admin: 07/18/18 09:01 Dose: 325 mg Documented by: Atorvastatin Calcium (Lipitor) 20 mg PO QHS [facility] Last Admin: 07/18/18 22:44 Dose: 20 mg Documented by: Carvedilol (Coreg) 25 mg PO BID [facility] Last Admin: 07/18/18 22:44 Dose: 25 mg Documented by: Ergocalciferol (Vitamin D2) 50,000 unit PO We [facility] Last Admin: 07/17/18 10:00 Dose: Not Given Documented by: Famotidine (Pepcid) 10 mg PO BID [facility] Last Admin: 07/18/18 22:43 Dose: 10 mg Documented by: Hydroxyzine HCl (Atarax) 25 mg PO TID [facility] Last Admin: 07/18/18 20:16 Dose: 25 mg Documented by: Sodium Chloride (Nacl 0.9%) 100 mls @ 999 mls/hr IV JOSE PRN PRN Reason: Hypotension Heparin Sodium/Sodium Chloride (Heparin/ 0.45% Nacl-25,000 Unit/500 Ml) 25,000 unit in 500 mls @ 20 mls/hr IV TITRATE [facility]; Protocol Last Admin: 07/19/18 02:00 Dose: 1,200 units/hr, 24 mls/hr Documented by: Insulin Glargine (Lantus) 25 units SUB-Q QHS [facility] Last Admin: 07/18/18 22:44 Dose: 25 units Documented by: Insulin Human Lispro (Humalog) 10 unit SUB-Q ACHS [facility]; Protocol Last Admin: 07/18/18 22:55 Dose: Not Given Documented by: Losartan Potassium (Cozaar) 100 mg PO QDAY [facility] Last Admin: 07/18/18 09:02 Dose: 100 mg Documented by: Multivit/Ca Carb/B Cmplx/FA/Prenat (Renal Caps) 1 cap PO DAILY [facility] Last Admin: 07/18/18 09:02 Dose: 1 cap Documented by: Nifedipine (Procardia Xl) 90 mg PO QHS [facility] Last Admin: 07/18/18 22:43 Dose: 90 mg Documented by: Ondansetron HCl (Zofran) 4 mg IV Q8H PRN PRN Reason: Nausea And Vomiting Oxycodone/Acetaminophen (Percocet 5/325) 1 tab PO Q6H PRN PRN Reason: Pain, Moderate (4-6) Last Admin: 07/18/18 20:16 Dose: 1 tab Documented by: Sevelamer Carbonate (Renvela) 2,400 mg PO TIDWM [facility] Last Admin: 07/18/18 17:52 Dose: 2,400 mg Documented by: Sodium Chloride (Sodium Chloride Flush Syringe 10 Ml) 10 ml IV BID [facility] Last Admin: 07/18/18 22:45 Dose: 10 ml Documented by: Sodium Chloride (Sodium Chloride Flush Syringe 10 Ml) 10 ml IV PRN PRN PRN Reason: LINE FLUSH Topiramate (Topamax) 50 mg PO BID [facility] Last Admin: 07/18/18 22:45 Dose: Not Given Documented by: Venlafaxine HCl (Effexor) 37.5 mg PO QDAY [facility] Last Admin: 07/18/18 09:02 Dose: 37.5 mg Documented by: Review of Systems All systems: negative (see HPI) Exam - Constitutional Vitals: Temp Pulse Resp BP Pulse Ox 98.0 F 87 18 156/87 97 07/19/18 15:00 07/19/18 15:00 07/19/18 15:00 07/19/18 15:00 07/19/18 04:35 General appearance: Present: no acute distress - Respiratory Respiratory effort: normal - Extremities Extremities: normal temperature, abnormal (wound of the lower extremities, nonpalpable pulses, neuropathy of the feet) - Psychiatric Psychiatric: appropriate mood/affect, cooperative Results - Labs CBC & Chem 7: 07/19/18 05:45 07/18/18 04:55 Labs: Abnormal lab results 07/18/18 07/18/18 07/18/18 Range/Units 10:53 15:38 17:56 Hgb (11.8-15.2) gm/dl Hct (35.5-45.6) % Plt Count (140-440) K/mm3 Heparin Anti-Xa Level 0.17 L (0.3-0.7) U.I./ml POC Glucose 145 H 135 H (70-105) 07/18/18 07/18/18 07/19/18 Range/Units 21:06 23:42 05:45 Hgb 10.7 L (11.8-15.2) gm/dl Hct 32.8 L (35.5-45.6) % Plt Count 104 L (140-440) K/mm3 Heparin Anti-Xa Level 0.21 L (0.3-0.7) U.I./ml POC Glucose 205 H (70-105) - Imaging and Cardiology Venous US: report reviewed, image reviewed (arterial) Assessment and Plan 47-year-old male with active cardiac issues, end-stage renal disease, blindness, and severe wound to the lower extremities with neuropathy. His lower extremity wounds have significant arterial contribution and would benefit from revascularization. His wounds, neuropathy, end-stage renal disease, and cardiac issues place him at high risk for limb loss. Patient requires endovascular revascularization, offloading his feet to allow for wound healing, aggressive wound care, and most likely hyperbaric oxygen therapy if possible. Unfortunately, despite the severity of his lower extremity wounds, he is active cardiac issues which take priority. Once his cardiac issues can be addressed, then his lower chin the wounds can be addressed.
[2018-07-19] MEDS: TOPAMAX PO SCH ×2 (17:50→22:22)
[2018-07-19] MEDS: PEPCID PO SCH ×2 (17:50→22:13)
[2018-07-19] MEDS: SODIUM CHLORIDE FLUSH SYRINGE 10 ML IV SCH ×2 (17:50→22:23)
[2018-07-19] MEDS: EFFEXOR PO SCH (18:13)
[2018-07-19] MEDS: ASPIRIN PO SCH (18:13)
[2018-07-19] MEDS: COZAAR PO SCH (18:13)
[2018-07-19] MEDS: Renal Caps PO SCH (18:14)
[2018-07-19] MEDS: LANTUS SUB-Q SCH (21:56)
--- NOTE | 2018-07-19 22:11 | Treadmill Report ---
NUCLEAR PERFUSION SCAN REFERRING PHYSICIAN: Kodak Carlton MD PROTOCOL: The patient was brought to the stress lab in postoperative state, given 10 mCi of technetium at rest. The patient underwent rest imaging. The patient underwent Lexiscan stress test. At peak stress, the patient was given 26 mCi of technetium 99m. Shortly thereafter, the patient underwent stress imaging. Raw imaging reveals mild GI artifact. No significant motion artifact. SPECT image examined carefully in horizontal long axis, vertical long axis, short axis views. There is normal homogenous uptake of radioisotope in all reported segments. No evidence of significant fixed or reversible perfusion defects suggestive of prior infarction or ischemia. Gated wall motion reveals moderate severe global left ventricular hypokinesis with a calculated ejection fraction 36%. No TID. CONCLUSIONS: 1. Normal myocardial perfusion scan without evidence of active ischemia or prior infarction. 2. [id number] global left ventricular hypokinesis with calculated ejection fraction of 36%. JOB# [id number] DAVONTE/STEPHANIE
[2018-07-19] MEDS: PROCARDIA XL PO SCH (22:13)
[2018-07-20] MEDS: HEPARIN/ 0.45% NACL-25,000 UNIT/500 ML 25,000 UNIT/500 ML BAG IV SCH (05:24)
[2018-07-20 07:47] LABS: Calcium 8.6 mg/dL (8.4-10.2)
[2018-07-20] MEDS: ATARAX PO SCH ×3 (08:52→20:25)
--- NOTE | 2018-07-20 10:11 | Progress Note ---
Assessment and Plan End Stage Renal Disease on HD: -S/p HD yesterday for UF and clearance, UF removed 2 liters -No acute indication for HD today -Assess need for HD on daily basis -Fluid restriction of 1 liter per day -On renvela for hyperphosphatemia management -Renal diet -Monitor I/O's -Renal plan d/w Dr Calhoun Chest Pain: - Cardiology on board, planning on cardiac cath on Sunday Slurred Speech: -Head CT negative -As per Attending Peripheral vascular disease: -Vascular surgery consulted, pt has significant arterial contribution and would benefit from revascularization once cardiac issues are addressed per Dr Belle note -Wound care Hypertension: -On Coreg and Losartan -Adjust regimen as needed Diabetes Mellitus type 2 on insulin: -On insulin as per primary Subjective Date of service: 07/20/18 Principal diagnosis: ESRD Interval history: Pt seen in bed, denies shortness of breath, states tolerated HD well yesterday, no acute distress. No family at bedside Objective - Vital Signs Vital signs: Vital Signs - 12hr 07/19/18 07/19/18 07/20/18 22:14 23:17 03:17 Temperature 98.0 F 98.3 F Pulse Rate 67 63 Respiratory 20 20 Rate Blood Pressure 132/82 135/84 O2 Sat by Pulse 93 93 97 Oximetry - General Appearance General appearance: well-developed EENT: ATNC Neck: no JVD Respiratory: Present: Decreased Breath Sounds Cardiology: regular, S1S2, other (ACCESS: Left AVF + thrill and bruit noted) Gastrointestinal: normoactive bowel sounds Integumentary: ulcer, other (bilateral lower extremity wounds with dressings in place) Neurologic: alert and oriented x3 Musculoskeletal: other (1+ edema to BLE) Psychiatric: cooperative - Lab 07/19/18 05:45 07/20/18 06:22 Most recent lab results Calcium 8.6 mg/dL (8.4-10.2) 07/20/18 06:22 Phosphorus 6.50 mg/dL (2.5-4.5) H 07/20/18 06:22 Medications & Allergies - Medications Allergies/Adverse Reactions: Allergies No Known Allergies Allergy (Unverified 07/16/18 16:37) Home Medications: Home Medications Medication Instructions Recorded Confirmed Last Taken Type AtorvaSTATin [Lipitor] 20 mg PO QHS 07/16/18 07/16/18 Unknown History Carvedilol [Coreg] 25 mg PO BID 07/16/18 07/16/18 Unknown History Ergocalciferol (Vitamin D2) 50,000 unit PO QWEEK 07/16/18 07/16/18 Unknown History [Drisdol] Gabapentin [Gralise] 300 mg PO QHS 07/16/18 07/16/18 Unknown History Losartan [Cozaar] 100 mg PO QDAY 07/16/18 07/16/18 Unknown History NIFEdipine [Nifedipine ER] 90 mg PO QHS 07/16/18 07/16/18 Unknown History Sevelamer Carbonate [Renvela] 2,400 mg PO TIDWM 07/16/18 07/16/18 Unknown History Topiramate [Topamax] 50 mg PO BID 07/16/18 07/16/18 Unknown History Venlafaxine [Effexor 37.5mg tab] 37.5 mg PO QDAY 07/16/18 07/16/18 Unknown History Vit B Comp C/Folic Acid/Vit D3 1 each PO DAILY 07/16/18 07/16/18 Unknown History [Dialyvite 800 Plus D Wafer] hydrOXYzine HCl [Hydroxyzine HCl] 25 mg PO TID 07/16/18 07/16/18 Unknown History Active Medications: Generic Name Dose Route Start Last Admin Trade Name Freq PRN Reason Stop Dose Admin Acetaminophen 650 mg 07/16/18 20:34 Tylenol PO Q4H PRN Pain MILD(1-3)/Fever >100.5/SANCHEZ Albumin Human 12.5 gm 07/17/18 11:23 Alburx 25% (Albumin) IV JOSE PRN Hypotension Aspirin 325 mg 07/18/18 10:00 07/19/18 18:13 Aspirin PO 325 mg QDAY [facility]INE Administration Atorvastatin Calcium 20 mg 07/16/18 22:00 07/19/18 22:13 Lipitor PO 20 mg QHS [facility] Administration Carvedilol 25 mg 07/16/18 22:00 07/19/18 22:13 Coreg PO 25 mg BID [facility] Administration Ergocalciferol 50,000 unit 07/17/18 10:00 07/17/18 10:00 Vitamin D2 PO Not Given We [facility] Famotidine 10 mg 07/16/18 22:00 07/19/18 22:13 Pepcid PO 10 mg BID [facility] Administration Hydroxyzine HCl 25 mg 07/16/18 23:00 07/19/18 22:22 Atarax PO 25 mg TID [facility] Administration Sodium Chloride 100 mls @ 999 mls/hr 07/17/18 11:23 Nacl 0.9% IV JOSE PRN Hypotension Heparin Sodium/Sodium Chloride 25,000 unit in 500 mls @ 20 mls/hr 07/17/18 13:00 07/20/18 05:24 Heparin/ 0.45% Nacl-25,000 Unit/500 Ml IV 1,400 units/hr TITRATE [facility]STINE 28 mls/hr Administration Protocol 1,000 UNITS/HR Insulin Glargine 25 units 07/18/18 22:00 07/19/18 21:56 Lantus SUB-Q Not Given QHS [facility] Insulin Human Lispro 10 unit 07/18/18 15:32 07/19/18 21:56 Humalog SUB-Q Not Given ACHS [facility] Protocol Losartan Potassium 100 mg 07/16/18 21:00 07/19/18 18:13 Cozaar PO 100 mg QDAY [facility] Administration Multivit/Ca Carb/B Cmplx/FA/Prenat 1 cap 07/16/18 21:00 07/19/18 18:14 Renal Caps PO 1 cap DAILY [facility] Administration Nifedipine 90 mg 07/16/18 22:00 07/19/18 22:13 Procardia Xl PO 90 mg QHS [facility] Administration Ondansetron HCl 4 mg 07/16/18 20:34 Zofran IV Q8H PRN Nausea And Vomiting Oxycodone/Acetaminophen 1 tab 07/16/18 20:34 07/18/18 20:16 Percocet 5/325 PO 1 tab Q6H PRN Administration Pain, Moderate (4-6) Sevelamer Carbonate 2,400 mg 07/17/18 08:00 07/19/18 18:25 Renvela PO 2,400 mg TIDWM [facility] Administration Sodium Chloride 10 ml 07/16/18 22:00 07/19/18 22:23 Sodium Chloride Flush Syringe 10 Ml IV 10 ml BID [facility] Administration Sodium Chloride 10 ml 07/16/18 20:58 Sodium Chloride Flush Syringe 10 Ml IV PRN PRN LINE FLUSH Topiramate 50 mg 07/16/18 22:00 07/19/18 22:22 Topamax PO 50 mg BID [facility] Administration Venlafaxine HCl 37.5 mg 07/16/18 21:00 07/19/18 18:13 Effexor PO 37.5 mg QDAY [facility] Administration
--- NOTE | 2018-07-20 10:39 | Progress Note ---
Assessment and Plan Patient is comfortable today. Denies significant cardiac symptoms. Recent has aortic stenosis and left ventricular dysfunction. Plan is to obtain a cardiac catheterization on Sunday - Patient Problems (1) Chest pain Current Visit: Yes Status: Acute Qualifiers: Chest pain type: unspecified Qualified Code(s): R07.9 - Chest pain, unspecified (2) Hyperlipidemia Current Visit: Yes Status: Chronic Qualifiers: Hyperlipidemia type: mixed hyperlipidemia Qualified Code(s): E78.2 - Mixed hyperlipidemia (3) Hypertension Current Visit: Yes Status: Chronic Qualifiers: Hypertension type: essential hypertension Qualified Code(s): I10 - Essential (primary) hypertension (4) Type 2 diabetes mellitus Current Visit: Yes Status: Chronic Qualifiers: Diabetes mellitus correction insulin use: without termite helper use (5) Aortic stenosis Current Visit: Yes Status: Acute (6) LV dysfunction Current Visit: Yes Status: Acute Subjective Date of service: 07/20/18 Principal diagnosis: ESRD Interval history: Patient is comfortable today. No cardiac symptoms Objective Vital Signs Temp Pulse Resp BP Pulse Ox 07/20/18 03:17 98.3 F 63 20 135/84 97 07/19/18 23:17 98.0 F 67 20 132/82 93 07/19/18 22:14 93 07/19/18 20:35 67 07/19/18 20:25 98.3 F 62 20 146/84 94 07/19/18 15:00 98.0 F 87 18 156/87 07/19/18 14:30 67 153/83 07/19/18 14:15 66 146/84 07/19/18 14:00 66 146/84 07/19/18 13:45 64 141/85 07/19/18 13:30 63 144/89 07/19/18 13:15 64 141/85 07/19/18 13:00 64 123/81 07/19/18 12:45 62 124/78 07/19/18 12:30 62 124/78 07/19/18 12:15 61 128/84 07/19/18 12:00 58 L 122/71 07/19/18 11:45 58 L 121/78 07/19/18 11:35 59 L 120/66 07/19/18 11:30 97.5 F L 58 L 18 114/78 - Physical Examination General: No Apparent Distress HEENT: Positive: PERRL, Normocephaly, Mucus Membranes Moist Neck: Positive: neck supple, trachea midline Cardiac: Positive: Reg Rate and Rhythm, Other (grade 2 to 3/6 ejection systolic murmur is present.) Lungs: Positive: clear to auscultation Neuro: Positive: Grossly Intact Abdomen: Positive: Soft. Negative: Tender Skin: Positive: Other (bilateral foot wounds in dressings ) Extremities: Present: normal, Other (bilateral foot wounds covered with dressings ) - Labs and Meds Comprehensive Metabolic Panel 07/20/18 Range/Units 06:22 Sodium 136 L (137-145) mmol/L Potassium 4.7 (3.6-5.0) mmol/L Chloride 94.9 L (98-107) mmol/L Carbon Dioxide 25 (22-30) mmol/L BUN 52 H (9-20) mg/dL Creatinine 6.9 H (0.8-1.5) mg/dL Glucose 99 (75-100) mg/dL Calcium 8.6 (8.4-10.2) mg/dL - Imaging and Cardiology EKG: report reviewed, image reviewed Echo: pending - EKG Sinus rhythms and dysrhythmias: sinus rhythm Chamber hypertrophy or enlargement: left ventricular hypertro Myocardial infarction: inferior FL (old age inde
[2018-07-20] MEDS: COZAAR PO SCH (10:57)
[2018-07-20] MEDS: Renal Caps PO SCH (10:57)
[2018-07-20] MEDS: ASPIRIN PO SCH (10:57)
[2018-07-20] MEDS: RENVELA PO SCH ×3 (10:57→17:52)
[2018-07-20] MEDS: TOPAMAX PO SCH ×2 (10:57→22:30)
[2018-07-20] MEDS: EFFEXOR PO SCH (10:57)
[2018-07-20] MEDS: COREG PO SCH ×2 (10:58→22:30)
[2018-07-20] MEDS: PEPCID PO SCH ×2 (10:58→22:29)
[2018-07-20] MEDS: HumaLOG SUB-Q SCH ×4 (10:59→22:31)
--- NOTE | 2018-07-20 12:33 | Progress Note ---
Assessment and Plan Assessment and plan: (1) Chest pain, NSTEMI - On heparin drip - Troponins were negative - Stress test is negative - Echo was done and ejection fraction was 40-45%, with severe aortic stenosis - Patient will have cardiac cath on Sunday PVD - Arterial Doppler was done and showed obstruction of bilateral lower extremity arteries - Vascular consulted and said will do revasularization after his cardiac issue is taken care of (2) ESRD needing dialysis - Nephrology consulted and will continue with dialysis (3) Type 2 diabetes mellitus - Well controlled - Hemoglobin A1c is 10.5 - Sliding-scale insulin, Lantus 25 units daily at bedtime and Humalog 10 units TID - Accu-Chek, ADA diet, monitoring and adjust as needed (4) Slurred speech - Patient said he went [place] when he has slurred speech and told has TIA but no workup was done - CT head was done and negative, no further workup needed (5) Hypertension - Continue antihypertensives - Controlled (6) Hyperlipidemia Continue statins (7) left foot and leg ulcer - Evaluated by Dr Toney and recommend wound care - Will follow the Arterial doppler and was done (8) Peripheral neuropathy Continue gabapentin (9) Depression Continue Effexor 37.5 mg daily (10) Vitamin D deficiency Continue vitamin D per schedule (11) DVT prophylaxis On heparin and GI prophylaxis History Interval history: Patient was seen and evaluated this morning, patient said he is getting better. No new complaints. Hospitalist Physical - Physical exam Narrative exam: Not in cardiopulmonary distress. The patient appeared well nourished and normally developed. Vital signs as documented. Head exam is unremarkable. No scleral icterus . Neck is without jugular venous distension, thyromegaly, or carotid bruits. Lungs are clear to auscultation. Cardiac exam reveals regular rate and Rhythm. First and second heart sounds normal. No murmurs, rubs or gallops. Abdominal exam reveals normal bowel sounds, no masses, no organomegaly and no aortic enlargement. Extremities bliateral cronic LE swelling and ulcer on the left leg and foot. FOUNDRY WORKER: Alert and oriented 3. No focal weakness. - Constitutional Vitals: Temp Pulse Resp BP Pulse Ox 98.3 F 63 20 135/84 95 07/20/18 03:17 07/20/18 03:17 07/20/18 03:17 07/20/18 03:07/20/18 10:00 General appearance: Present: no acute distress Results - Labs CBC & Chem 7: 07/19/18 05:45 07/20/18 06:22 Labs: Laboratory Last Values WBC 7.2 K/mm3 (4.5-11.0) 07/18/18 04:55 RBC 3.50 M/mm3 (3.65-5.03) L 07/18/18 04:55 Hgb 10.7 gm/dl (11.8-15.2) L 07/19/18 05:45 Hct 32.8 % (35.5-45.6) L 07/19/18 05:45 MCV 95 fl (84-94) H 07/18/18 04:55 MCH 31 pg (28-32) 07/18/18 04:55 MCHC 33 % (32-34) 07/18/18 04:55 RDW 16.7 % (13.2-15.2) H 07/18/18 04:55 Plt Count 104 K/mm3 (140-440) L 07/19/18 05:45 Lymph % (Auto) 18.2 % (13.4-35.0) 07/18/18 04:55 [place] % (Auto) 9.6 % (0.0-7.3) H 07/18/18 04:55 Eos % (Auto) 4.2 % (0.0-4.3) 07/18/18 04:55 Baso % (Auto) 0.7 % (0.0-1.8) 07/18/18 04:55 Lymph # 1.3 K/mm3 (1.2-5.4) 07/18/18 04:55 [place] # 0.7 K/mm3 (0.0-0.8) 07/18/18 04:55 Eos # 0.3 K/mm3 (0.0-0.4) 07/18/18 04:55 Baso # 0.1 K/mm3 (0.0-0.1) 07/18/18 04:55 Seg Neutrophils % 67.3 % (40.0-70.0) 07/18/18 04:55 Seg Neutrophils # 4.8 K/mm3 (1.8-7.7) 07/18/18 04:55 PT 15.9 Sec. (12.2-14.9) H 07/17/18 12:52 INR 1.19 (0.87-1.13) H 07/17/18 12:52 APTT 32.6 Sec. (24.2-36.6) 07/17/18 12:52 D-Dimer 473.16 ng/mlDDU (0-234) H 07/16/18 15:23 Heparin Anti-Xa Level 0.22 U.I./ml (0.3-0.7) L 07/20/18 06:22 Sodium 136 mmol/L (137-145) L 07/20/18 06:22 Potassium 4.7 mmol/L (3.6-5.0) 07/20/18 06:22 Chloride 94.9 mmol/L (98-107) L 07/20/18 06:22 Carbon Dioxide 25 mmol/L (22-30) 07/20/18 06:22 Anion Gap 21 mmol/L 07/20/18 06:22 BUN 52 mg/dL (9-20) H 07/20/18 06:22 Creatinine 6.9 mg/dL (0.8-1.5) H 07/20/18 06:22 Estimated GFR 11 ml/min 07/20/18 06:22 BUN/Creatinine Ratio 8 % 07/20/18 06:22 Glucose 99 mg/dL (75-100) 07/20/18 06:22 POC Glucose 84 (70-105) 07/20/18 07:59 Hemoglobin A1c 10.9 % (4-6) H 07/16/18 21:16 Calcium 8.6 mg/dL (8.4-10.2) 07/20/18 06:22 Phosphorus 6.50 mg/dL (2.5-4.5) H 07/20/18 06:22 Total Bilirubin 0.50 mg/dL (0.1-1.2) 07/18/18 04:55 AST 34 units/L (5-40) 07/18/18 04:55 ALT 48 units/L (7-56) 07/18/18 04:55 Alkaline Phosphatase 275 units/L (35-129) H 07/18/18 04:55 Troponin T 1.080 ng/mL (0.00-0.029) H* 07/17/18 05:58 Total Protein 7.8 g/dL (6.3-8.2) 07/18/18 04:55 Albumin 2.9 g/dL (3.9-5) L 07/18/18 04:55 Albumin/Globulin Ratio 0.6 % 07/18/18 04:55 Triglycerides 36 mg/dL (2-149) 07/16/18 12:16 Cholesterol 91 mg/dL (50-199) 07/16/18 12:16 LDL Cholesterol Direct 50 mg/dL (50-130) 07/16/18 12:16 HDL Cholesterol 44 mg/dL (40-59) 07/16/18 12:16 Cholesterol/HDL Ratio 2.06 % 07/16/18 12:16 Hepatitis A IgM Ab Non-reactive (NonReactive) 07/17/18 20:48 Hep Bs Antigen Non-reactive (Negative) 07/17/18 20:48 Hep B Core IgM Ab Non-reactive (NonReactive) 07/17/18 20:48 Hepatitis C Antibody Non-reactive (NonReactive) 07/17/18 20:48 Active Medications - Current Medications Current Medications: Generic Name Dose Route Start Last Admin Trade Name Freq PRN Reason Stop Dose Admin Acetaminophen 650 mg 07/16/18 20:34 Tylenol PO Q4H PRN Pain MILD(1-3)/Fever >100.5/SANCHEZ Albumin Human 12.5 gm 07/17/18 11:23 Alburx 25% (Albumin) IV JOSE PRN Hypotension Aspirin 325 mg 07/18/18 10:00 07/20/18 10:57 Aspirin PO 325 mg QDAY [facility]STINE Administration Atorvastatin Calcium 20 mg 07/16/18 22:00 07/19/18 22:13 Lipitor PO 20 mg QHS [facility]INE Administration Carvedilol 25 mg 07/16/18 22:00 07/20/18 10:58 Coreg PO 25 mg BID [facility]STINE Administration Ergocalciferol 50,000 unit 07/17/18 10:00 07/17/18 10:00 Vitamin D2 PO Not Given We [facility] Famotidine 10 mg 07/16/18 22:00 07/20/18 10:58 Pepcid PO 10 mg BID [facility]STINE Administration Hydroxyzine HCl 25 mg 07/16/18 23:00 07/19/18 22:22 Atarax PO 25 mg TID [facility]STINE Administration Sodium Chloride 100 mls @ 999 mls/hr 07/17/18 11:23 Nacl 0.9% IV JOSE PRN Hypotension Heparin Sodium/Sodium Chloride 25,000 unit in 500 mls @ 20 mls/hr 07/17/18 13:00 07/20/18 05:24 Heparin/ 0.45% Nacl-25,000 Unit/500 Ml IV 1,400 units/hr TITRATE [facility]RISTINE 28 mls/hr Administration Protocol 1,000 UNITS/HR Insulin Glargine 25 units 07/18/18 22:00 07/19/18 21:56 Lantus SUB-Q Not Given QHS [facility] Insulin Human Lispro 10 unit 07/18/18 15:32 07/20/18 10:59 Humalog SUB-Q Not Given ACHS [facility] Protocol Losartan Potassium 100 mg 07/16/18 21:00 07/20/18 10:57 Cozaar PO 100 mg QDAY [facility]STINE Administration Multivit/Ca Carb/B Cmplx/FA/Prenat 1 cap 07/16/18 21:00 07/20/18 10:57 Renal Caps PO 1 cap DAILY [facility] Administration Nifedipine 90 mg 07/16/18 22:00 07/19/18 22:13 Procardia Xl PO 90 mg QHS [facility] Administration Ondansetron HCl 4 mg 07/16/18 20:34 Zofran IV Q8H PRN Nausea And Vomiting Oxycodone/Acetaminophen 1 tab 07/16/18 20:34 07/18/18 20:16 Percocet 5/325 PO 1 tab Q6H PRN Administration Pain, Moderate (4-6) Sevelamer Carbonate 2,400 mg 07/17/18 08:00 07/20/18 10:57 Renvela PO 2,400 mg TIDWM [facility] Administration Sodium Chloride 10 ml 07/16/18 22:00 07/19/18 22:23 Sodium Chloride Flush Syringe 10 Ml IV 10 ml BID [facility]INE Administration Sodium Chloride 10 ml 07/16/18 20:58 Sodium Chloride Flush Syringe 10 Ml IV PRN PRN LINE FLUSH Topiramate 50 mg 07/16/18 22:00 07/20/18 10:57 Topamax PO 50 mg BID [facility]STINE Administration Venlafaxine HCl 37.5 mg 07/16/18 21:00 07/20/18 10:57 Effexor PO 37.5 mg QDAY [facility]STINE Administration
[2018-07-20] MEDS: SODIUM CHLORIDE FLUSH SYRINGE 10 ML IV SCH ×2 (17:54→22:32)
[2018-07-20] MEDS ORDERED: HEPARIN 10,000 UNITS/10 ML IV ONE ×3 (19:51→20:32)
[2018-07-20] MEDS: PROCARDIA XL PO SCH (22:30)
[2018-07-20] MEDS: LANTUS SUB-Q SCH (22:30)
[2018-07-21] MEDS: HEPARIN/ 0.45% NACL-25,000 UNIT/500 ML 25,000 UNIT/500 ML BAG IV SCH ×2 (03:46→21:10)
[2018-07-21] MEDS: RENVELA PO SCH ×5 (08:54→19:10)
[2018-07-21] MEDS: ATARAX PO SCH ×3 (09:02→21:10)
[2018-07-21] MEDS: HumaLOG SUB-Q SCH ×4 (09:03→21:09)
[2018-07-21 09:35] LABS: Hematocrit 31.8 % (35.5-45.6); Hemoglobin 10.5 gm/dl (11.8-15.2)
[2018-07-21] MEDS ORDERED: NACL 0.9% 100 ML IV PRN (09:40)
--- NOTE | 2018-07-21 09:40 | Progress Note ---
Assessment and Plan End Stage Renal Disease on HD: -No acute indication for HD today -HD tomorrow for UF and clearance after Cardiac Cath procedure -Assess need for HD on daily basis -On renvela for hyperphosphatemia management -Renal diet -Monitor I/O's -Renal plan d/w Dr Calhoun Chest Pain: - Cardiology on board, planning on cardiac cath on Sunday Hyponatremia: - Possibly due to hypervolemia - UF with HD - Effexor can also contribute toward hyponatremia, will continue to monitor - Fluid restriction of 1 liter per day - Monitor daily labs Slurred Speech: -Head CT negative -As per Attending Peripheral vascular disease: -Vascular surgery consulted, pt has significant arterial contribution and would benefit from revascularization once cardiac issues are addressed per Dr Belle note -Wound care Hypertension: -On Coreg and Losartan -Adjust regimen as needed Diabetes Mellitus type 2 on insulin: -On insulin as per primary Subjective Date of service: 07/21/18 Principal diagnosis: ESRD Interval history: Pt seen in bed, denies shortness of breath, no acute distress. No family at bedside Objective - Vital Signs Vital signs: Vital Signs - 12hr 07/21/18 07/21/18 07/21/18 01:36 03:59 08:11 Temperature 98.3 F 97.5 F L Pulse Rate 60 56 L Respiratory 20 18 Rate Blood Pressure 144/85 Blood Pressure 143/81 [Right] O2 Sat by Pulse 94 96 Oximetry 07/21/18 08:27 Temperature 97.9 F Pulse Rate 56 L Respiratory 16 Rate Blood Pressure 112/70 Blood Pressure [Right] O2 Sat by Pulse 92 Oximetry - General Appearance General appearance: well-developed EENT: ATNC Neck: no JVD Respiratory: Present: Decreased Breath Sounds Cardiology: regular, S1S2, other (ACCESS: Left AVF + thrill and bruit noted) Gastrointestinal: normoactive bowel sounds Integumentary: other (Bilateral lower extermity wounds with dressings in place) Neurologic: alert and oriented x3 Musculoskeletal: other (1+ edema to BLE) Psychiatric: cooperative - Lab 07/21/18 08:40 07/21/18 08:46 Most recent lab results Calcium 8.6 mg/dL (8.4-10.2) 07/20/18 06:22 Phosphorus 6.50 mg/dL (2.5-4.5) H 07/20/18 06:22 Medications & Allergies - Medications Allergies/Adverse Reactions: Allergies No Known Allergies Allergy (Unverified 07/16/18 16:37) Home Medications: Home Medications Medication Instructions Recorded Confirmed Last Taken Type AtorvaSTATin [Lipitor] 20 mg PO QHS 07/16/18 07/16/18 Unknown History Carvedilol [Coreg] 25 mg PO BID 07/16/18 07/16/18 Unknown History Ergocalciferol (Vitamin D2) 50,000 unit PO QWEEK 07/16/18 07/16/18 Unknown History [Drisdol] Gabapentin [Gralise] 300 mg PO QHS 07/16/18 07/16/18 Unknown History Losartan [Cozaar] 100 mg PO QDAY 07/16/18 07/16/18 Unknown History NIFEdipine [Nifedipine ER] 90 mg PO QHS 07/16/18 07/16/18 Unknown History Sevelamer Carbonate [Renvela] 2,400 mg PO TIDWM 07/16/18 07/16/18 Unknown History Topiramate [Topamax] 50 mg PO BID 07/16/18 07/16/18 Unknown History Venlafaxine [Effexor 37.5mg tab] 37.5 mg PO QDAY 07/16/18 07/16/18 Unknown History Vit B Comp C/Folic Acid/Vit D3 1 each PO DAILY 07/16/18 07/16/18 Unknown History [Dialyvite 800 Plus D Wafer] hydrOXYzine HCl [Hydroxyzine HCl] 25 mg PO TID 07/16/18 07/16/18 Unknown History Active Medications: Generic Name Dose Route Start Last Admin Trade Name Faustinoq PRN Reason Stop Dose Admin Acetaminophen 650 mg 07/16/18 20:34 Tylenol PO Q4H PRN Pain MILD(1-3)/Fever >100.5/SANCHEZ Albumin Human 12.5 gm 07/17/18 11:23 Alburx 25% (Albumin) IV JOSE PRN Hypotension Aspirin 325 mg 07/18/18 10:00 07/20/18 10:57 Aspirin PO 325 mg QDAY CHRISTINE Administration Atorvastatin Calcium 20 mg 07/16/18 22:00 07/20/18 22:29 Lipitor PO 20 mg QHS CHRISTINE Administration Carvedilol 25 mg 07/16/18 22:00 07/20/18 22:30 Coreg PO 25 mg BID CHRISTINE Administration Ergocalciferol 50,000 unit 07/17/18 10:00 07/17/18 10:00 Vitamin D2 PO Not Given We [facility] Famotidine 10 mg 07/16/18 22:00 07/20/18 22:29 Pepcid PO 10 mg BID CHRISTINE Administration Hydroxyzine HCl 25 mg 07/16/18 23:00 07/21/18 09:02 Atarax PO 25 mg TID CHRISTINE Administration Sodium Chloride 100 mls @ 999 mls/hr 07/17/18 11:23 Nacl 0.9% IV JOSE PRN Hypotension Heparin Sodium/Sodium Chloride 25,000 unit in 500 mls @ 20 mls/hr 07/17/18 13:00 07/21/18 03:46 Heparin/ 0.45% Nacl-25,000 Unit/500 Ml IV 1,700 units/hr TITRATE CHRISTINE 34 mls/hr Administration Protocol 1,000 UNITS/HR Insulin Glargine 25 units 07/18/18 22:00 07/20/18 22:30 Lantus SUB-Q 25 units QHS CHRISTINE Administration Insulin Human Lispro 10 unit 07/18/18 15:32 07/21/18 09:03 Humalog SUB-Q Not Given ACHS [facility] Protocol Losartan Potassium 100 mg 07/16/18 21:00 07/20/18 10:57 Cozaar PO 100 mg QDAY CHRISTINE Administration Multivit/Ca Carb/B Cmplx/FA/Prenat 1 cap 07/16/18 21:00 07/20/18 10:57 Renal Caps PO 1 cap DAILY CHRISTINE Administration Nifedipine 90 mg 07/16/18 22:00 07/20/18 22:30 Procardia Xl PO 90 mg QHS CHRISTINE Administration Ondansetron HCl 4 mg 07/16/18 20:34 Zofran IV Q8H PRN Nausea And Vomiting Oxycodone/Acetaminophen 1 tab 07/16/18 20:34 07/18/18 20:16 Percocet 5/325 PO 1 tab Q6H PRN Administration Pain, Moderate (4-6) Sevelamer Carbonate 2,400 mg 07/17/18 08:00 07/21/18 09:02 Renvela PO 2,400 mg TIDWM CHRISTINE Administration Sodium Chloride 10 ml 07/16/18 22:00 07/20/18 22:32 Sodium Chloride Flush Syringe 10 Ml IV 10 ml BID CHRISTINE Administration Sodium Chloride 10 ml 07/16/18 20:58 Sodium Chloride Flush Syringe 10 Ml IV PRN PRN LINE FLUSH Topiramate 50 mg 07/16/18 22:00 07/20/18 22:30 Topamax PO 50 mg BID CHRISTINE Administration Venlafaxine HCl 37.5 mg 07/16/18 21:00 07/20/18 10:57 Effexor PO 37.5 mg QDAY CHRISTINE Administration
[2018-07-21 09:43] LABS: Calcium 7.5 mg/dL (8.4-10.2)
[2018-07-21] MEDS: ASPIRIN PO SCH (11:12)
[2018-07-21] MEDS: COZAAR PO SCH (11:12)
[2018-07-21] MEDS: Renal Caps PO SCH (11:12)
[2018-07-21] MEDS: COREG PO SCH ×2 (11:12→21:10)
[2018-07-21] MEDS: PEPCID PO SCH ×2 (11:13→21:08)
[2018-07-21] MEDS: EFFEXOR PO SCH (11:13)
[2018-07-21] MEDS: TOPAMAX PO SCH ×2 (11:13→21:08)
--- NOTE | 2018-07-21 11:40 | Progress Note ---
Assessment and Plan Patient has aortic stenosis and left ventricular systolic dysfunction as well as renal failure. Plan is to obtain cardiac catheterization for further cardiac evaluation and further assessment of the aortic valve tomorrow. This is explained to the patient again. 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 Objective Vital Signs Temp Pulse Resp BP BP Pulse Ox 07/21/18 08:27 97.9 F 56 L 16 112/70 92 07/21/18 08:11 56 L 07/21/18 03:59 97.5 F L 60 18 144/85 96 07/21/18 01:36 98.3 F 20 143/81 94 07/20/18 18:09 98.1 F 62 18 126/77 95 07/20/18 16:00 64 - Physical Examination General: No Apparent Distress HEENT: Positive: PERRL, Normocephaly, Mucus Membranes Moist Neck: Positive: neck supple, trachea midline Cardiac: Positive: Reg Rate and Rhythm, Systolic Murmur (grade 2 to 3/6 ejection systolic murmur is present.) Lungs: Positive: clear to auscultation Neuro: Positive: Grossly Intact Abdomen: Positive: Soft. Negative: Tender Skin: Positive: Other (bilateral foot wounds in dressings ) Extremities: Present: normal, Other (bilateral foot wounds covered with dressings ) - Labs and Meds CBC 07/21/18 Range/Units 08:40 Hgb 10.5 L (11.8-15.2) gm/dl Hct 31.8 L (35.5-45.6) % Plt Count 116 L (140-440) K/mm3 Comprehensive Metabolic Panel 07/21/18 Range/Units 08:46 Sodium 129 L D (137-145) mmol/L Potassium 5.0 (3.6-5.0) mmol/L Chloride 90.2 L (98-107) mmol/L Carbon Dioxide 21 L (22-30) mmol/L BUN 63 H (9-20) mg/dL Creatinine 7.5 H (0.8-1.5) mg/dL Glucose 55 L (75-100) mg/dL Calcium 7.5 L (8.4-10.2) mg/dL - Imaging and Cardiology EKG: report reviewed, image reviewed Echo: pending - EKG Sinus rhythms and dysrhythmias: sinus rhythm Chamber hypertrophy or enlargement: left ventricular hypertro Myocardial infarction: inferior ME (old age inde
--- NOTE | 2018-07-21 12:36 | Progress Note ---
Assessment and Plan Assessment and plan: (1) Chest pain, NSTEMI - On heparin drip - Troponins were negative - Stress test is negative - Echo was done and ejection fraction was 40-45%, with severe aortic stenosis - Patient will have cardiac cath on Sunday PVD - Arterial Doppler was done and showed obstruction of bilateral lower extremity arteries - Vascular consulted and said will do revasularization after his cardiac issue is taken care of (2) ESRD needing dialysis - Nephrology consulted and will continue with dialysis (3) Type 2 diabetes mellitus - Well controlled - Hemoglobin A1c is 10.5 - Sliding-scale insulin, Lantus 25 units daily at bedtime and Humalog 10 units TID - Accu-Chek, ADA diet, monitoring and adjust as needed (4) Slurred speech - Patient said he went [place] when he has slurred speech and told has TIA but no workup was done - CT head was done and negative, no further workup needed (5) Hypertension - Continue antihypertensives - Controlled (6) Hyperlipidemia Continue statins (7) left foot and leg ulcer - Evaluated by Dr Toney and recommend wound care - Will follow the Arterial doppler and was done (8) Peripheral neuropathy Continue gabapentin (9) Depression Continue Effexor 37.5 mg daily (10) Vitamin D deficiency Continue vitamin D per schedule (11) DVT prophylaxis On heparin and GI prophylaxis History Interval history: Patient was seen and evaluated this morning, patient said he is getting better. No new complaints. Hospitalist Physical - Physical exam Narrative exam: Not in cardiopulmonary distress. The patient appeared well nourished and normally developed. Vital signs as documented. Head exam is unremarkable. No scleral icterus . Neck is without jugular venous distension, thyromegaly, or carotid bruits. Lungs are clear to auscultation. Cardiac exam reveals regular rate and Rhythm. First and second heart sounds normal. No murmurs, rubs or gallops. Abdominal exam reveals normal bowel sounds, no masses, no organomegaly and no aortic enlargement. Extremities bliateral cronic LE swelling and ulcer on the left leg and foot. 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 No focal weakness. - Constitutional Vitals: Temp Pulse Resp BP Pulse Ox 97.9 F 56 L 16 112/70 92 07/21/18 08:27 07/21/18 08:27 07/21/18 08:27 07/21/18 08:27 07/21/18 08:27 General appearance: Present: no acute distress Results - Labs CBC & Chem 7: 07/21/18 08:40 07/21/18 08:46 Labs: Laboratory Last Values WBC 7.2 K/mm3 (4.5-11.0) 07/18/18 04:55 RBC 3.50 M/mm3 (3.65-5.03) L 07/18/18 04:55 Hgb 10.5 gm/dl (11.8-15.2) L 07/21/18 08:40 Hct 31.8 % (35.5-45.6) L 07/21/18 08:40 MCV 95 fl (84-94) H 07/18/18 04:55 MCH 31 pg (28-32) 07/18/18 04:55 MCHC 33 % (32-34) 07/18/18 04:55 RDW 16.7 % (13.2-15.2) H 07/18/18 04:55 Plt Count 116 K/mm3 (140-440) L 07/21/18 08:40 Lymph % (Auto) 18.2 % (13.4-35.0) 07/18/18 04:55 [place] % (Auto) 9.6 % (0.0-7.3) H 07/18/18 04:55 Eos % (Auto) 4.2 % (0.0-4.3) 07/18/18 04:55 Baso % (Auto) 0.7 % (0.0-1.8) 07/18/18 04:55 Lymph # 1.3 K/mm3 (1.2-5.4) 07/18/18 04:55 [place] # 0.7 K/mm3 (0.0-0.8) 07/18/18 04:55 Eos # 0.3 K/mm3 (0.0-0.4) 07/18/18 04:55 Baso # 0.1 K/mm3 (0.0-0.1) 07/18/18 04:55 Seg Neutrophils % 67.3 % (40.0-70.0) 07/18/18 04:55 Seg Neutrophils # 4.8 K/mm3 (1.8-7.7) 07/18/18 04:55 PT 15.9 Sec. (12.2-14.9) H 07/17/18 12:52 INR 1.19 (0.87-1.13) H 07/17/18 12:52 APTT 32.6 Sec. (24.2-36.6) 07/17/18 12:52 D-Dimer 473.16 ng/mlDDU (0-234) H 07/16/18 15:23 Heparin Anti-Xa Level > 2.00 U.I./ml (0.3-0.7) H 07/21/18 08:46 Sodium 129 mmol/L (137-145) L D 07/21/18 08:46 Potassium 5.0 mmol/L (3.6-5.0) 07/21/18 08:46 Chloride 90.2 mmol/L (98-107) L 07/21/18 08:46 Carbon Dioxide 21 mmol/L (22-30) L 07/21/18 08:46 Anion Gap 23 mmol/L 07/21/18 08:46 BUN 63 mg/dL (9-20) H 07/21/18 08:46 Creatinine 7.5 mg/dL (0.8-1.5) H 07/21/18 08:46 Estimated GFR 10 ml/min 07/21/18 08:46 BUN/Creatinine Ratio 8 % 07/21/18 08:46 Glucose 55 mg/dL (75-100) L 07/21/18 08:46 POC Glucose 104 (70-105) 07/21/18 11:48 Hemoglobin A1c 10.9 % (4-6) H 07/16/18 21:16 Calcium 7.5 mg/dL (8.4-10.2) L 07/21/18 08:46 Phosphorus 6.90 mg/dL (2.5-4.5) H 07/21/18 08:46 Total Bilirubin 0.50 mg/dL (0.1-1.2) 07/18/18 04:55 AST 34 units/L (5-40) 07/18/18 04:55 ALT 48 units/L (7-56) 07/18/18 04:55 Alkaline Phosphatase 275 units/L (35-129) H 07/18/18 04:55 Troponin T 1.080 ng/mL (0.00-0.029) H* 07/17/18 05:58 Total Protein 7.8 g/dL (6.3-8.2) 07/18/18 04:55 Albumin 2.9 g/dL (3.9-5) L 07/18/18 04:55 Albumin/Globulin Ratio 0.6 % 07/18/18 04:55 Triglycerides 36 mg/dL (2-149) 07/16/18 12:16 Cholesterol 91 mg/dL (50-199) 07/16/18 12:16 LDL Cholesterol Direct 50 mg/dL (50-130) 07/16/18 12:16 HDL Cholesterol 44 mg/dL (40-59) 07/16/18 12:16 Cholesterol/HDL Ratio 2.06 % 07/16/18 12:16 Hepatitis A IgM Ab Non-reactive (NonReactive) 07/17/18 20:48 Hep Bs Antigen Non-reactive (Negative) 07/17/18 20:48 Hep B Core IgM Ab Non-reactive (NonReactive) 07/17/18 20:48 Hepatitis C Antibody Non-reactive (NonReactive) 07/17/18 20:48 Active Medications - Current Medications Current Medications: Generic Name Dose Route Start Last Admin Trade Name Freq PRN Reason Stop Dose Admin Acetaminophen 650 mg 07/16/18 20:34 Tylenol PO Q4H PRN Pain MILD(1-3)/Fever >100.5/SANCHEZ Albumin Human 12.5 gm 07/17/18 11:23 Alburx 25% (Albumin) IV JOSE PRN Hypotension Aspirin 325 mg 07/18/18 10:00 07/21/18 11:12 Aspirin PO 325 mg QDAY CHRISTINE Administration Atorvastatin Calcium 20 mg 07/16/18 22:00 07/20/18 22:29 Lipitor PO 20 mg QHS CHRISTINE Administration Carvedilol 25 mg 07/16/18 22:00 07/21/18 11:12 Coreg PO 25 mg BID CHRISTINE Administration Ergocalciferol 50,000 unit 07/17/18 10:00 07/17/18 10:00 Vitamin D2 PO Not Given We [facility] Famotidine 10 mg 07/16/18 22:00 07/21/18 11:13 Pepcid PO 10 mg BID CHRISTINE Administration Hydroxyzine HCl 25 mg 07/16/18 23:00 07/21/18 09:02 Atarax PO 25 mg TID CHRISTINE Administration Heparin Sodium/Sodium Chloride 25,000 unit in 500 mls @ 20 mls/hr 07/17/18 13:00 07/21/18 11:20 Heparin/ 0.45% Nacl-25,000 Unit/500 Ml IV 1,500 units/hr TITRATE CHRISTINE 30 mls/hr Titration Protocol 1,000 UNITS/HR Sodium Chloride 100 mls @ 999 mls/hr 07/21/18 09:40 Nacl 0.9% IV JOSE PRN Hypotension Insulin Glargine 25 units 07/18/18 22:00 07/20/18 22:30 Lantus SUB-Q 25 units QHS CHRISTINE Administration Insulin Human Lispro 10 unit 07/18/18 15:32 07/21/18 09:03 Humalog SUB-Q Not Given ACHS CHRISTINE Protocol Losartan Potassium 100 mg 07/16/18 21:00 07/21/18 11:12 Cozaar PO 100 mg QDAY CHRISTINE Administration Multivit/Ca Carb/B Cmplx/FA/Prenat 1 cap 07/16/18 21:00 07/21/18 11:12 Renal Caps PO 1 cap DAILY CHRISTINE Administration Nifedipine 90 mg 07/16/18 22:00 07/20/18 22:30 Procardia Xl PO 90 mg QHS CHRISTINE Administration Ondansetron HCl 4 mg 07/16/18 20:34 Zofran IV Q8H PRN Nausea And Vomiting Oxycodone/Acetaminophen 1 tab 07/16/18 20:34 07/18/18 20:16 Percocet 5/325 PO 1 tab Q6H PRN Administration Pain, Moderate (4-6) Sevelamer Carbonate 2,400 mg 07/17/18 08:00 07/21/18 09:02 Renvela PO 2,400 mg TIDWM CHRISTINE Administration Sodium Chloride 10 ml 07/16/18 22:00 07/20/18 22:32 Sodium Chloride Flush Syringe 10 Ml IV 10 ml BID CHRISTINE Administration Sodium Chloride 10 ml 07/16/18 20:58 Sodium Chloride Flush Syringe 10 Ml IV PRN PRN LINE FLUSH Topiramate 50 mg 07/16/18 22:00 07/21/18 11:13 Topamax PO 50 mg BID CHRISTINE Administration Venlafaxine HCl 37.5 mg 07/16/18 21:00 07/21/18 11:13 Effexor PO 37.5 mg QDAY CHRISTINE Administration
[2018-07-21] MEDS: SODIUM CHLORIDE FLUSH SYRINGE 10 ML IV SCH ×2 (17:47→21:09)
[2018-07-21] MEDS: PROCARDIA XL PO SCH (21:08)
[2018-07-21] MEDS: LANTUS SUB-Q SCH (21:09)
[2018-07-22 06:05] LABS: Hemoglobin 10.9 gm/dl (11.8-15.2); Mean Corpuscular HGB Conc 33 % (32-34); Mean Corpuscular Volume 94 fl (84-94); Platelet Count 125 K/mm3 (140-440); Red Blood Count 3.52 M/mm3 (3.65-5.03); Red Cell Distribution Width 16.1 % (13.2-15.2)
[2018-07-22 06:23] LABS: Calcium 8.3 mg/dL (8.4-10.2)
[2018-07-22] MEDS ORDERED: D50W (25GM) Vial IV PRN (06:38)
[2018-07-22] MEDS: HumaLOG SUB-Q SCH ×3 (07:43→23:03)
[2018-07-22] MEDS: ATARAX PO SCH ×2 (08:00→20:30)
[2018-07-22] MEDS: RENVELA PO SCH ×2 (08:00→12:00)
--- NOTE | 2018-07-22 09:13 | Progress Note ---
Assessment and Plan End Stage Renal Disease on HD: -HD STAT today for UF and clearance -Assess need for HD on daily basis -On renvela for hyperphosphatemia management -Renal diet -Monitor I/O's Chest Pain: - Cardiology on board, planning on cardiac cath today Hyponatremia: - fluid restriction Slurred Speech: -Head CT negative -As per Attending Peripheral vascular disease: -Vascular surgery consulted, pt has significant arterial contribution and would benefit from revascularization once cardiac issues are addressed per Dr Belle note -Wound care Hypertension: -On Coreg and Losartan -Adjust regimen as needed Diabetes Mellitus type 2 on insulin: -On insulin as per primary Subjective Date of service: 07/22/18 Principal diagnosis: ESRD 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 Objective - Vital Signs Vital signs: Vital Signs - 12hr 07/21/18 07/22/18 07/22/18 23:47 04:11 07:24 Temperature 97.3 F L 97.6 F 97.9 F Pulse Rate 55 L 56 L 56 L Respiratory 16 18 20 Rate Blood Pressure 141/84 134/77 142/85 O2 Sat by Pulse 98 94 97 Oximetry - Lab 07/22/18 05:35 07/22/18 06:50 Most recent lab results Calcium 8.3 mg/dL (8.4-10.2) L 07/22/18 05:28 Phosphorus 8.90 mg/dL (2.5-4.5) H D 07/22/18 05:28 Medications & Allergies - Medications Allergies/Adverse Reactions: Allergies No Known Allergies Allergy (Unverified 07/16/18 16:37) Home Medications: Home Medications Medication Instructions Recorded Confirmed Last Taken Type AtorvaSTATin [Lipitor] 20 mg PO QHS 07/16/18 07/16/18 Unknown History Carvedilol [Coreg] 25 mg PO BID 07/16/18 07/16/18 Unknown History Ergocalciferol (Vitamin D2) 50,000 unit PO QWEEK 07/16/18 07/16/18 Unknown History [Drisdol] Gabapentin [Gralise] 300 mg PO QHS 07/16/18 07/16/18 Unknown History Losartan [Cozaar] 100 mg PO QDAY 07/16/18 07/16/18 Unknown History NIFEdipine [Nifedipine ER] 90 mg PO QHS 07/16/18 07/16/18 Unknown History Sevelamer Carbonate [Renvela] 2,400 mg PO TIDWM 07/16/18 07/16/18 Unknown History Topiramate [Topamax] 50 mg PO BID 07/16/18 07/16/18 Unknown History Venlafaxine [Effexor 37.5mg tab] 37.5 mg PO QDAY 07/16/18 07/16/18 Unknown History Vit B Comp C/Folic Acid/Vit D3 1 each PO DAILY 07/16/18 07/16/18 Unknown History [Dialyvite 800 Plus D Wafer] hydrOXYzine HCl [Hydroxyzine HCl] 25 mg PO TID 07/16/18 07/16/18 Unknown History Active Medications: Generic Name Dose Route Start Last Admin Trade Name Freq PRN Reason Stop Dose Admin Acetaminophen 650 mg 07/16/18 20:34 Tylenol PO Q4H PRN Pain MILD(1-3)/Fever >100.5/SANCHEZ Albumin Human 12.5 gm 07/17/18 11:23 Alburx 25% (Albumin) IV JOSE PRN Hypotension Aspirin 325 mg 07/18/18 10:00 07/21/18 11:12 Aspirin PO 325 mg QDAY CHRISTINE Administration Atorvastatin Calcium 20 mg 07/16/18 22:00 07/21/18 21:08 Lipitor PO 20 mg QHS CHRISTINE Administration Carvedilol 25 mg 07/16/18 22:00 07/21/18 21:10 Coreg PO Not Given BID CHRISTINE Dextrose 50 gm 07/22/18 06:38 07/22/18 07:02 D50w (25gm) Vial IV 50 gm PRN PRN Administration Hypoglycemia Ergocalciferol 50,000 unit 07/17/18 10:00 07/17/18 10:00 Vitamin D2 PO Not Given We CHRISTINE Famotidine 10 mg 07/16/18 22:00 07/21/18 21:08 Pepcid PO 10 mg BID CHRISTINE Administration Hydroxyzine HCl 25 mg 07/16/18 23:00 07/21/18 21:10 Atarax PO Not Given TID CHRISTINE Heparin Sodium/Sodium Chloride 25,000 unit in 500 mls @ 20 mls/hr 07/17/18 13:00 07/22/18 06:48 Heparin/ 0.45% Nacl-25,000 Unit/500 Ml IV 1,400 units/hr TITRATE CHRISTINE 28 mls/hr Titration Protocol 1,000 UNITS/HR Sodium Chloride 100 mls @ 999 mls/hr 07/21/18 09:40 Nacl 0.9% IV JOSE PRN Hypotension Insulin Glargine 25 units 07/18/18 22:00 07/21/18 21:09 Lantus SUB-Q Not Given QHS CHRISTINE Insulin Human Lispro 10 unit 07/18/18 15:32 07/22/18 07:43 Humalog SUB-Q Not Given ACHS [facility] Protocol Losartan Potassium 100 mg 07/16/18 21:00 07/21/18 11:12 Cozaar PO 100 mg QDAY CHRISTINE Administration Multivit/Ca Carb/B Cmplx/FA/Prenat 1 cap 07/16/18 21:00 07/21/18 11:12 Renal Caps PO 1 cap DAILY CHRISTINE Administration Nifedipine 90 mg 07/16/18 22:00 07/21/18 21:08 Procardia Xl PO 90 mg QHS CHRISTINE Administration Ondansetron HCl 4 mg 07/16/18 20:34 Zofran IV Q8H PRN Nausea And Vomiting Oxycodone/Acetaminophen 1 tab 07/16/18 20:34 07/18/18 20:16 Percocet 5/325 PO 1 tab Q6H PRN Administration Pain, Moderate (4-6) Sevelamer Carbonate 2,400 mg 07/17/18 08:00 07/21/18 19:10 Renvela PO Not Given TIDWM CHRISTINE Sodium Chloride 10 ml 07/16/18 22:00 07/21/18 21:09 Sodium Chloride Flush Syringe 10 Ml IV 10 ml BID CHRISTINE Administration Sodium Chloride 10 ml 07/16/18 20:58 Sodium Chloride Flush Syringe 10 Ml IV PRN PRN LINE FLUSH Topiramate 50 mg 07/16/18 22:00 07/21/18 21:08 Topamax PO 50 mg BID CHRISTINE Administration Venlafaxine HCl 37.5 mg 07/16/18 21:00 07/21/18 11:13 Effexor PO 37.5 mg QDAY CHRISTINE Administration
[2018-07-22] MEDS: TOPAMAX PO SCH ×2 (10:00→22:57)
[2018-07-22] MEDS: COZAAR PO SCH (10:00)
[2018-07-22] MEDS: EFFEXOR PO SCH (10:00)
[2018-07-22] MEDS: PEPCID PO SCH ×2 (10:00→22:58)
[2018-07-22] MEDS: COREG PO SCH ×2 (10:00→22:58)
[2018-07-22] MEDS: Renal Caps PO SCH (10:00)
[2018-07-22] MEDS ORDERED: XYLOCAINE 2% INFILTRATI ONE (11:22)
[2018-07-22] MEDS ORDERED: CALAN ONE (11:22)
[2018-07-22] MEDS ORDERED: HEPARIN/NS 5000 UNIT/500ML(CATH LAB) 1,000 ML IR ONE (11:22)
[2018-07-22] MEDS ORDERED: HEPARIN 10,000 UNITS/10 ML ONE (11:22)
[2018-07-22] MEDS ORDERED: NITROGLYCERIN SYRINGE 3 ML ONE (11:23)
[2018-07-22] MEDS ORDERED: SUBLIMAZE ONE (11:23)
[2018-07-22] MEDS ORDERED: VERSED ONE (11:23)
[2018-07-22] MEDS ORDERED: NACL 0.9% 500 ML 500 ML ONE (11:56)
[2018-07-22] MEDS ORDERED: PLAVIX ONE (12:45)
--- NOTE | 2018-07-22 12:53 | Progress Note ---
Assessment and Plan pt has normal coronaries and normal lv function with moderate aortic stenosis, improvement from echo of 40-45%, treat medically, add plavix for pvd and cont asa, statin and coreg, arb as per renal, suggest HD today post cath, discuss with mother, pt will now followup up localy, for Cards and renal, , [facility]. - Patient Problems (1) Acute diastolic CHF (congestive heart failure), NYHA class 4 Current Visit: Yes Status: Acute (2) Aortic stenosis Current Visit: Yes Status: Acute Qualifiers: Cardiac valve disease etiology: nonrheumatic Qualified Code(s): I35.0 - Nonrheumatic aortic (valve) stenosis (3) NSTEMI (non-ST elevated myocardial infarction) Current Visit: Yes Status: Acute Plan to address problem: type 2 (4) ESRD needing dialysis Current Visit: Yes Status: Chronic (5) Hyperlipidemia Current Visit: Yes Status: Chronic Qualifiers: Hyperlipidemia type: mixed hyperlipidemia Qualified Code(s): E78.2 - Mixed hyperlipidemia (6) Hypertension Current Visit: Yes Status: Chronic Qualifiers: Hypertension type: essential hypertension Qualified Code(s): I10 - Essent ial (primary) hypertension (7) PVD (peripheral vascular disease) Current Visit: Yes Status: Chronic (8) Type 2 diabetes mellitus Current Visit: Yes Status: Chronic Qualifiers: Diabetes mellitus terminal operator insulin use: without terminal operator use Diabetes mellitus complication status: with circulatory complication Diabetes mellitus complication detail: with peripheral angiopathy without gangrene Qualified Code(s): E11.51 - Type 2 diabetes mellitus with diabetic peripheral angiopathy without gangrene Subjective Date of service: 07/22/18 Principal diagnosis: ESRD Interval history: pt has no more chest pressure Objective Vital Signs Temp Pulse Resp BP BP Pulse Ox 07/22/18 11:00 56 L 07/22/18 07:24 97.9 F 56 L 20 142/85 97 07/22/18 04:11 97.6 F 56 L 18 134/77 94 07/21/18 23:47 97.3 F L 55 L 16 141/84 98 07/21/18 21:10 53 L 07/21/18 19:32 97.4 F L 53 L 20 144/81 99 07/21/18 19:00 53 L 07/21/18 16:00 66 07/21/18 15:54 97.5 F L 51 L 16 110/74 95 - Physical Examination General: No Apparent Distress HEENT: Positive: PERRL, Normocephaly, Mucus Membranes Moist Neck: Positive: neck supple, trachea midline Cardiac: Positive: Audible Murmur Lungs: Positive: clear to auscultation Neuro: Positive: Grossly Intact Abdomen: Positive: Soft. Negative: Tender Skin: Positive: Other (bilateral foot wounds in dressings ) Extremities: Present: normal, +2 Edema, Other (bilateral foot wounds covered with dressings ) - Labs and Meds Coagulation 07/22/18 Range/Units 05:28 APTT 38.0 H (24.2-36.6) Sec. CBC 07/22/18 Range/Units 05:35 WBC 9.3 (4.5-11.0) K/mm3 RBC 3.52 L (3.65-5.03) M/mm3 Hgb 10.9 L (11.8-15.2) gm/dl Hct 33.0 L (35.5-45.6) % Plt Count 125 L (140-440) K/mm3 Comprehensive Metabolic Panel 07/22/18 07/22/18 Range/Units 05:28 06:50 Sodium 136 L D (137-145) mmol/L Potassium 6.2 H* D (3.6-5.0) mmol/L Chloride 94.2 L (98-107) mmol/L Carbon Dioxide 23 (22-30) mmol/L BUN 75 H (9-20) mg/dL Creatinine 9.0 H (0.8-1.5) mg/dL Glucose 83 79 (75-100) mg/dL Calcium 8.3 L (8.4-10.2) mg/dL - Imaging and Cardiology EKG: report reviewed, image reviewed Cardiac cath: report reviewed (normal coronaries and moderate aortic stenosis mean gradient 22 mm hg and normal lv function ) - Telemetry EKG Rhythm: Sinus Bradycardia - EKG Sinus rhythms and dysrhythmias: sinus rhythm Chamber hypertrophy or enlargement: left ventricular hypertro Myocardial infarction: inferior AL (old age inde
[2018-07-22] MEDS ORDERED: ALUM-MAG HYDROX-SIMETH 200-200-20MG/5ML ONE (12:57)
[2018-07-22] MEDS ORDERED: DOBUTAMINE Stress 100 MG in D5W 75 ML IV SCH (13:00)
--- NOTE | 2018-07-22 13:29 | Cardiac Catherization Report ---
LEFT HEART CATHETERIZATION PROCEDURE DONE BY: Valente Case MD CLINICAL INFORMATION: This is a 47-year-old -[place] gentleman who is blind, end-stage renal disease on hemodialysis, peripheral vascular disease, below the knee disease, presents to the hospital with shortness of breath and with non-ST elevation myocardial infarction type 2. Echocardiogram shows mild LV dysfunction with severe aortic stenosis with a valve area of 0.8, so left heart catheterization was done under moderate sedation. Total sedation time was 26 minutes, started at 12:05 p.m., finished at 12:31 p.m.; 0.5 mg Versed and 25 mcg of fentanyl. DESCRIPTION OF PROCEDURE: 1. Left heart catheterization was performed in the right femoral artery with sterile technique, local anesthesia, done the fluoroscopy puncture at the right common femoral artery, 6-Scottish groin sheath sewn in. 2. Left system and JL4 catheter, left main is large and patent, bifurcates into large LAD and is patent from proximally and distally. Diagonal 1 is a medium caliber vessel, it is patent. Diagonal 2 is small caliber vessel, it is patent. Circumflex is a dominant vessel, large caliber and AV groove is patent, goes to a medium caliber PDA that is patent. Ramus is a medium caliber vessel, it is patent. OM1 is a medium caliber vessel, patent. RCA is a small nondominant vessel with a JR4 catheter. 3. Able to cross the aortic valve with difficulty with an AR and a Bentson wire and the patient has normal LV function with an LVEDP of 27 mmHg, LV was 153/13 and aortic is 127/58. The patient had a mean gradient of 22 mmHg with the highest peak gradient of 53 mmHg, so which represents moderate aortic stenosis. The patient's catheters were removed over a guidewire. I used a Wetmore catheter for the aortic stenosis. 4. The 6-Scottish groin sheath was taken out, manual pressure held. No hematoma, no bleeding. SUMMARY: 1. Patent coronaries, left dominant system, RCA is small nondominant large epicardial vessels. Left main is patent, LAD patent, circumflex is patent, ramus patent, OM1 patent, LPDA patent. 2. Normal LV function with moderate aortic stenosis, mean gradient is 20 mmHg. 3. Treat the patient medically, discussed this in detail with the patient and the patient's mother. JOB# [id number] BERT/STEPHANIE LARA
--- NOTE | 2018-07-22 18:23 | Progress Note ---
Assessment and Plan Assessment and plan: (1) Chest pain, NSTEMI - cardiac cath today - Troponins were negative - Stress test is negative - Echo was done and ejection fraction was 40-45%, with severe aortic stenosis - Discussed with cardiology :pt has normal coronaries and normal lv function with moderate aortic stenosis, improvement from echo of 40-45%, treat medically, add plavix for pvd and cont asa, statin and coreg, arb as per renal, discuss with mother, pt will now followup up localy, for Cards and renal, , [facility] PVD - Arterial Doppler was done and showed obstruction of bilateral lower extremity arteries - Vascular consulted and said will do revasularization after his cardiac issue is taken care of (2) ESRD needing dialysis - Nephrology consulted and will continue with dialysis (3) Type 2 diabetes mellitus - Well controlled - Hemoglobin A1c is 10.5 - Sliding-scale insulin, Lantus 25 units daily at bedtime and Humalog 10 units TID - Accu-Chek, ADA diet, monitoring and adjust as needed (4) Slurred speech - Patient said he went [place] when he has slurred speech and told has TIA but no workup was done - CT head was done and negative, no further workup needed (5) Hypertension - Continue antihypertensives - Controlled (6) Hyperlipidemia Continue statins (7) left foot and leg ulcer - Evaluated by Dr Toney and recommend wound care - Will follow the Arterial doppler and was done (8) Peripheral neuropathy Continue gabapentin (9) Depression Continue Effexor 37.5 mg daily (10) Vitamin D deficiency Continue vitamin D per schedule (11) DVT prophylaxis On heparin and GI prophylaxis Plan discharge for AM History Interval history: Patient seen and examined, no new complaints. Had Cardiac Hospitalist Physical - Physical exam Narrative exam: Not in cardiopulmonary distress. The patient appeared well nourished and normally developed. Vital signs as documented. Head exam is unremarkable. No scleral icterus . Neck is without jugular venous distension, thyromegaly, or carotid bruits. Lungs are clear to auscultation. Cardiac exam reveals regular rate and Rhythm. First and second heart sounds normal. No murmurs, rubs or gallops. Abdominal exam reveals normal bowel sounds, no masses, no organomegaly and no aortic enlargement. Extremities bliateral cronic LE swelling and ulcer on the left leg and foot. PEACH GROWER: Alert and oriented 3. No focal weakness. - Constitutional Vitals: Temp Pulse Resp BP Pulse Ox 98.0 F 62 18 148/76 100 07/22/18 15:00 07/22/18 17:15 07/22/18 15:00 07/22/18 17:15 07/22/18 13:55 General appearance: Present: no acute distress Results - Labs CBC & Chem 7: 07/23/18 06:36 07/23/18 06:36 Labs: Laboratory Last Values WBC 9.3 K/mm3 (4.5-11.0) 07/22/18 05:35 RBC 3.52 M/mm3 (3.65-5.03) L 07/22/18 05:35 Hgb 10.9 gm/dl (11.8-15.2) L 07/22/18 05:35 Hct 33.0 % (35.5-45.6) L 07/22/18 05:35 MCV 94 fl (84-94) 07/22/18 05:35 MCH 31 pg (28-32) 07/22/18 05:35 MCHC 33 % (32-34) 07/22/18 05:35 RDW 16.1 % (13.2-15.2) H 07/22/18 05:35 Plt Count 125 K/mm3 (140-440) L 07/22/18 05:35 Lymph % (Auto) 18.2 % (13.4-35.0) 07/18/18 04:55 [place] % (Auto) 9.6 % (0.0-7.3) H 07/18/18 04:55 Eos % (Auto) 4.2 % (0.0-4.3) 07/18/18 04:55 Baso % (Auto) 0.7 % (0.0-1.8) 07/18/18 04:55 Lymph # 1.3 K/mm3 (1.2-5.4) 07/18/18 04:55 [place] # 0.7 K/mm3 (0.0-0.8) 07/18/18 04:55 Eos # 0.3 K/mm3 (0.0-0.4) 07/18/18 04:55 Baso # 0.1 K/mm3 (0.0-0.1) 07/18/18 04:55 Seg Neutrophils % 67.3 % (40.0-70.0) 07/18/18 04:55 Seg Neutrophils # 4.8 K/mm3 (1.8-7.7) 07/18/18 04:55 PT 15.9 Sec. (12.2-14.9) H 07/17/18 12:52 INR 1.19 (0.87-1.13) H 07/17/18 12:52 APTT 38.0 Sec. (24.2-36.6) H 07/22/18 05:28 D-Dimer 473.16 ng/mlDDU (0-234) H 07/16/18 15:23 Heparin Anti-Xa Level 0.29 U.I./ml (0.3-0.7) L 07/22/18 05:28 Sodium 136 mmol/L (137-145) L D 07/22/18 05:28 Potassium 6.2 mmol/L (3.6-5.0) H* D 07/22/18 05:28 Chloride 94.2 mmol/L (98-107) L 07/22/18 05:28 Carbon Dioxide 23 mmol/L (22-30) 07/22/18 05:28 Anion Gap 25 mmol/L 07/22/18 05:28 BUN 75 mg/dL (9-20) H 07/22/18 05:28 Creatinine 9.0 mg/dL (0.8-1.5) H 07/22/18 05:28 Estimated GFR 8 ml/min 07/22/18 05:28 BUN/Creatinine Ratio 8 % 07/22/18 05:28 Glucose 79 mg/dL (75-100) 07/22/18 06:50 POC Glucose 99 (70-105) 07/22/18 07:39 Hemoglobin A1c 10.9 % (4-6) H 07/16/18 21:16 Calcium 8.3 mg/dL (8.4-10.2) L 07/22/18 05:28 Phosphorus 8.90 mg/dL (2.5-4.5) H D 07/22/18 05:28 Total Bilirubin 0.50 mg/dL (0.1-1.2) 07/18/18 04:55 AST 34 units/L (5-40) 07/18/18 04:55 ALT 48 units/L (7-56) 07/18/18 04:55 Alkaline Phosphatase 275 units/L (35-129) H 07/18/18 04:55 Troponin T 1.080 ng/mL (0.00-0.029) H* 07/17/18 05:58 Total Protein 7.8 g/dL (6.3-8.2) 07/18/18 04:55 Albumin 2.9 g/dL (3.9-5) L 07/18/18 04:55 Albumin/Globulin Ratio 0.6 % 07/18/18 04:55 Triglycerides 36 mg/dL (2-149) 07/16/18 12:16 Cholesterol 91 mg/dL (50-199) 07/16/18 12:16 LDL Cholesterol Direct 50 mg/dL (50-130) 07/16/18 12:16 HDL Cholesterol 44 mg/dL (40-59) 07/16/18 12:16 Cholesterol/HDL Ratio 2.06 % 07/16/18 12:16 Hepatitis A IgM Ab Non-reactive (NonReactive) 07/17/18 20:48 Hep Bs Antigen Non-reactive (Negative) 07/17/18 20:48 Hep B Core IgM Ab Non-reactive (NonReactive) 07/17/18 20:48 Hepatitis C Antibody Non-reactive (NonReactive) 07/17/18 20:48 Active Medications - Current Medications Current Medications: Generic Name Dose Route Start Last Admin Trade Name Freq PRN Reason Stop Dose Admin Acetaminophen 650 mg 07/16/18 20:34 Tylenol PO Q4H PRN Pain MILD(1-3)/Fever >100.5/SANCHEZ Albumin Human 12.5 gm 07/17/18 11:23 Alburx 25% (Albumin) IV JOSE PRN Hypotension Aspirin 81 mg 07/23/18 10:00 Baby Aspirin PO QDAY CHRISTINE Atorvastatin Calcium 20 mg 07/16/18 22:00 07/21/18 21:08 Lipitor PO 20 mg QHS CHRISTINE Administration Carvedilol 25 mg 07/16/18 22:00 07/22/18 10:00 Coreg PO Not Given BID CHRISTINE Clopidogrel Bisulfate 75 mg 07/23/18 10:00 Plavix PO QDAY CHRISTINE Dextrose 50 gm 07/22/18 06:38 07/22/18 07:02 D50w (25gm) Vial IV 50 gm PRN PRN Administration Hypoglycemia Ergocalciferol 50,000 unit 07/17/18 10:00 07/17/18 10:00 Vitamin D2 PO Not Given We [facility] Famotidine 10 mg 07/16/18 22:00 07/22/18 10:00 Pepcid PO Not Given BID [facility] Hydroxyzine HCl 25 mg 07/16/18 23:00 07/22/18 08:00 Atarax PO Not Given TID [facility] Sodium Chloride 100 mls @ 999 mls/hr 07/21/18 09:40 Nacl 0.9% IV JOSE PRN Hypotension Insulin Glargine 25 units 07/18/18 22:00 07/21/18 21:09 Lantus SUB-Q Not Given QHS [facility] Insulin Human Lispro 10 unit 07/18/18 15:32 07/22/18 11:30 Humalog SUB-Q Not Given ACHS [facility] Protocol Losartan Potassium 100 mg 07/16/18 21:00 07/22/18 10:00 Cozaar PO Not Given QDAY [facility] Multivit/Ca Carb/B Cmplx/FA/Prenat 1 cap 07/16/18 21:00 07/22/18 10:00 Renal Caps PO Not Given DAILY [facility] Nifedipine 90 mg 07/16/18 22:00 07/21/18 21:08 Procardia Xl PO 90 mg QHS [facility] Administration Ondansetron HCl 4 mg 07/16/18 20:34 Zofran IV Q8H PRN Nausea And Vomiting Oxycodone/Acetaminophen 1 tab 07/16/18 20:34 07/18/18 20:16 Percocet 5/325 PO 1 tab Q6H PRN Administration Pain, Moderate (4-6) Sevelamer Carbonate 2,400 mg 07/17/18 08:00 07/22/18 12:00 Renvela PO Not Given TIDWM [facility] Sodium Chloride 10 ml 07/16/18 22:00 07/21/18 21:09 Sodium Chloride Flush Syringe 10 Ml IV 10 ml BID CHRISTINE Administration Sodium Chloride 10 ml 07/16/18 20:58 Sodium Chloride Flush Syringe 10 Ml IV PRN PRN LINE FLUSH Topiramate 50 mg 07/16/18 22:00 07/22/18 10:00 Topamax PO Not Given BID [facility] Venlafaxine HCl 37.5 mg 07/16/18 21:00 07/22/18 10:00 Effexor PO Not Given QDAY CHRISTINE
[2018-07-22] MEDS: SODIUM CHLORIDE FLUSH SYRINGE 10 ML IV SCH (22:55)
[2018-07-22] MEDS: LANTUS SUB-Q SCH (22:58)
[2018-07-22] MEDS: PROCARDIA XL PO SCH (22:58)
[2018-07-22] MEDS ORDERED: NACL 0.9 (PRIMING MACHINE ONLY DIALYSIS) MC ONE (23:58)
[2018-07-23 07:01] LABS: Hematocrit 32.3 % (35.5-45.6); Hemoglobin 10.7 gm/dl (11.8-15.2)
[2018-07-23 07:24] LABS: Calcium 8.8 mg/dL (8.4-10.2)
--- NOTE | 2018-07-23 07:59 | Progress Note ---
Assessment and Plan pt has normal coronaries and normal lv function with moderate aortic stenosis, improvement from echo of 40-45%, treat medically, add plavix for pvd and cont asa, statin and coreg, arb as per renal, discuss with mother, pt will now followup up localy, for Cards and renal, , [facility] - Patient Problems (1) Acute diastolic CHF (congestive heart failure), NYHA class 4 Current Visit: Yes Status: Acute (2) Aortic stenosis Current Visit: Yes Status: Acute Qualifiers: Cardiac valve disease etiology: nonrheumatic Qualified Code(s): I35.0 - Nonrheumatic aortic (valve) stenosis (3) NSTEMI (non-ST elevated myocardial infarction) Current Visit: Yes Status: Acute (4) ESRD needing dialysis Current Visit: Yes Status: Chronic (5) Hyperlipidemia Current Visit: Yes Status: Chronic Qualifiers: Hyperlipidemia type: mixed hyperlipidemia Qualified Code(s): E78.2 - Mixed hyperlipidemia (6) Hypertension Current Visit: Yes Status: Chronic Qualifiers: Hypertension type: essential hypertension Qualified Code(s): I10 - Essential (primary) hypertension (7) PVD (peripheral vascular disease) Current Visit: Yes Status: Chronic (8) Type 2 diabetes mellitus Current Visit: Yes Status: Chronic Qualifiers: Diabetes mellitus prison insulin use: without condenser tester use Diabetes mellitus complication status: with circulatory complication Diabetes mellitus complication detail: with peripheral angiopathy without gangrene Qualified Code(s): E11.51 - Type 2 diabetes mellitus with diabetic peripheral angiopathy without gangrene Subjective Date of service: 07/23/18 Principal diagnosis: ESRD Interval history: lying in bed no chest pain Objective Vital Signs Temp Pulse Pulse Resp BP Pulse Ox 07/23/18 04:59 97.9 F 66 18 171/98 100 07/23/18 00:03 97.4 F L 70 16 174/85 95 07/22/18 22:58 67 166/83 07/22/18 19:19 98.2 F 67 18 166/83 97 07/22/18 19:00 67 07/22/18 18:45 98.0 F 67 18 143/87 07/22/18 18:30 68 138/70 07/22/18 18:15 66 160/93 07/22/18 18:00 65 127/74 07/22/18 17:45 65 139/76 07/22/18 17:30 55 L 138/80 07/22/18 17:15 62 148/76 07/22/18 17:00 62 122/78 07/22/18 16:45 62 139/73 07/22/18 16:30 61 128/73 07/22/18 16:15 60 133/84 07/22/18 16:00 60 133/80 07/22/18 15:45 58 L 122/81 07/22/18 15:30 58 L 133/77 07/22/18 15:15 56 L 133/70 07/22/18 15:00 98.0 F 55 L 18 129/86 07/22/18 13:55 57 L 12 104/58 100 07/22/18 13:35 59 L 12 119/50 100 07/22/18 13:25 57 L 11 L 107/77 100 07/22/18 13:20 55 L 12 124/82 100 07/22/18 13:05 97.3 F L 55 L 12 114/72 100 07/22/18 11:00 56 L 07/22/18 10:00 56 L 98 - Physical Examination General: No Apparent Distress HEENT: Positive: PERRL, Normocephaly, Mucus Membranes Moist Neck: Positive: neck supple, trachea midline Cardiac: Positive: Reg Rate and Rhythm, Audible Murmur Lungs: Positive: clear to auscultation Neuro: Positive: Grossly Intact Abdomen: Positive: Soft. Negative: Tender Skin: Positive: Other (bilateral foot wounds in dressings ) Incision: Cardiac Cath Site (right groin soft no hemtaoma) Extremities: Present: normal, +2 Edema, Other (bilateral foot wounds covered with dressings ) - Labs and Meds CBC 07/23/18 Range/Units 06:36 Hgb 10.7 L (11.8-15.2) gm/dl Hct 32.3 L (35.5-45.6) % Plt Count 153 (140-440) K/mm3 Comprehensive Metabolic Panel 07/23/18 Range/Units 06:36 Sodium 138 (137-145) mmol/L Potassium 5.1 H (3.6-5.0) mmol/L Chloride 94.9 L (98-107) mmol/L Carbon Dioxide 26 (22-30) mmol/L BUN 49 H (9-20) mg/dL Creatinine 7.1 H (0.8-1.5) mg/dL Glucose 98 (75-100) mg/dL Calcium 8.8 (8.4-10.2) mg/dL - Imaging and Cardiology EKG: report reviewed, image reviewed Echo: report reviewed Cardiac cath: report reviewed (normal coronaries and moderate aortic stenosis mean gradient 22 mm hg and normal lv function ) - Telemetry EKG Rhythm: Sinus Bradycardia - EKG Sinus rhythms and dysrhythmias: sinus rhythm Chamber hypertrophy or enlargement: left ventricular hypertro Myocardial infarction: inferior [place] (old age inde
--- NOTE | 2018-07-23 08:24 | Discharge Summary ---
Providers - Providers Date of Admission: 07/16/18 14:47 Attending physician: THAO AVILA MD 07/16/18 20:34 Consult to Physician [CONS] Routine Comment: Consulting Provider: EVERARDO LOMELI Physician Instructions: Reason For Exam: end-stage renal disease 07/16/18 21:01 Consult to Wound/ET Nurse [CONS] Routine Reason For Exam: wound eval 07/17/18 09:42 Consult to Physician [CONS] Routine Comment: Consulting Provider: CESAR TONEY Physician Instructions: left foot diabetic ulcer Reason For Exam: diabetic ulcer 07/17/18 09:44 Consult to Physician [CONS] Routine Comment: ESRD Consulting Provider: EMILY FULTON Physician Instructions: Reason For Exam: chest pain. elevated troponin 07/19/18 08:56 Consult to Physician [CONS] Routine Comment: Consulting Provider: JAIDEN VOGT Physician Instructions: Reason For Exam: PVD 07/22/18 12:48 Consult to Cardiac Rehabilitation [CONS] Routine Reason For Exam: Cardiac Rehab Evaluation Primary care physician: MARKET RESEARCH CONSULTANT Hospitalization Reason for admission: severe pvd Condition: Stable Hospital course: 47-year-old -Welsh male with history of end-stage renal disease, hypertension hyperlipidemia, vitamin D deficiency and peripheral neuropathy comes in for chest pain since last night. Chest pain is intermittent in nature. Retrosternal. Nonradiating. Pain is about 6 on a scale of 1-10. No diaphoresis no shortness of breath. Patient had dialysis yesterday but for only 2 hours. Patient says he had 3-4 days history of slurred speech but during my history taking there was no slurred speech or any weakness . No shortness of breath. No palpitations. No orthopnea. Patient also has a chronic open wound on left lower extremity elbows or ankle and medial aspect of the left foot. No fever or chills. Left foot wound--- open superficial ulcer on the left medial aspect of the foot with no signs of infection and also superficial ulcer on the mid anterior tibial region with no drainage or signs of infection.--Wound care consult was requested. Peripheral arterial disease to be ruled out Arterial duplex scan ordered. Patient underwent cardiac cath: pt has normal coronaries and normal lv function with moderate aortic stenosis, improvement from echo of 40-45%, treat medically, add plavix for pvd and cont asa, statin and coreg, arb as per renal, discuss with mother, pt will now followup up localy, for Cards and renal, , maybe discharged from cardiology point of view Patient was discharged post [facility]. vascular discused with the patients mother and support system and recommended outpatient evaluation, this was agreed to and the mother stated she will bring the patient. Offloading boots Darco was also prescribed by IR. (1) Acute diastolic CHF (congestive heart failure), NYHA class 4 (2) Aortic stenosis Current Visit: Yes Status: Acute Qualifiers: Cardiac valve disease etiology: nonrheumatic Qualified Code(s): I35.0 - Nonrheumatic aortic (valve) stenosis (3) NSTEMI (non-ST elevated myocardial infarction) Current Visit: Yes Status: Acute (4) ESRD needing dialysis Current Visit: Yes Status: Chronic (5) Hyperlipidemia Current Visit: Yes Status: Chronic Qualifiers: Hyperlipidemia type: mixed hyperlipidemia Qualified Code(s): E78.2 - Mixed hyperlipidemia (6) Hypertension Current Visit: Yes Status: Chronic Qualifiers: Hypertension type: essential hypertension Qualified Code(s): I10 - Essential (primary) hypertension (7) PVD (peripheral vascular disease) Current Visit: Yes Status: Chronic Patient will follow with Vascular for further evaluation (8) Type 2 diabetes mellitus Current Visit: Yes Status: Chronic Sliding-scale insulin, Lantus 25 units daily at bedtime and Humalog 10 units TID Qualifiers: Diabetes mellitus terminal gauger insulin use: without intermediate use Diabetes mellitus complication status: with circulatory complication Diabetes mellitus complication detail: with peripheral angiopathy without gangrene Qualified Code(s): E11.51 - Type 2 diabetes mellitus with diabetic peripheral angiopathy without gangrene (9) Slurred speech - Patient said he went [place] when he has slurred speech and told has TIA but no workup was done - CT head was done and negative, no further workup needed (10) left foot and leg ulcer - Evaluated by Dr Toney and recommend wound care (11) Peripheral neuropathy Continue gabapentin (12) Depression Continue Effexor 37.5 mg daily (13) Vitamin D deficiency Continue vitamin D per schedule Mother appears to be relaiable based on ecological economist conversation Disposition: [id number] HOME UNDER HOME [facility] Time spent for discharge: 35 mins Core Measure Documentation - Palliative Care Palliative Care/ Comfort Measures: Not Applicable - Core Measures Any of the following diagnoses?: none Exam - Physical Exam Narrative exam: Not in cardiopulmonary distress. The patient appeared well nourished and normally developed. Vital signs as documented. Head exam is unremarkable. No scleral icterus . Neck is without jugular venous distension, thyromegaly, or carotid bruits. Lungs are clear to auscultation. Cardiac exam reveals regular rate and Rhythm. First and second heart sounds normal. No murmurs, rubs or gallops. Abdominal exam reveals normal bowel sounds, no masses, no organomegaly and no aortic enlargement. Extremities bliateral chronic LE swelling and ulcer on the left leg and foot. LOAN CLOSER: Alert and oriented 3. No focal weakness. - Constitutional Vitals: Temp Pulse Resp BP Pulse Ox 97.9 F 66 18 171/98 100 07/23/18 04:59 07/23/18 04:59 07/23/18 04:59 07/23/18 04:59 07/23/18 04:59 Plan Activity: advance as tolerated, fall precautions Diet: low fat, diabetic, renal Special Instructions: record daily BP diary, record blood sugar diary, physical therapy, occupational therapy, home health RN Follow up with: JAIDEN VOGT MD [Staff Physician] - 7 Days EVERARDO LOMELI MD [Staff Physician] - 7 Days PRIMARY MD YUSUF [Primary Care Provider] - 3-5 Days JEAN CISNEROS MD [Staff Physician] - 7 Days CESAR TONEY MD [Staff Physician] - 7 Days Prescriptions: Insulin Glargine,Hum.rec.anlog [Lantus] 20 unit SQ QHS #30 vial Aspirin [Aspirin BABY CHEW TAB] 81 mg PO QDAY #30 tab.chew Famotidine [Pepcid] 10 mg PO BID #60 tablet oxyCODONE /ACETAMINOPHEN [Percocet 5/325 mg] 1 tab PO Q6H PRN #14 tablet PRN Reason: Pain, Moderate (4-6) Clopidogrel [Plavix] 75 mg PO QDAY #30 tablet Other Discharge Orders: Glucometer (Amb) Location: None Selected Glucometer supplies[Amb] Location: None Selected
--- NOTE | 2018-07-23 09:09 | Progress Note ---
Assessment and Plan End Stage Renal Disease on HD: -HD today to restart outpatient schedule, can be discharged from renal standpoint post HD -Assess need for HD on daily basis -On renvela for hyperphosphatemia management -Renal diet -Monitor I/O's Chest Pain: - Cardiology on board, s/p LHC yesterday Hyponatremia: - fluid restriction Peripheral vascular disease: -Vascular surgery consulted, pt has significant arterial contribution and would benefit from revascularization once cardiac issues are addressed per Dr Belle note -Wound care Hypertension: -On Coreg and Losartan -Adjust regimen as needed Diabetes Mellitus type 2 on insulin: -On insulin as per primary Subjective Date of service: 07/23/18 Principal diagnosis: ESRD Interval history: tolerated HD yesterday Objective - Vital Signs Vital signs: Vital Signs - 12hr 07/22/18 07/23/18 07/23/18 22:58 00:03 04:59 Temperature 97.4 F L 97.9 F Pulse Rate 67 70 66 Respiratory 16 18 Rate Blood Pressure 166/83 174/85 171/98 O2 Sat by Pulse 95 100 Oximetry - General Appearance General appearance: well-developed, well-nourished EENT: ATNC, PERRL Neck: no JVD, no carotid bruit Respiratory: Present: Clear to Ascultation. Absent: Rales, Ronchi Cardiology: regular, S1S2 Gastrointestinal: normoactive bowel sounds, no absent bowel sounds, no tenderness, no distended Integumentary: no rash, warm and dry Neurologic: no focal deficit, no asterixis Musculoskeletal: other (trace pitting edema in BLE) Psychiatric: mood/affect appropriate, cooperative - Lab 07/23/18 06:36 07/23/18 06:36 Most recent lab results Calcium 8.8 mg/dL (8.4-10.2) 07/23/18 06:36 Phosphorus 6.90 mg/dL (2.5-4.5) H D 07/23/18 06:36 Medications & Allergies - Medications Allergies/Adverse Reactions: Allergies No Known Allergies Allergy (Unverified 07/16/18 16:37) Home Medications: Home Medications Medication Instructions Recorded Confirmed Last Taken Type AtorvaSTATin [Lipitor] 20 mg PO QHS 07/16/18 07/16/18 Unknown History Carvedilol [Coreg] 25 mg PO BID 07/16/18 07/16/18 Unknown History Ergocalciferol (Vitamin D2) 50,000 unit PO QWEEK 07/16/18 07/16/18 Unknown History [Drisdol] Gabapentin [Gralise] 300 mg PO QHS 07/16/18 07/16/18 Unknown History Losartan [Cozaar] 100 mg PO QDAY 07/16/18 07/16/18 Unknown History NIFEdipine [Nifedipine ER] 90 mg PO QHS 07/16/18 07/16/18 Unknown History Sevelamer Carbonate [Renvela] 2,400 mg PO TIDWM 07/16/18 07/16/18 Unknown History Topiramate [Topamax] 50 mg PO BID 07/16/18 07/16/18 Unknown History Venlafaxine [Effexor 37.5mg tab] 37.5 mg PO QDAY 07/16/18 07/16/18 Unknown History Vit B Comp C/Folic Acid/Vit D3 1 each PO DAILY 07/16/18 07/16/18 Unknown History [Dialyvite 800 Plus D Wafer] hydrOXYzine HCl [Hydroxyzine HCl] 25 mg PO TID 07/16/18 07/16/18 Unknown History Aspirin [Aspirin BABY CHEW TAB] 81 mg PO QDAY #30 tab.chew 07/23/18 Unknown Rx Clopidogrel [Plavix] 75 mg PO QDAY #30 tablet 07/23/18 Unknown Rx Famotidine [Pepcid] 10 mg PO BID #60 tablet 07/23/18 Unknown Rx Insulin Glargine,Hum.rec.anlog 20 unit SQ QHS #30 vial 07/23/18 Unknown Rx [Lantus] oxyCODONE /ACETAMINOPHEN [Percocet 1 tab PO Q6H PRN #14 tablet 07/23/18 Unknown Rx 5/325 mg] Active Medications: Generic Name Dose Route Start Last Admin Trade Name Freq PRN Reason Stop Dose Admin Acetaminophen 650 mg 07/16/18 20:34 Tylenol PO Q4H PRN Pain MILD(1-3)/Fever >100.5/SANCHEZ Albumin Human 12.5 gm 07/17/18 11:23 Alburx 25% (Albumin) IV JOSE PRN Hypotension Aspirin 81 mg 07/23/18 10:00 Baby Aspirin PO QDAY CHRISTINE Atorvastatin Calcium 20 mg 07/16/18 22:00 07/22/18 22:57 Lipitor PO 20 mg QHS REPLACED BY [facility] Administration Carvedilol 25 mg 07/16/18 22:00 07/22/18 22:58 Coreg PO 25 mg BID CHRISTINE Administration Clopidogrel Bisulfate 75 mg 07/23/18 10:00 Plavix PO QDAY REPLACED BY [facility] Dextrose 50 gm 07/22/18 06:38 07/22/18 07:02 D50w (25gm) Vial IV 50 gm PRN PRN Administration Hypoglycemia Ergocalciferol 50,000 unit 07/17/18 10:00 07/17/18 10:00 Vitamin D2 PO Not Given We REPLACED BY [facility] Famotidine 10 mg 07/16/18 22:00 07/22/18 22:58 Pepcid PO 10 mg BID CHRISTINE Administration Hydroxyzine HCl 25 mg 07/16/18 23:00 07/22/18 20:30 Atarax PO 25 mg TID CHRISTINE Administration Sodium Chloride 100 mls @ 999 mls/hr 07/21/18 09:40 Nacl 0.9% IV JOSE PRN Hypotension Insulin Glargine 25 units 07/18/18 22:00 07/22/18 22:58 Lantus SUB-Q 25 units QHS REPLACED BY [facility] Administration Insulin Human Lispro 10 unit 07/18/18 15:32 07/22/18 23:03 Humalog SUB-Q 2 unit ACHS REPLACED BY [facility] Administration Protocol Losartan Potassium 100 mg 07/16/18 21:00 07/22/18 10:00 Cozaar PO Not Given QDAY REPLACED BY [facility] Multivit/Ca Carb/B Cmplx/FA/Prenat 1 cap 07/16/18 21:00 07/22/18 10:00 Renal Caps PO Not Given DAILY REPLACED BY [facility] Nifedipine 90 mg 07/16/18 22:00 07/22/18 22:58 Procardia Xl PO 90 mg QHS REPLACED BY [facility] Administration Ondansetron HCl 4 mg 07/16/18 20:34 Zofran IV Q8H PRN Nausea And Vomiting Oxycodone/Acetaminophen 1 tab 07/16/18 20:34 07/18/18 20:16 Percocet 5/325 PO 1 tab Q6H PRN Administration Pain, Moderate (4-6) Sevelamer Carbonate 2,400 mg 07/17/18 08:00 07/22/18 12:00 Renvela PO Not Given TIDWM REPLACED BY [facility] Sodium Chloride 10 ml 07/16/18 22:00 04/01/19 22:55 Sodium Chloride Flush Syringe 10 Ml IV 10 ml BID CHRISTINE Administration Sodium Chloride 10 ml 07/16/18 20:58 Sodium Chloride Flush Syringe 10 Ml IV PRN PRN LINE FLUSH Topiramate 50 mg 07/16/18 22:00 07/22/18 22:57 Topamax PO 50 mg BID CHRISTINE Administration Venlafaxine HCl 37.5 mg 07/16/18 21:00 07/22/18 10:00 Effexor PO Not Given QDAY CHRISTINE
--- NOTE | 2018-07-23 11:32 | Progress Note ---
Assessment and Plan 47-year-old male with active cardiac issues, end-stage renal disease, blindness, and severe wound to the lower extremities with neuropathy. His lower extremity wounds have significant arterial contribution and would benefit from revascularization. His wounds, neuropathy, end-stage renal disease, and cardiac issues place him at high risk for limb loss. Patient requires endovascular revascularization, offloading his feet to allow for wound healing, aggressive wound care, and most likely hyperbaric oxygen therapy if possible. I had a long discussion with the patient's mother. Plan is for wound care with possible HBOT. Plan for offloading feet with bilateral Darco boots. Plan for revascularization on sunday as outpatient. Subjective Date of service: 07/23/18 Principal diagnosis: ESRD Objective - Constitutional Vitals: Vital Signs - 12hr 07/23/18 07/23/18 07/23/18 00:03 04:59 08:00 Temperature 97.4 F L 97.9 F 98.3 F Pulse Rate 70 66 62 Respiratory 16 18 20 Rate Blood Pressure 174/85 171/98 Blood Pressure 130/81 [Right] O2 Sat by Pulse 95 100 94 Oximetry - Labs CBC & Chem 7: 07/23/18 06:36 07/23/18 06:36 Labs: Abnormal lab results 07/22/18 07/22/18 07/23/18 Range/Units 19:13 20:50 06:36 Hgb 10.7 L (11.8-15.2) gm/dl Hct 32.3 L (35.5-45.6) % Heparin Anti-Xa Level 0.10 L (0.3-0.7) U.I./ml Potassium (3.6-5.0) mmol/L Chloride (98-107) mmol/L BUN (9-20) mg/dL Creatinine (0.8-1.5) mg/dL POC Glucose 162 H (70-105) Phosphorus (2.5-4.5) mg/dL 07/23/18 07/23/18 Range/Units 06:36 08:21 Hgb (11.8-15.2) gm/dl Hct (35.5-45.6) % Heparin Anti-Xa Level (0.3-0.7) U.I./ml Potassium 5.1 H (3.6-5.0) mmol/L Chloride 94.9 L (98-107) mmol/L BUN 49 H (9-20) mg/dL Creatinine 7.1 H (0.8-1.5) mg/dL POC Glucose 66 L (70-105) Phosphorus 6.90 H D (2.5-4.5) mg/dL Medications & Allergies - Medications Allergies/Adverse Reactions: Allergies No Known Allergies Allergy (Unverified 07/16/18 16:37) Home Medications: Home Medications Medication Instructions Recorded Confirmed Last Taken Type AtorvaSTATin [Lipitor] 20 mg PO QHS 07/16/18 07/16/18 Unknown History Carvedilol [Coreg] 25 mg PO BID 07/16/18 07/16/18 Unknown History Ergocalciferol (Vitamin D2) 50,000 unit PO QWEEK 07/16/18 07/16/18 Unknown History [Drisdol] Gabapentin [Gralise] 300 mg PO QHS 07/16/18 07/16/18 Unknown History Losartan [Cozaar] 100 mg PO QDAY 07/16/18 07/16/18 Unknown History NIFEdipine [Nifedipine ER] 90 mg PO QHS 07/16/18 07/16/18 Unknown History Sevelamer Carbonate [Renvela] 2,400 mg PO TIDWM 07/16/18 07/16/18 Unknown History Topiramate [Topamax] 50 mg PO BID 07/16/18 07/16/18 Unknown History Venlafaxine [Effexor 37.5mg tab] 37.5 mg PO QDAY 07/16/18 07/16/18 Unknown History Vit B Comp C/Folic Acid/Vit D3 1 each PO DAILY 07/16/18 07/16/18 Unknown History [Dialyvite 800 Plus D Wafer] hydrOXYzine HCl [Hydroxyzine HCl] 25 mg PO TID 07/16/18 07/16/18 Unknown History Aspirin [Aspirin BABY CHEW TAB] 81 mg PO QDAY #30 tab.chew 07/23/18 Unknown Rx Clopidogrel [Plavix] 75 mg PO QDAY #30 tablet 07/23/18 Unknown Rx Famotidine [Pepcid] 10 mg PO BID #60 tablet 07/23/18 Unknown Rx Insulin Glargine,Hum.rec.anlog 20 unit SQ QHS #30 vial 07/23/18 Unknown Rx [Lantus] oxyCODONE /ACETAMINOPHEN [Percocet 1 tab PO Q6H PRN #14 tablet 07/23/18 Unknown Rx 5/325 mg] Active Medications: Generic Name Dose Route Start Last Admin Trade Name Freq PRN Reason Stop Dose Admin Acetaminophen 650 mg 07/16/18 20:34 Tylenol PO Q4H PRN Pain MILD(1-3)/Fever >100.5/SANCHEZ Albumin Human 12.5 gm 07/17/18 11:23 Alburx 25% (Albumin) IV JOSE PRN Hypotension Aspirin 81 mg 07/23/18 10:00 Baby Aspirin PO QDAY [facility] Atorvastatin Calcium 20 mg 07/16/18 22:00 07/22/18 22:57 Lipitor PO 20 mg QHS CHRISTINE Administration Carvedilol 25 mg 07/16/18 22:00 07/22/18 22:58 Coreg PO 25 mg BID CHRISTINE Administration Clopidogrel Bisulfate 75 mg 07/23/18 10:00 Plavix PO QDAY [facility] Dextrose 50 gm 07/22/18 06:38 07/22/18 07:02 D50w (25gm) Vial IV 50 gm PRN PRN Administration Hypoglycemia Ergocalciferol 50,000 unit 07/17/18 10:00 07/17/18 10:00 Vitamin D2 PO Not Given [facility] Famotidine 10 mg 07/16/18 22:00 07/22/18 22:58 Pepcid PO 10 mg BID CHRISTINE Administration Hydroxyzine HCl 25 mg 07/16/18 23:00 07/22/18 20:30 Atarax PO 25 mg TID CHRISTINE Administration Sodium Chloride 100 mls @ 999 mls/hr 07/21/18 09:40 Nacl 0.9% IV JOSE PRN Hypotension Insulin Glargine 25 units 07/18/18 22:00 07/22/18 22:58 Lantus SUB-Q 25 units QHS [facility] Administration Insulin Human Lispro 10 unit 07/18/18 15:32 07/22/18 23:03 Humalog SUB-Q 2 unit ACHS CHRISTINE Administration Protocol Losartan Potassium 100 mg 07/16/18 21:00 07/22/18 10:00 Cozaar PO Not Given QDAY [facility] Multivit/Ca Carb/B Cmplx/FA/Prenat 1 cap 07/16/18 21:00 07/22/18 10:00 Renal Caps PO Not Given DAILY CHRISTINE Nifedipine 90 mg 07/16/18 22:00 07/22/18 22:58 Procardia Xl PO 90 mg QHS CHRISTINE Administration Ondansetron HCl 4 mg 07/16/18 20:34 Zofran IV Q8H PRN Nausea And Vomiting Oxycodone/Acetaminophen 1 tab 07/16/18 20:34 07/18/18 20:16 Percocet 5/325 PO 1 tab Q6H PRN Administration Pain, Moderate (4-6) Sevelamer Carbonate 2,400 mg 07/17/18 08:00 07/22/18 12:00 Renvela PO Not Given TIDWM CHRISTINE Sodium Chloride 10 ml 07/16/18 22:00 07/22/18 22:55 Sodium Chloride Flush Syringe 10 Ml IV 10 ml BID CHRISTINE Administration Sodium Chloride 10 ml 07/16/18 20:58 Sodium Chloride Flush Syringe 10 Ml IV PRN PRN LINE FLUSH Topiramate 50 mg 07/16/18 22:00 07/22/18 22:57 Topamax PO 50 mg BID CHRISTINE Administration Venlafaxine HCl 37.5 mg 07/16/18 21:00 07/22/18 10:00 Effexor PO Not Given QDAY CHRISTINE
[2018-07-23] MEDS: SODIUM CHLORIDE FLUSH SYRINGE 10 ML IV SCH ×3 (12:39→22:23)
[2018-07-23] MEDS: ATARAX PO SCH ×4 (12:39→22:20)
[2018-07-23] MEDS: HumaLOG SUB-Q SCH ×5 (12:40→22:21)
[2018-07-23] MEDS: RENVELA PO SCH ×4 (12:40→20:16)
[2018-07-23] MEDS: ASPIRIN PO SCH (12:41)
[2018-07-23] MEDS: BABY ASPIRIN PO SCH (16:02)
[2018-07-23] MEDS: COZAAR PO SCH (16:02)
[2018-07-23] MEDS: COREG PO SCH ×2 (16:02→22:21)
[2018-07-23] MEDS: Renal Caps PO SCH (16:02)
[2018-07-23] MEDS: PEPCID PO SCH ×2 (16:03→22:22)
[2018-07-23] MEDS: TOPAMAX PO SCH ×2 (16:03→22:23)
[2018-07-23] MEDS: EFFEXOR PO SCH (16:03)
[2018-07-23] MEDS: PLAVIX PO SCH (16:16)
[2018-07-23] MEDS ORDERED: NARCAN 0.4 MG/1 ML IV ONE (16:43)
--- NOTE | 2018-07-23 19:26 | Cat Scan Report ---
PROCEDURE: CT HEAD/BRAIN WO CON TECHNIQUE: Computerized tomography of the head was performed without contrast material. HISTORY: Extreme drowsiness COMPARISONS: Prior CT scan of the brain 07/16/2018 . FINDINGS: Brain: There is no evidence of intracranial hemorrhage. No parenchymal hemorrhage is seen. No mass lesions or mass effect is identified. No abnormal extra-axial fluid collections or masses are seen. There is some decreased density seen in the periventricular white matter without mass effect. This i s fairly symmetric and does not exhibit any mass effect consistent with gliosis probably on the basis of microvascular disease or white matter changes of aging. Ventricles: The ventricles, sulcal pattern and fissures are prominent consistent with atrophy. Bone Windows: No evidence of fracture. Paranasal sinuses: Clear. Mastoid air cells: Clear. IMPRESSION: There is evidence of mild atrophy and gliosis. No acute intracranial abnormalities are seen. This document is electronically signed by Johnny Thomas MD., July 23 2018 07:23:44 PM ET
[2018-07-23] MEDS: LANTUS SUB-Q SCH (22:21)
[2018-07-23] MEDS: PROCARDIA XL PO SCH (22:23)
[2018-07-24] MEDS: TYLENOL PO PRN ×3 (00:49→21:24)
[2018-07-24 06:50] LABS: Calcium 8.1 mg/dL (8.4-10.2)
--- NOTE | 2018-07-24 09:52 | Discharge Summary ---
Providers - Providers Date of Admission: 07/16/18 14:47 Attending physician: THAO AVILA MD 07/16/18 20:34 Consult to Physician [CONS] Routine Comment: Consulting Provider: EVERARDO LOMELI Physician Instructions: Reason For Exam: end-stage renal disease 07/16/18 21:01 Consult to Wound/ET Nurse [CONS] Routine Reason For Exam: wound eval 07/17/18 09:42 Consult to Physician [CONS] Routine Comment: Consulting Provider: CESAR TONEY Physician Instructions: left foot diabetic ulcer Reason For Exam: diabetic ulcer 07/17/18 09:44 Consult to Physician [CONS] Routine Comment: ESRD Consulting Provider: EMILY FULTON Physician Instructions: Reason For Exam: chest pain. elevated troponin 07/19/18 08:56 Consult to Physician [CONS] Routine Comment: Consulting Provider: JAIDEN VOGT Physician Instructions: Reason For Exam: PVD 07/22/18 12:48 Consult to Cardiac Rehabilitation [CONS] Routine Reason For Exam: Cardiac Rehab Evaluation Primary care physician: EDGE BONDER Hospitalization Reason for admission: chest pain Condition: Stable Hospital course: 47-year-old -Citizen Of [place] male with history of end-stage renal disease, hypertension hyperlipidemia, vitamin D deficiency and peripheral neuropathy comes in for chest pain since last night. Chest pain is intermittent in nature. Retrosternal. Nonradiating. Pain is about 6 on a scale of 1-10. No diaphoresis no shortness of breath. Patient had dialysis yesterday but for only 2 hours. Patient says he had 3-4 days history of slurred speech but during my history taking there was no slurred speech or any weakness . No shortness of breath. No palpitations. No orthopnea. Patient also has a chronic open wound on left lower extremity elbows or ankle and medial aspect of the left foot. No fever or chills. Left foot wound--- open superficial ulcer on the left medial aspect of the foot with no signs of infection and also superficial ulcer on the mid anterior tibial region with no drainage or signs of infection.--Wound care consult was requested. Peripheral arterial disease to be ruled out Arterial duplex scan ordered. Patient underwent cardiac cath: pt has normal coronaries and normal lv function with moderate aortic stenosis, improvement from echo of 40-45%, treat medically, add plavix for pvd and cont asa, statin and coreg, arb as per renal, discuss with mother, pt will now followup up localy, for Cards and renal, , maybe discharged from cardiology point of view Patient was discharged post [facility]. vascular discused with the patients mother and support system and recommended outpatient evaluation, this was agreed to and the mother stated she will bring the patient. Offloading boots Darco was also prescribed by IR. Patient was held an extra day due to lethargy following dialysis now improved and ready for discharge. refuses rehab (1) Acute diastolic CHF (congestive heart failure), NYHA class 4 (2) Aortic stenosis Current Visit: Yes Status: Acute Qualifiers: Cardiac valve disease etiology: nonrheumatic Qualified Code(s): I35.0 - Nonrheumatic aortic (valve) stenosis (3) NSTEMI (non-ST elevated myocardial infarction) Current Visit: Yes Status: Acute (4) ESRD needing dialysis Current Visit: Yes Status: Chronic (5) Hyperlipidemia Current Visit: Yes Status: Chronic Qualifiers: Hyperlipidemia type: mixed hyperlipidemia Qualified Code(s): E78.2 - Mixed hyperlipidemia (6) Hypertension Current Visit: Yes Status: Chronic Qualifiers: Hypertension type: essential hypertension Qualified Code(s): I10 - Essential (primary) hypertension (7) PVD (peripheral vascular disease) Current Visit: Yes Status: Chronic Patient will follow with Vascular for further evaluation (8) Type 2 diabetes mellitus Current Visit: Yes Status: Chronic Sliding-scale insulin, Lantus 25 units daily at bedtime and Humalog 10 units TID Qualifiers: Diabetes mellitus platform architect insulin use: without long-term use Diabetes mellitus complication status: with circulatory complication Diabetes mellitus complication detail: with peripheral angiopathy without gangrene Qualified Code(s): E11.51 - Type 2 diabetes mellitus with diabetic peripheral angiopathy without gangrene (9) Slurred speech - Patient said he went [facility] when he has slurred speech and told has TIA but no workup was done - CT head was done and negative, no further workup needed (10) left foot and leg ulcer - Evaluated by Dr Toney and recommend wound care (11) Peripheral neuropathy Continue gabapentin (12) Depression Continue Effexor 37.5 mg daily (13) Vitamin D deficiency Continue vitamin D per schedule Disposition: [id number] HOME UNDER HOME [facility] Time spent for discharge: 35 mins Core Measure Documentation - Palliative Care Palliative Care/ Comfort Measures: Not Applicable - Core Measures Any of the following diagnoses?: heart failure - Heart Failure Discharge Requirements BENJIE/ARB for LVSD if EF <40%: Yes Beta macario at discharge: Yes Exam - Physical Exam Narrative exam: Not in cardiopulmonary distress. The patient appeared well nourished and normally developed. Vital signs as documented. Head exam is unremarkable. No scleral icterus . Neck is without jugular venous distension, thyromegaly, or carotid bruits. Lungs are clear to auscultation. Cardiac exam reveals regular rate and Rhythm. First and second heart sounds normal. No murmurs, rubs or gallops. Abdominal exam reveals normal bowel sounds, no masses, no organomegaly and no aortic enlargement. Extremities bliateral chronic LE swelling and ulcer on the left leg and foot. [employer]: Alert and oriented 3. No focal weakness. - Constitutional Vitals: Temp Pulse Resp BP Pulse Ox 98.3 F 67 16 125/75 97 07/24/18 07:56 07/24/18 07:56 07/24/18 07:56 07/24/18 07:56 07/24/18 07:56 Plan Activity: advance as tolerated, fall precautions Diet: low salt, diabetic, renal Special Instructions: restrict fluid intake to (1200cc/day), record daily weights Follow up with: JAIDEN VOGT MD [Staff Physician] - 7 Days EVERARDO LOMELI MD [Staff Physician] - 7 Days PRIMARY CARE, [Primary Care Provider] - 3-5 Days CESAR TONEY MD [Staff Physician] - 7 Days JEAN CISNEROS MD [Staff Physician] - 7 Days Prescriptions: Insulin Glargine,Hum.rec.anlog [Lantus] 20 unit SQ QHS #30 vial Aspirin [Aspirin BABY CHEW TAB] 81 mg PO QDAY #30 tab.chew Famotidine [Pepcid] 10 mg PO BID #60 tablet oxyCODONE /ACETAMINOPHEN [Percocet 5/325 mg] 1 tab PO Q6H PRN #14 tablet PRN Reason: Pain, Moderate (4-6) Clopidogrel [Plavix] 75 mg PO QDAY #30 tablet Other Discharge Orders: Glucometer (Amb) Location: None Selected Glucometer supplies[Amb] Location: None Selected
[2018-07-24] MEDS: COREG PO SCH ×2 (10:42→21:25)
[2018-07-24] MEDS: COZAAR PO SCH (10:42)
[2018-07-24] MEDS: PLAVIX PO SCH (10:42)
[2018-07-24] MEDS: RENVELA PO SCH ×3 (10:42→17:44)
[2018-07-24] MEDS: EFFEXOR PO SCH (10:42)
[2018-07-24] MEDS: TOPAMAX PO SCH ×2 (10:42→21:25)
[2018-07-24] MEDS: Renal Caps PO SCH (10:42)
[2018-07-24] MEDS: BABY ASPIRIN PO SCH (10:42)
[2018-07-24] MEDS: SODIUM CHLORIDE FLUSH SYRINGE 10 ML IV SCH ×2 (10:43→21:26)
[2018-07-24] MEDS: ATARAX PO SCH ×3 (11:20→21:25)
[2018-07-24] MEDS: VITAMIN D2 PO SCH (11:20)
[2018-07-24] MEDS: PEPCID PO SCH ×2 (11:20→21:24)
[2018-07-24] MEDS: HumaLOG SUB-Q SCH ×5 (11:20→21:25)
--- NOTE | 2018-07-24 14:27 | Progress Note ---
Assessment and Plan End Stage Renal Disease: -S/P Hemodialysis yesterday for UF and clearance -Has left AVF that is functional -Fluid restriction of 1 liter per day -Renal diet -Obtain daily weights -Monitor I/O's -Assess dialysis needs daily Slurred Speech: -Head CT normal -As per Attending PVD: -Vascular surgery consulted, pt has significant arterial contribution and would benefit from revascularization once cardiac issues are addressed per Dr Belle -Wound care Hypertension: -On Coreg and Losartan -Adjust regimen as needed Diabetes Mellitus: -On insulin as per primary Subjective Date of service: 07/24/18 Principal diagnosis: ESRD Interval history: Seen lying in bed. Awake and alert. No family at bedside. Objective - Vital Signs Vital signs: Vital Signs - 12hr 07/24/18 07/24/18 07/24/18 02:58 04:40 07:56 Temperature 99.8 F H 98.3 F Pulse Rate 69 69 67 Respiratory 20 16 Rate Blood Pressure 152/73 125/75 O2 Sat by Pulse 96 97 Oximetry 07/24/18 07/24/18 11:00 12:04 Temperature 98.4 F Pulse Rate 78 65 Respiratory 16 Rate Blood Pressure 107/60 O2 Sat by Pulse 92 Oximetry - General Appearance General appearance: well-developed EENT: PERRL, other (blind) Neck: no JVD, supple Respiratory: Present: Decreased Breath Sounds Cardiology: regular, S1S2 Gastrointestinal: normoactive bowel sounds Integumentary: ulcer Neurologic: alert and oriented x3 Musculoskeletal: joint swelling - Lab 07/23/18 06:36 07/24/18 05:59 Most recent lab results Calcium 8.1 mg/dL (8.4-10.2) L 07/24/18 05:59 Phosphorus 5.20 mg/dL (2.5-4.5) H D 07/24/18 05:59 Medications & Allergies - Medications Allergies/Adverse Reactions: Allergies No Known Allergies Allergy (Unverified 07/16/18 16:37) Home Medications: Home Medications Medication Instructions Recorded Confirmed Last Taken Type AtorvaSTATin [Lipitor] 20 mg PO QHS 07/16/18 07/16/18 Unknown History Carvedilol [Coreg] 25 mg PO BID 07/16/18 07/16/18 Unknown History Ergocalciferol (Vitamin D2) 50,000 unit PO QWEEK 07/16/18 07/16/18 Unknown History [Drisdol] Gabapentin [Gralise] 300 mg PO QHS 07/16/18 07/16/18 Unknown History Losartan [Cozaar] 100 mg PO QDAY 07/16/18 07/16/18 Unknown History NIFEdipine [Nifedipine ER] 90 mg PO QHS 07/16/18 07/16/18 Unknown History Sevelamer Carbonate [Renvela] 2,400 mg PO TIDWM 07/16/18 07/16/18 Unknown History Topiramate [Topamax] 50 mg PO BID 07/16/18 07/16/18 Unknown History Venlafaxine [Effexor 37.5mg tab] 37.5 mg PO QDAY 07/16/18 07/16/18 Unknown History Vit B Comp C/Folic Acid/Vit D3 1 each PO DAILY 07/16/18 07/16/18 Unknown History [Dialyvite 800 Plus D Wafer] hydrOXYzine HCl [Hydroxyzine HCl] 25 mg PO TID 07/16/18 07/16/18 Unknown History Aspirin [Aspirin BABY CHEW TAB] 81 mg PO QDAY #30 tab.chew 07/23/18 Unknown Rx Clopidogrel [Plavix] 75 mg PO QDAY #30 tablet 07/23/18 Unknown Rx Famotidine [Pepcid] 10 mg PO BID #60 tablet 07/23/18 Unknown Rx Insulin Glargine,Hum.rec.anlog 20 unit SQ QHS #30 vial 07/23/18 Unknown Rx [Lantus] oxyCODONE /ACETAMINOPHEN [Percocet 1 tab PO Q6H PRN #14 tablet 07/23/18 Unknown Rx 5/325 mg] Active Medications: Generic Name Dose Route Start Last Admin Trade Name Freq PRN Reason Stop Dose Admin Acetaminophen 650 mg 07/16/18 20:34 07/24/18 11:20 Tylenol PO 650 mg Q4H PRN Administration Pain MILD(1-3)/Fever >100.5/SANCHEZ Albumin Human 12.5 gm 07/17/18 11:23 Alburx 25% (Albumin) IV JOSE PRN Hypotension Aspirin 81 mg 07/23/18 10:00 07/24/18 10:42 Baby Aspirin PO 81 mg QDAY CHRISTINE Administration Atorvastatin Calcium 20 mg 07/16/18 22:00 07/23/18 22:22 Lipitor PO 20 mg QHS CHRISTINE Administration Carvedilol 25 mg 07/16/18 22:00 07/24/18 10:42 Coreg PO 25 mg BID CHRISTINE Administration Clopidogrel Bisulfate 75 mg 07/23/18 10:00 07/24/18 10:42 Plavix PO 75 mg QDAY CHRISTINE Administration Dextrose 50 gm 07/22/18 06:38 07/22/18 07:02 D50w (25gm) Vial IV 50 gm PRN PRN Administration Hypoglycemia Ergocalciferol 50,000 unit 07/17/18 10:00 07/24/18 11:20 Vitamin D2 PO 50,000 unit We CHRISTINE Administration Famotidine 10 mg 07/16/18 22:00 07/24/18 11:20 Pepcid PO 10 mg BID CHRISTINE Administration Hydroxyzine HCl 25 mg 07/16/18 23:00 07/24/18 11:20 Atarax PO 25 mg TID CHRISTINE Administration Sodium Chloride 100 mls @ 999 mls/hr 07/21/18 09:40 Nacl 0.9% IV JOSE PRN Hypotension Insulin Glargine 25 units 07/18/18 22:00 07/23/18 22:21 Lantus SUB-Q Not Given QHS [facility] Insulin Human Lispro 10 unit 07/18/18 15:32 07/24/18 11:20 Humalog SUB-Q 10 unit ACHS [facility] Administration Protocol Losartan Potassium 100 mg 07/16/18 21:00 07/24/18 10:42 Cozaar PO 100 mg QDAY [facility] Administration Multivit/Ca Carb/B Cmplx/FA/Prenat 1 cap 07/16/18 21:00 07/24/18 10:42 Renal Caps PO 1 cap DAILY CHRISTINE Administration Nifedipine 90 mg 07/16/18 22:00 07/23/18 22:23 Procardia Xl PO 90 mg QHS CHRISTINE Administration Ondansetron HCl 4 mg 07/16/18 20:34 Zofran IV Q8H PRN Nausea And Vomiting Oxycodone/Acetaminophen 1 tab 07/16/18 20:34 07/18/18 20:16 Percocet 5/325 PO 1 tab Q6H PRN Administration Pain, Moderate (4-6) Sevelamer Carbonate 2,400 mg 07/17/18 08:00 07/24/18 10:42 Renvela PO 2,400 mg TIDWM CHRISTINE Administration Sodium Chloride 10 ml 07/16/18 22:00 07/24/18 10:43 Sodium Chloride Flush Syringe 10 Ml IV 10 ml BID CHRISTINE Administration Sodium Chloride 10 ml 07/16/18 20:58 Sodium Chloride Flush Syringe 10 Ml IV PRN PRN LINE FLUSH Topiramate 50 mg 07/16/18 22:00 07/24/18 10:42 Topamax PO 50 mg BID CHRISTINE Administration Venlafaxine HCl 37.5 mg 07/16/18 21:00 07/24/18 10:42 Effexor PO 37.5 mg QDAY CHRISTINE Administration
[2018-07-24] MEDS: PROCARDIA XL PO SCH (21:25)
[2018-07-24] MEDS: LANTUS SUB-Q SCH (21:27)
[2018-07-25 06:10] LABS: Hematocrit 30.8 % (35.5-45.6); Hemoglobin 10.1 gm/dl (11.8-15.2)
[2018-07-25 06:32] LABS: Calcium 7.9 mg/dL (8.4-10.2)
[2018-07-25] MEDS: BABY ASPIRIN PO SCH (10:49)
[2018-07-25] MEDS: ATARAX PO SCH (10:49)
[2018-07-25] MEDS: RENVELA PO SCH ×2 (10:49→11:44)
[2018-07-25] MEDS: PLAVIX PO SCH (10:50)
[2018-07-25] MEDS: SODIUM CHLORIDE FLUSH SYRINGE 10 ML IV SCH (10:50)
[2018-07-25] MEDS: COREG PO SCH (10:50)
[2018-07-25] MEDS: COZAAR PO SCH (10:50)
[2018-07-25] MEDS: EFFEXOR PO SCH (10:50)
[2018-07-25] MEDS: PEPCID PO SCH (10:50)
[2018-07-25] MEDS: TOPAMAX PO SCH (10:50)
[2018-07-25] MEDS: Renal Caps PO SCH (10:51)
[2018-07-25] MEDS: HumaLOG SUB-Q SCH ×2 (10:51→11:44)
[2018-07-25] MEDS: PERCOCET 5/325 PO PRN (11:11)
[2018-07-25] MEDS ORDERED: NACL 0.9 (PRIMING MACHINE ONLY DIALYSIS) MC ONE (11:54)
--- NOTE | 2018-07-25 12:30 | Progress Note ---
Assessment and Plan End Stage Renal Disease on HD: -HD today for clearance and volume removal -Assess need for HD on daily basis -On renvela for hyperphosphatemia management -Renal diet -Monitor I/O's Chest Pain: - Cardiology on board, s/p C yesterday Hyponatremia: - fluid restriction Peripheral vascular disease: -Vascular surgery consulted, pt has significant arterial contribution and would benefit from revascularization once cardiac issues are addressed per Dr Belle note -Wound care Hypertension: -On Coreg and Losartan -Adjust regimen as needed Diabetes Mellitus type 2 on insulin: -On insulin as per primary Subjective Date of service: 07/25/18 Principal diagnosis: ESRD Interval history: was in HD this AM Objective - Vital Signs Vital signs: Vital Signs - 12hr 07/25/18 07/25/18 07/25/18 08:24 09:30 09:45 Temperature 97.9 F 98.2 F Pulse Rate 57 L 55 L 57 L Respiratory 16 16 Rate Blood Pressure 119/75 111/64 113/77 O2 Sat by Pulse 94 Oximetry 07/25/18 07/25/18 07/25/18 10:00 10:15 10:30 Temperature Pulse Rate 57 L 58 L 60 Respiratory Rate Blood Pressure 116/66 113/72 118/53 O2 Sat by Pulse Oximetry 07/25/18 07/25/18 07/25/18 10:45 11:00 11:15 Temperature Pulse Rate 116 H 62 62 Respiratory Rate Blood Pressure 127/99 130/78 126/82 O2 Sat by Pulse Oximetry 07/25/18 07/25/18 07/25/18 11:30 11:45 12:00 Temperature Pulse Rate 62 64 65 Respiratory Rate Blood Pressure 137/62 136/78 130/84 O2 Sat by Pulse Oximetry 07/25/18 12:15 Temperature Pulse Rate 65 Respiratory Rate Blood Pressure 129/84 O2 Sat by Pulse Oximetry - Lab 07/25/18 05:51 07/25/18 05:51 Most recent lab results Calcium 7.9 mg/dL (8.4-10.2) L 07/25/18 05:51 Phosphorus 5.90 mg/dL (2.5-4.5) H 07/25/18 05:51 Medications & Allergies - Medications Allergies/Adverse Reactions: Allergies No Known Allergies Allergy (Unverified 07/16/18 16:37) Home Medications: Home Medications Medication Instructions Recorded Confirmed Last Taken Type AtorvaSTATin [Lipitor] 20 mg PO QHS 07/16/18 07/16/18 Unknown History Carvedilol [Coreg] 25 mg PO BID 07/16/18 07/16/18 Unknown History Ergocalciferol (Vitamin D2) 50,000 unit PO QWEEK 07/16/18 07/16/18 Unknown History [Drisdol] Gabapentin [Gralise] 300 mg PO QHS 07/16/18 07/16/18 Unknown History Losartan [Cozaar] 100 mg PO QDAY 07/16/18 07/16/18 Unknown History NIFEdipine [Nifedipine ER] 90 mg PO QHS 07/16/18 07/16/18 Unknown History Sevelamer Carbonate [Renvela] 2,400 mg PO TIDWM 07/16/18 07/16/18 Unknown History Topiramate [Topamax] 50 mg PO BID 07/16/18 07/16/18 Unknown History Venlafaxine [Effexor 37.5mg tab] 37.5 mg PO QDAY 07/16/18 07/16/18 Unknown History Vit B Comp C/Folic Acid/Vit D3 1 each PO DAILY 07/16/18 07/16/18 Unknown History [Dialyvite 800 Plus D Wafer] hydrOXYzine HCl [Hydroxyzine HCl] 25 mg PO TID 07/16/18 07/16/18 Unknown History Aspirin [Aspirin BABY CHEW TAB] 81 mg PO QDAY #30 tab.chew 07/23/18 Unknown Rx Clopidogrel [Plavix] 75 mg PO QDAY #30 tablet 07/23/18 Unknown Rx Famotidine [Pepcid] 10 mg PO BID #60 tablet 07/23/18 Unknown Rx Insulin Glargine,Hum.rec.anlog 20 unit SQ QHS #30 vial 07/23/18 Unknown Rx [Lantus] oxyCODONE /ACETAMINOPHEN [Percocet 1 tab PO Q6H PRN #14 tablet 07/23/18 Unknown Rx 5/325 mg] Active Medications: Generic Name Dose Route Start Last Admin Trade Name Freq PRN Reason Stop Dose Admin Acetaminophen 650 mg 07/16/18 20:34 07/24/18 21:24 Tylenol PO 650 mg Q4H PRN Administration Pain MILD(1-3)/Fever >100.5/SANCHEZ Albumin Human 12.5 gm 07/17/18 11:23 Alburx 25% (Albumin) IV JOSE PRN Hypotension Aspirin 81 mg 07/23/18 10:00 07/25/18 10:49 Baby Aspirin PO Not Given QDAY [facility] Atorvastatin Calcium 20 mg 07/16/18 22:00 07/24/18 21:25 Lipitor PO 20 mg QHS [facility] Administration Carvedilol 25 mg 07/16/18 22:00 07/25/18 10:50 Coreg PO Not Given BID [facility] Clopidogrel Bisulfate 75 mg 07/23/18 10:00 07/25/18 10:50 Plavix PO Not Given QDAY [facility] Dextrose 50 gm 07/22/18 06:38 07/22/18 07:02 D50w (25gm) Vial IV 50 gm PRN PRN Administration Hypoglycemia Ergocalciferol 50,000 unit 07/17/18 10:00 07/24/18 11:20 Vitamin D2 PO 50,000 unit We [facility] Administration Famotidine 10 mg 07/16/18 22:00 07/25/18 10:50 Pepcid PO Not Given BID [facility] Hydroxyzine HCl 25 mg 07/16/18 23:00 07/25/18 10:49 Atarax PO Not Given TID [facility] Sodium Chloride 100 mls @ 999 mls/hr 07/21/18 09:40 Nacl 0.9% IV JOSE PRN Hypotension Insulin Glargine 25 units 07/18/18 22:00 07/24/18 21:27 Lantus SUB-Q Not Given QHS [facility] Insulin Human Lispro 10 unit 07/18/18 15:32 07/25/18 11:44 [facility] Protocol Losartan Potassium 100 mg 07/16/18 21:00 07/25/18 10:50 Cozaar PO Not Given QDAY [facility] Multivit/Ca Carb/B Cmplx/FA/Prenat 1 cap 07/16/18 21:00 07/25/18 10:51 Renal Caps PO Not Given DAILY [facility] Nifedipine 90 mg 07/16/18 22:00 07/24/18 21:25 Procardia Xl PO 90 mg QHS [facility] Administration Ondansetron HCl 4 mg 07/16/18 20:34 Zofran IV Q8H PRN Nausea And Vomiting Oxycodone/Acetaminophen 1 tab 07/16/18 20:34 04/04/19 11:11 Percocet 5/325 PO 1 tab Q6H PRN Administration Pain, Moderate (4-6) Sevelamer Carbonate 2,400 mg 07/17/18 08:00 07/25/18 11:44 Renvela PO Not Given TIDWM CHRISTINE Sodium Chloride 10 ml 07/16/18 22:00 07/25/18 10:50 Sodium Chloride Flush Syringe 10 Ml IV Not Given BID CHRISTINE Sodium Chloride 10 ml 07/16/18 20:58 Sodium Chloride Flush Syringe 10 Ml IV PRN PRN LINE FLUSH Topiramate 50 mg 07/16/18 22:00 07/25/18 10:50 Topamax PO Not Given BID CHRISTINE Venlafaxine HCl 37.5 mg 07/16/18 21:00 07/25/18 10:50 Effexor PO Not Given QDAY CHRIST[facility]
[2018-07-25 14:23] VITALS: BP 138/83
--- NOTE | 2018-07-25 14:36 | Discharge Summary ---
Providers - Providers Date of Admission: 07/16/18 14:47 Attending physician: THAO AVILA MD 07/16/18 20:34 Consult to Physician [CONS] Routine Comment: Consulting Provider: EVERARDO LOMELI Physician Instructions: Reason For Exam: end-stage renal disease 07/16/18 21:01 Consult to Wound/ET Nurse [CONS] Routine Reason For Exam: wound eval 07/17/18 09:42 Consult to Physician [CONS] Routine Comment: Consulting Provider: CESAR TONEY Physician Instructions: left foot diabetic ulcer Reason For Exam: diabetic ulcer 07/17/18 09:44 Consult to Physician [CONS] Routine Comment: ESRD Consulting Provider: EMILY FULTON Physician Instructions: Reason For Exam: chest pain. elevated troponin 07/19/18 08:56 Consult to Physician [CONS] Routine Comment: Consulting Provider: JAIDEN VOGT Physician Instructions: Reason For Exam: PVD 07/22/18 12:48 Consult to Cardiac Rehabilitation [CONS] Routine Reason For Exam: Cardiac Rehab Evaluation 07/24/18 14:17 Physical Therapy Evaluation and Treat [CONS] Routine Comment: Patient is blind Reason For Exam: PT- Eval/treat- deconditioning Primary care physician: [employer] Hospitalization Reason for admission: chest pain Condition: Stable Hospital course: 47-year-old -[place]ian male with history of end-stage renal disease, hypertension hyperlipidemia, vitamin D deficiency and peripheral neuropathy comes in for chest pain since last night. Chest pain is intermittent in nature. Retrosternal. Nonradiating. Pain is about 6 on a scale of 1-10. No diaphoresis no shortness of breath. Patient had dialysis yesterday but for only 2 hours. Patient says he had 3-4 days history of slurred speech but during my history taking there was no slurred speech or any weakness . No shortness of breath. No palpitations. No orthopnea. Patient also has a chronic open wound on left lower extremity elbows or ankle and medial aspect of the left foot. No fever or chills. Left foot wound--- open superficial ulcer on the left medial aspect of the foot with no signs of infection and also superficial ulcer on the mid anterior tibial region with no drainage or signs of infection.--Wound care consult was requested. Peripheral arterial disease to be ruled out Arterial duplex scan ordered. Patient underwent cardiac cath: pt has normal coronaries and normal lv function with moderate aortic stenosis, improvement from echo of 40-45%, treat medically, add plavix for pvd and cont asa, statin and coreg, arb as per renal, discuss with mother, pt will now followup up localy, for Cards and renal, , maybe discharged from cardiology point of view Patient was discharged post [facility]. vascular discused with the patients mother and support system and recommended outpatient evaluation, this was agreed to and the mother stated she will bring the patient. Offloading boots Darco was also prescribed by IR. On rearrangement but patient goes to rehabilitation this was discussed with case management because bilateral recommended of the rehabilitation will set up transport for this patient to come for his Patient was held an extra day due to lethargy following dialysis now improved and ready for discharge. refuses rehab initially then later requested to go to Rehab (1) Acute diastolic CHF (congestive heart failure), NYHA class 4 (2) Aortic stenosis Current Visit: Yes Status: Acute Qualifiers: Cardiac valve disease etiology: nonrheumatic Qualified Code(s): I35.0 - Nonrheumatic aortic (valve) stenosis (3) NSTEMI (non-ST elevated myocardial infarction) Current Visit: Yes Status: Acute (4) ESRD needing dialysis Current Visit: Yes Status: Chronic (5) Hyperlipidemia Current Visit: Yes Status: Chronic Qualifiers: Hyperlipidemia type: mixed hyperlipidemia Qualified Code(s): E78.2 - Mixed hyperlipidemia (6) Hypertension Current Visit: Yes Status: Chronic Qualifiers: Hypertension type: essential hypertension Qualified Code(s): I10 - Essential (primary) hypertension (7) PVD (peripheral vascular disease) Current Visit: Yes Status: Chronic Patient will follow with Vascular for further evaluation (8) Type 2 diabetes mellitus Current Visit: Yes Status: Chronic Sliding-scale insulin, Lantus 25 units daily at bedtime and Humalog 10 units TID Qualifiers: Diabetes mellitus fpc insulin use: without fpc use Diabetes mellitus complication status: with circulatory complication Diabetes mellitus complication detail: with peripheral angiopathy without gangrene Qualified Code(s): E11.51 - Type 2 diabetes mellitus with diabetic peripheral angiopathy without gangrene (9) Slurred speech - Patient said he went [place] when he has slurred speech and told has TIA but no workup was done - CT head was done and negative, no further workup needed (10) left foot and leg ulcer - Evaluated by Dr Toney and recommend wound care (11) Peripheral neuropathy Continue gabapentin (12) Depression Continue Effexor 37.5 mg daily (13) Vitamin D deficiency Continue vitamin D per schedule Disposition: [place]-03 [facility] Time spent for discharge: 35 mins Core Measure Documentation - Palliative Care Palliative Care/ Comfort Measures: Not Applicable - Core Measures Any of the following diagnoses?: none Exam - Physical Exam Narrative exam: Not in cardiopulmonary distress. The patient appeared well nourished and normally developed. Vital signs as documented. Head exam is unremarkable. No scleral icterus . Neck is without jugular venous distension, thyromegaly, or carotid bruits. Lungs are clear to auscultation. Cardiac exam reveals regular rate and Rhythm. First and second heart sounds normal. No murmurs, rubs or gallops. Abdominal exam reveals normal bowel sounds, no masses, no organomegaly and no aortic enlargement. Extremities bliateral chronic LE swelling and ulcer on the left leg and foot. SUPERVISOR COSTUMING: Alert and oriented 3. No focal weakness. - Constitutional Vitals: Temp Pulse Resp BP Pulse Ox 98.2 F 66 16 138/83 94 07/25/18 12:45 07/25/18 12:45 07/25/18 12:45 07/25/18 12:45 07/25/18 08:24 Plan Follow up with: JAIDEN VOGT MD [Staff Physician] - 7 Days EVERARDO LOMELI MD [Staff Physician] - 7 Days PRIMARY CARE, [Primary Care Provider] - 3-5 Days CESAR TONEY MD [Staff Physician] - 7 Days JEAN CISNEROS MD [Staff Physician] - 7 Days Prescriptions: Insulin Glargine,Hum.rec.anlog [Lantus] 20 unit SQ QHS #30 vial Aspirin [Aspirin BABY CHEW TAB] 81 mg PO QDAY #30 tab.chew Famotidine [Pepcid] 10 mg PO BID #60 tablet oxyCODONE /ACETAMINOPHEN [Percocet 5/325 mg] 1 tab PO Q6H PRN #14 tablet PRN Reason: Pain, Moderate (4-6) Clopidogrel [Plavix] 75 mg PO QDAY #30 tablet Other Discharge Orders: Glucometer (Amb) Location: None Selected Glucometer supplies[Amb] Location: None Selected
== END 2018-07-25 16:39 | DRG 280 ==
LOC: ED 11:43 → 4A 14:47
PROVIDERS: ADMIT Internal Medicine; ATTEND Internal Medicine
PROC: 5A1D70Z Performance of Urinary Filtration, Intermittent, Less than 6 Hours Per Day (ICD-10-PCS; 2018-07-17)
PROC: 5A1D70Z Performance of Urinary Filtration, Intermittent, Less than 6 Hours Per Day (ICD-10-PCS; 2018-07-19)
PROC: 5A1D70Z Performance of Urinary Filtration, Intermittent, Less than 6 Hours Per Day (ICD-10-PCS; 2018-07-22)
PROC: 4A023N7 Measurement of Cardiac Sampling and Pressure, Left Heart, Percutaneous Approach (ICD-10-PCS; principal; 2018-07-23)
PROC: B2111ZZ Fluoroscopy of Multiple Coronary Arteries using Low Osmolar Contrast (ICD-10-PCS; 2018-07-23)
PROC: 5A1D70Z Performance of Urinary Filtration, Intermittent, Less than 6 Hours Per Day (ICD-10-PCS; 2018-07-23)
PROC: 5A1D70Z Performance of Urinary Filtration, Intermittent, Less than 6 Hours Per Day (ICD-10-PCS; 2018-07-25)
DX: I21.A1 Myocardial infarction type 2 (principal); N18.6 End stage renal disease; I50.31 Acute diastolic (congestive) heart failure; I13.2 Hypertensive heart and chronic kidney disease with heart failure and with stage 5 chronic kidney disease, or end stage renal disease; L97.829 Non-pressure chronic ulcer of other part of left lower leg with unspecified severity; E87.1 Hypo-osmolality and hyponatremia; R47.81 Slurred speech; H54.7 Unspecified visual loss; I35.0 Nonrheumatic aortic (valve) stenosis; E11.622 Type 2 diabetes mellitus with other skin ulcer; E11.51 Type 2 diabetes mellitus with diabetic peripheral angiopathy without gangrene; E11.42 Type 2 diabetes mellitus with diabetic polyneuropathy; R74.8 Abnormal levels of other serum enzymes; L97.519 Non-pressure chronic ulcer of other part of right foot with unspecified severity; E78.2 Mixed hyperlipidemia; F32.9 Major depressive disorder, single episode, unspecified; E11.621 Type 2 diabetes mellitus with foot ulcer; L97.529 Non-pressure chronic ulcer of other part of left foot with unspecified severity; Z99.2 Dependence on renal dialysis; Z82.49 Family history of ischemic heart disease and other diseases of the circulatory system; Z83.3 Family history of diabetes mellitus; Z79.899 Other long term (current) drug therapy; Z79.84 Long term (current) use of oral hypoglycemic drugs; Z95.828 Presence of other vascular implants and grafts
CPT/HCPCS: 36415; 70450; 71045; 78452; 78582; 80048; 80053; 80061; 80074; 82947; 82962; 83036; 84100; 84484; 85014; 85018; 85025; 85027; 85049; 85379; 85520; 85610; 85730; 93005; 93010; 93017; 93306; 93458; 93925; 94760; G0378; A9270-GY; A9502; A9540; A9558; C1751; C1769; C1894; J1250; J1644; J1815; J2250; J2310; J2785; J3010; J7030; J7040; Q9967

== ENCOUNTER 2018-08-19 06:31 | Day surgery (SDC) | payer MEDICARE ==
[2018-08-19] MEDS ORDERED: NACL 0.9% 500 ML 500 ML IV SCH (07:00)
[2018-08-19 07:35] LABS: INR 1.13 (0.87-1.13)
[2018-08-19 07:36] LABS: Partial Thromboplastin Time 31.2 Sec. (24.2-36.6)
[2018-08-19 07:42] LABS: Calcium 9.3 mg/dL (8.4-10.2)
[2018-08-19] MEDS ORDERED: APRESOLINE IV ONE ×2 (08:00→13:11)
[2018-08-19] MEDS ORDERED: HEPARIN/NS 5000 UNIT/500ML(CATH LAB) 500 ML IR ONE ×2 (08:24→08:58)
[2018-08-19] MEDS ORDERED: HEPARIN 10,000 UNITS/10 ML ONE (08:24)
[2018-08-19 08:43] LABS: Hematocrit 39.6 % (35.5-45.6); Hemoglobin 12.9 gm/dl (11.8-15.2); Red Blood Count 4.17 M/mm3 (3.65-5.03)
[2018-08-19 08:44] LABS: Basophils # (Auto) 0.1 K/mm3 (0.0-0.1); Basophils % (Auto) 0.7 % (0.0-1.8); Eosinophils # (Auto) 0.4 K/mm3 (0.0-0.4); Lymphocytes # (Auto) 2.1 K/mm3 (1.2-5.4); Lymphocytes % (Auto) 23.6 % (13.4-35.0); Mean Corpuscular HGB Conc 33 % (32-34); Mean Corpuscular Volume 95 fl (84-94); Monocytes # (Auto) 0.8 K/mm3 (0.0-0.8); Monocytes % (Auto) 8.8 % (0.0-7.3); Platelet Count 238 K/mm3 (140-440); Red Cell Distribution Width 16.9 % (13.2-15.2)
[2018-08-19] MEDS: XYLOCAINE 2% INFILTRATI ONE ×2 (08:46→09:00)
[2018-08-19] MEDS: VERSED ONE ×3 (08:46→09:12)
[2018-08-19] MEDS: SUBLIMAZE ONE ×3 (08:46→09:12)
[2018-08-19] MEDS: APRESOLINE ONE ×2 (09:00→09:05)
[2018-08-19] MEDS ORDERED: VERSED ONE (09:30)
[2018-08-19] MEDS ORDERED: SUBLIMAZE ONE (09:30)
--- NOTE | 2018-08-19 10:07 | Short Stay Summary ---
Short Stay Documentation Date of service: 08/19/18 Narrative H&P: 47 year old male with ESRD and bilateral lower extremity CLI s/p right LE revascularization who presents for left LE revascularization. R/B/A discussed. - History Principal diagnosis: CLI with gangrene H&P: obtained from office Past Medical History: diabetes, dialysis, ESRD - Allergies and Medications Current Medications: Allergies No Known Allergies Allergy (Unverified 07/16/18 16:37) Home Medications Medication Instructions Recorded Confirmed Last Taken Type AtorvaSTATin [Lipitor] 20 mg PO QHS 07/16/18 08/19/18 08/18/18 History 20mg Carvedilol [Coreg] 25 mg PO BID 07/16/18 08/19/18 08/18/18 History 25mg Ergocalciferol (Vitamin D2) 50,000 unit PO QWEEK 07/16/18 08/19/18 08/16/18 History [Drisdol] 34832 units Gabapentin [Gralise] 300 mg PO QHS 07/16/18 08/19/18 08/18/18 History 300mg Losartan [Cozaar] 100 mg PO QDAY 07/16/18 08/19/18 08/18/18 History 100mg NIFEdipine [Nifedipine ER] 90 mg PO QHS 07/16/18 08/19/18 08/18/18 History 90mg Sevelamer Carbonate [Renvela] 2,400 mg PO TIDWM 07/16/18 08/19/18 08/18/18 History 3 tabs Topiramate [Topamax] 50 mg PO BID PRN 07/16/18 08/19/18 08/01/18 History 50mg Venlafaxine [Effexor 37.5mg tab] 37.5 mg PO QDAY 07/16/18 08/19/18 08/18/18 History 37.5mg Vit B Comp C/Folic Acid/Vit D3 1 each PO DAILY 07/16/18 08/19/18 08/18/18 History [Dialyvite 800 Plus D Wafer] 1 tab hydrOXYzine HCl [Hydroxyzine HCl] 25 mg PO TID 07/16/18 08/19/18 08/18/18 Histor y 25mg Aspirin [Aspirin BABY CHEW TAB] 81 mg PO QDAY #30 tab.chew 07/23/18 08/19/1819 Rx 81mg Clopidogrel [Plavix] 75 mg PO QDAY #30 tablet 07/23/18 08/19/18 08/16/18 Rx 75mg Famotidine [Pepcid] 10 mg PO BID #60 tablet 07/23/18 08/19/18 08/18/18 Rx 10mg Insulin Glargine,Hum.rec.anlog 20 unit SQ QHS #30 vial 07/23/18 08/19/18 08/18/18 20:00 Rx [Lantus] 20units oxyCODONE /ACETAMINOPHEN [Percocet 1 tab PO Q6H PRN #14 tablet 07/23/18 08/19/18 08/18/18 Rx 5/325 mg] 1 tab Active Medications Sodium Chloride (Nacl 0.9% 500 Ml) 500 mls @ 50 mls/hr IV DIRECT CHRISTINE - Physical exam General appearance: no acute distress Lungs: Normal air movement Gastrointestinal: normal Extremities: normal temperature, normal color, abnormal (gangrene of LE) - Brief post op/procedure progress note Date of procedure: 08/19/18 Pre-op diagnosis: Bilateral CLI with ESRD Post-op diagnosis: same Procedure: 1. Ultrasound guided access of the right common femoral artery 2. Angiography of the right lower extremity. 3. Selection of the abdominal aorta with angiography. 4. Selection of the left external iliac artery, common femoral artery, superficial femoral artery, and anterior tibial artery 5. Placement of 3 mm spider embolic protection device left distal anterior tibial artery 6. Atherectomy of the left anterior tibial artery with a Hawkone S device with angioplasty with a 2.5 mm x 120 mm nanocross balloon 7. Retrieval of the spider embolic protection device 8. Closure of the right common femoral artery with a 6 Fr proglide Anesthesia: local (w/ conscious sedation) Surgeon: JAIDEN VOGT Estimated blood loss: minimal Condition: stable - Hospital course Hospital course: Ready for discharge - Disposition Condition at discharge: Stable Disposition: DC/[place]-03 SNF [facility] - Discharge Diagnoses (1) Atherosclerosis of lower extremity with gangrene Status: Acute (2) ESRD needing dialysis Status: Chronic (3) Critical ischemia of lower extremity Status: Acute Short Stay Discharge Plan Activity: advance as tolerated Weight Bearing Status: Weight Bear as Tolerated Diet: renal Wound: keep clean and dry, other (remove pressure dressing 3/30/19 in AM) Follow up with: CARLOS SANDERS MD [Primary Care Provider] - 7 Days
--- NOTE | 2018-08-19 10:10 | Operative Report ---
Operative Report Operative Report: EXAM: 1. Ultrasound guided access of the right common femoral artery 2. Angiography of the right lower extremity. 3. Selection of the abdominal aorta with angiography. 4. Selection of the left external iliac artery, common femoral artery, superficial femoral artery, and anterior tibial artery 5. Placement of 3 mm spider embolic protection device left distal anterior tibial artery 6. Atherectomy of the left anterior tibial artery with a Hawkone S device with angioplasty with a 2.5 mm x 120 mm nanocross balloon 7. Retrieval of the spider embolic protection device 8. Closure of the right common femoral artery with a 6 Fr proglide DATE: 08/19/18 RETAIL PHARMACY MANAGER: JAIDEN VOGT MD INDICATION: Critical limb ischemia of the bilateral lower extremities, status post revascularization of the right lower extremity and now presents for revascularization of the left lower extremity MEDICATIONS: Please see nursing report for full details. DEVICES: 3 mm spider embolic protection device 2.5 mm x 120 mm now across angioplasty balloon Hawkone S device CONTRAST: 90 mL of nonionic contrast PROCEDURE: The risks, benefits, and alternatives were discussed with the patient; written informed consent was obtained. The patient's groins were prepped and draped in a sterile fashion. Ultrasound is used to identify the right common femoral artery which was patent. Under direct ultrasound guidance, the right common femoral artery was accessed with a 21-gauge micropuncture needle. 0.018 inch wire was passed into the aorta. Change for transitional dilator. Wire was exchanged for 0.035 inch wire. Transitional dilator was exchanged for a 5 Salvadorean sheath. Digital subtraction angiography was performed demonstrating appropriate puncture, above the bifurcation and below the inferior epigastric artery. The right common femoral artery, profunda femoral artery, and superficial femoral artery was patent. The abdominal aorta was selected with a flush catheter and digital subtraction angiography was performed demonstrating patency of the abdominal aorta, bilateral common iliac arteries, bilateral external iliac arteries, and bilateral internal iliac arteries. The left external iliac artery was selected and digital subtraction angiography was performed. The left common femoral artery was selected and digital subtraction angiography was performed. The left superficial femoral artery was selected and digital subtraction angiography was performed. Digital subtraction angiography demonstrated patency of the left common femoral artery, profunda femoral artery, superficial femoral artery and popliteal artery. Patency of the tibioperoneal trunk. Small, but patent peroneal artery. The posterior tibial artery was patent throughout its course. The mid left anterior tibial artery had a focal 95% narrowing with focal 40-50% narrowings above and below the lesion. There was good distribution into the foot with poor transit from the anterior tibial artery. The patient was heparinized. Sheath was exchanged for 6 Salv[place]orean 90 cm [place] destination positioned in the left popliteal artery. The left anterior tibial artery was selected and digital subtraction angiography was performed confirming position. The V 18 wire was used to cross the lesion and positioned in the left distal anterior tibial artery. Wire was exchanged for 3 mm spider embolic protection device. Atherectomy was performed of the mid anterior tibial artery at the areas of narrowing until there was less than 30% residual narrowing. Afterwards, 2.5 mm x 120 mm nanocross balloon. Digital subtraction angiography demonstrated less than 10% residual narrowing with no distal embolization. Embolic protection device was then retrieved. Digital subtraction angiography demonstrates less than 10% residual narrowing with no distal embolization. All wires, catheters, and sheath was retracted to the right external iliac artery. Sheath was exchanged for 6 Salvadorean Pro-glide. Pro-glide was successfully deployed achieving immediate hemostasis. Sterile dressing applied. The patient tolerated procedure well. No immediate postprocedural complications. FINDINGS: Please see procedure note above IMPRESSION: 1. Successful atherectomy and angioplasty of the left anterior tibial artery.
[2018-08-19] MEDS ORDERED: CATAPRES PO ONE (13:02)
[2018-08-19] MEDS ORDERED: APRESOLINE ONE (13:12)
[2018-08-19] MEDS ORDERED: COZAAR PO SCH (14:00)
[2018-08-19 15:40] VITALS: BP 173/84
== END 2018-08-19 15:20 ==
LOC: CATHLABREC 06:31
PROVIDERS: ATTEND Radiology Diagnostic Radiology
DX: I70.262 Atherosclerosis of native arteries of extremities with gangrene, left leg (principal); I13.2 Hypertensive heart and chronic kidney disease with heart failure and with stage 5 chronic kidney disease, or end stage renal disease; N18.6 End stage renal disease; E11.22 Type 2 diabetes mellitus with diabetic chronic kidney disease; I50.9 Heart failure, unspecified; E11.52 Type 2 diabetes mellitus with diabetic peripheral angiopathy with gangrene; F32.9 Major depressive disorder, single episode, unspecified; E78.5 Hyperlipidemia, unspecified; Z90.49 Acquired absence of other specified parts of digestive tract; Z99.2 Dependence on renal dialysis; Z98.890 Other specified postprocedural states; Z83.3 Family history of diabetes mellitus; Z79.899 Other long term (current) drug therapy; Z79.4 Long term (current) use of insulin; Z79.82 Long term (current) use of aspirin; Z82.49 Family history of ischemic heart disease and other diseases of the circulatory system
CPT/HCPCS: 36415; 37229; 76937; 80048; 82962; 85025; 85610; 85730; 99156; 99157; C1714; C1725; C1760; C1769; C1887; J0360; J1644; J2250; J3010; J7040; Q9967

== ENCOUNTER 2019-02-06 15:10 | Emergency (ER) | payer MEDICARE ==
[2019-02-06 15:29] VITALS: BP 117/73
--- NOTE | 2019-02-06 15:37 | Emergency Department Report ---
ED General Adult HPI - General Chief complaint: Fall Stated complaint: FALL Time Seen by Provider: 02/06/19 15:36 Source: EMS Mode of arrival: Ambulatory Limitations: No Limitations - History of Present Illness Initial comments: 48-year-old male who is blind with a history of end-stage renal disease, hypertension, for follow-up V, aortic stenosis, peripheral vascular disease and diabetes presents after having a fall while in transport it to dialysis. Patient states that he was being transported to dialysis 5 the ambulance and states that his got caught on the wheel and he fell forward. Patient denies any head trauma. Patient states that he fell on his knees and wrists. Patient then went to dialysis and completed 3-1/2 hours of therapy. Patient's heparin was withheld. Patient's family member then wanted the patient to be evaluated in emergency department and ambulance brought him here for evaluation. Patient currently denies any pain. Patient has no lacerations on the upper or lower extremities. Patient has no active bleeding in the lower extremities either. Patient denies any acute chest pain or shortness of breath prior to fall. - Related Data Home Medications Medication Instructions Recorded Confirmed Last Taken AtorvaSTATin [Lipitor] 20 mg PO QHS 07/16/18 08/19/18 08/18/18 20 mg Carvedilol [Coreg] 25 mg PO BID 07/16/18 08/19/18 08/18/18 25 mg Ergocalciferol (Vitamin D2) 50,000 unit PO QWEEK 07/16/18 08/19/18 08/16/18 [Drisdol] 33131 units Gabapentin [Gralise] 300 mg PO QHS 07/16/18 08/19/18 08/18/18 300 mg Losartan [Cozaar] 100 mg PO QDAY 07/16/18 08/19/18 08/18/18 100 mg NIFEdipine [Nifedipine ER] 90 mg PO QHS 07/16/18 08/19/18 08/18/18 90 mg Sevelamer Carbonate [Renvela] 2,400 mg PO TIDWM 07/16/18 08/19/18 08/18/18 3 tabs Topiramate [Topamax] 50 mg PO BID PRN 07/16/18 08/19/18 08/01/18 50 mg Venlafaxine [Effexor 37.5mg tab] 37.5 mg PO QDAY 07/16/18 08/19/18 08/18/18 37.5mg Vit B Comp C/Folic Acid/Vit D3 1 each PO DAILY 07/16/18 08/19/18 08/18/18 [Dialyvite 800 Plus D Wafer] 1 tab hydrOXYzine HCl [Hydroxyzine HCl] 25 mg PO TID 07/16/18 08/19/18 08/18/18 25 mg Previous Rx's Medication Instructions Recorded Last Taken Type Aspirin [Aspirin BABY CHEW TAB] 81 mg PO QDAY #30 tab.chew 07/23/18 08/16/18 Rx 81 mg Clopidogrel [Plavix] 75 mg PO QDAY #30 tablet 07/23/18 08/16/18 Rx 75 mg Famotidine [Pepcid] 10 mg PO BID #60 tablet 07/23/18 08/18/18 Rx 10 mg Insulin Glargine,Hum.rec.anlog 20 unit SQ QHS #30 vial 07/23/18 08/18/18 20:00 Rx [Lantus] 20 units oxyCODONE /ACETAMINOPHEN [Percocet 1 tab PO Q6H PRN #14 tablet 07/23/18 08/18/18 Rx 5/325 mg] 1 tab Allergies Allergy/AdvReac Type Severity Reaction Status Date / Time No Known Allergies Allergy Unverified 07/16/18 16:37 ED Review of Systems ROS: Stated complaint: FALL Other details as noted in HPI Constitutional: denies: chills, fever Eyes: denies: eye pain, eye discharge, vision change ENT: denies: ear pain, throat pain Respiratory: denies: cough, shortness of breath, wheezing Cardiovascular: denies: chest pain, palpitations Endocrine: no symptoms reported Gastrointestinal: denies: abdominal pain, nausea, diarrhea Genitourinary: denies: urgency, dysuria Musculoskeletal: denies: back pain, joint swelling, arthralgia Skin: denies: rash, lesions Neurological: denies: headache, weakness, paresthesias Psychiatric: denies: anxiety, depression Hematological/Lymphatic: denies: easy bleeding, easy bruising ED Past Medical Hx - Past Medical History Previous Medical History?: Yes Hx Hypertension: Yes Hx Congestive Heart Failure: Yes Hx Diabetes: Yes Hx Asthma: No Hx COPD: No Hx Dementia: Yes Additional medical history: dialysis, TIA, blind, foot ulcers R foot, blind for 1 year 4 months - Surgical History Past Surgical History?: Yes Hx Cholecystectomy: Yes Additional Surgical History: l upper arm fistula - Social History Smoking Status: Unknown if ever smoked Substance Use Type: None - Medications Home Medications: Home Medications Medication Instructions Recorded Confirmed Last Taken Type AtorvaSTATin [Lipitor] 20 mg PO QHS 07/16/18 08/19/18 08/18/18 History 20 mg Carvedilol [Coreg] 25 mg PO BID 07/16/18 08/19/18 08/18/18 History 25 mg Ergocalciferol (Vitamin D2) 50,000 unit PO QWEEK 07/16/18 08/19/18 08/16/18 History [Drisdol] 40022 units Gabapentin [Gralise] 300 mg PO QHS 07/16/18 08/19/18 08/18/18 History 300 mg Losartan [Cozaar] 100 mg PO QDAY 07/16/18 08/19/18 08/18/18 History 100 mg NIFEdipine [Nifedipine ER] 90 mg PO QHS 07/16/18 08/19/18 08/18/18 History 90 mg Sevelamer Carbonate [Renvela] 2,400 mg PO TIDWM 07/16/18 08/19/18 08/18/18 History 3 tabs Topiramate [Topamax] 50 mg PO BID PRN 07/16/18 08/19/18 08/01/18 History 50 mg Venlafaxine [Effexor 37.5mg tab] 37.5 mg PO QDAY 07/16/18 08/19/18 08/18/18 History 37.5mg Vit B Comp C/Folic Acid/Vit D3 1 each PO DAILY 07/16/18 08/19/18 08/18/18 History [Dialyvite 800 Plus D Wafer] 1 tab hydrOXYzine HCl [Hydroxyzine HCl] 25 mg PO TID 07/16/18 08/19/18 08/18/18 History 25 mg Aspirin [Aspirin BABY CHEW TAB] 81 mg PO QDAY #30 tab.chew 07/23/18 08/19/18 Rx 81 mg Clopidogrel [Plavix] 75 mg PO QDAY #30 tablet 04/02/19 04/29/19 04/26/19 Rx 75 mg Famotidine [Pepcid] 10 mg PO BID #60 tablet 07/23/18 08/19/18 08/18/18 Rx 10 mg Insulin Glargine,Hum.rec.anlog 20 unit SQ QHS #30 vial 07/23/18 08/19/18 08/18/18 20:00 Rx [Lantus] 20 units oxyCODONE /ACETAMINOPHEN [Percocet 1 tab PO Q6H PRN #14 tablet 07/23/18 08/19/18 08/18/18 Rx 5/325 mg] 1 tab ED Physical Exam - General Limitations: No Limitations General appearance: alert, in no apparent distress - Head Head exam: Present: atraumatic, normocephalic, normal inspection - Eye Eye exam: Present: normal appearance - ENT ENT exam: Present: mucous membranes moist - Neck Neck exam: Present: normal inspection - Respiratory Respiratory exam: Present: normal lung sounds bilaterally. Absent: respiratory distress - Cardiovascular Cardiovascular Exam: Present: regular rate, normal rhythm. Absent: systolic murmur, diastolic murmur, rubs, gallop - GI/Abdominal GI/Abdominal exam: Present: soft, normal bowel sounds - Rectal Rectal exam: Present: deferred - Extremities Exam Extremities exam: Present: normal inspection, full ROM. Absent: tenderness - Back Exam Back exam: Present: normal inspection - Neurological Exam Neurological exam: Present: alert, oriented X3 - Psychiatric Psychiatric exam: Present: normal affect, normal mood - Skin Skin exam: Present: warm, dry, intact, normal color. Absent: rash ED Course Vital Signs 02/06/19 15:23 Temperature 98 F Pulse Rate 75 Respiratory 12 Rate Blood Pressure 117/73 O2 Sat by Pulse 95 Oximetry ED Medical Decision Making - Medical Decision Making Patient has full range of motion and has no abrasions, contusion or laceration on extremity. Patient denies any head trauma. Patient be discharged to follow up with PCP. - Differential Diagnosis Fracture; contusion; abrasion; Critical care attestation.: If time is entered above; I have spent that time in minutes in the direct care of this critically ill patient, excluding procedure time. ED Disposition Clinical Impression: Musculoskeletal pain of extremity, ESRD (end stage renal disease) Disposition: TO HOME OR SELFCARE Is pt being admited?: No Condition: Stable Instructions: Fall Prevention (ED) Time of Disposition: 16:02 Print Language: CITIZEN OF [place]
== END 2019-02-06 17:30 | disposition home or self-care (01) ==
LOC: ED 15:10
DX: M25.562 Pain in left knee (principal); M25.561 Pain in right knee; M25.532 Pain in left wrist; M25.531 Pain in right wrist; I13.2 Hypertensive heart and chronic kidney disease with heart failure and with stage 5 chronic kidney disease, or end stage renal disease; I50.9 Heart failure, unspecified; E11.22 Type 2 diabetes mellitus with diabetic chronic kidney disease; N18.6 End stage renal disease; F03.90 Unspecified dementia, unspecified severity, without behavioral disturbance, psychotic disturbance, mood disturbance, and anxiety; Z99.2 Dependence on renal dialysis; Z90.49 Acquired absence of other specified parts of digestive tract; Z98.890 Other specified postprocedural states; Z79.899 Other long term (current) drug therapy; W18.39XA Other fall on same level, initial encounter; Y93.89 Activity, other specified; Y92.89 Other specified places as the place of occurrence of the external cause; Y99.8 Other external cause status